=== PATIENT | male | born 1960 | race Caucasian/White ===

== ENCOUNTER 2020-09-10 12:50 | Inpatient (IN) | payer OTHER ==
[~2020-09-10] VITALS: Ht 170.2 cm; Wt 82.5 kg
[~2020-09-10 12:50] MED LIST: ASPI81CH PO; CHLO10 PO; DIAZ5 PO; DOCU100 PO; ERGO50000 PO; HYDACE10B PO; IBUP400; IBUP800 PO; LISHYD1012; LISHYD1012 PO; OXYACE5T PO; OXYC5 PO; PROM25 PO; SIMV10 PO; TRAM50; TRAM50 PO; Veetids 500500 MG PO
[2020-09-10 13:47] LABS: BASOPHILS ABSOLUTE AUTO 0.07 K/mm3 (0.00-0.23); BASOPHILS PERCENT AUTO 1 % (0-2); EOSINOPHILS ABSOLUTE AUTO 0.04 K/mm3 (0.00-0.68); EOSINOPHILS PERCENT AUTO 1 % (0-6); Hematocrit 33.1 % (37.0-53.0); Hemoglobin 11.3 g/dL (13.5-17.5); IMMATURE GRAN ABSOLUTE AUTO 0.04 K/mm3 (0.00-0.10); IMMATURE GRAN PERCENT AUTO 1 % (0-1); LYMPHOCYTES ABSOLUTE AUTO 1.17 K/mm3 (0.84-5.20); LYMPHOCYTES PERCENT AUTO 20 % (21-46); MONOCYTES ABSOLUTE AUTO 0.52 K/mm3 (0.16-1.47); MONOCYTES PERCENT AUTO 9 % (4-13); Mean Corpuscular HGB 30.6 pg (26.0-34.0); Mean Corpuscular HGB Conc 34.1 g/dL (31.5-36.5); Mean Corpuscular Volume 90 fL (80-100); Mean Platelet Volume 10.9 fL (9.1-12.4); NEUTROPHILS ABSOLUTE AUTO 4.12 K/mm3 (1.96-9.15); NEUTROPHILS PERCENT AUTO 69 % (41-73); NRBC ABSOLUTE 0.29 K/mm3 (0.00-0.02); NRBC Auto 4.9 /100 WBC (0.0-0.2); Platelet Count 91 K/mm3 (150-400); RDW Coefficient Variation 15.5 % (11.7-14.2); RDW Standard Deviation 50.4 fL (35.1-46.3); Red Blood Cell Count 3.69 M/mm3 (4.30-5.90); White Blood Cell Count 5.96 K/mm3 (4.00-11.30)
[2020-09-10 14:12] LABS: Alanine Aminotransfer (ALT/SGP 73 U/L (12-78); Albumin, Blood 2.8 g/dL (3.4-5.0); Albumin/Globulin Ratio 0.5 (0.8-1.8); Alk Phos 311 U/L (50-136); Anion Gap 10 mmol/L (6-16); Aspartate Aminotrans (AST/SGOT 196 U/L (12-37); Bilirubin, Total 4.6 mg/dL (0.1-1.0); Blood Urea Nitrogen 17 mg/dL (8-24); Bun/Creatinine Ratio 16.2 (12.0-20.0); CO2, Blood 24 mmol/L (21-32); Calcium, Blood 9.3 mg/dL (8.5-10.1); Chloride, Blood 94 mmol/L (98-108); Creatinine, Blood 1.05 mg/dL (0.60-1.20); Globulin, Blood 5.3 g/dL (2.2-4.0); Glomerular Filtration Rate >60 (60-); Glucose, Blood 154 mg/dL (70-99); Potassium, Blood 3.8 mmol/L (3.5-5.5); Sodium, Blood 128 mmol/L (136-145); Total Protein, Blood 8.1 g/dL (6.4-8.2); Troponin I <0.015 ng/mL (0.000-0.040)
[2020-09-10 17:03] LABS: Appearance, Urine Clear (Clear); Blood, Urine 2+ (Neg); Color, Urine Brown (P-Yellow); Glucose Qualitative, Urine Neg (Neg); Ketones, Urine 2+ (Neg); Leukocyte Esterase, Urine 1+ (Neg); Nitrite, Urine Neg (Neg); Protein, Urine 2+ (Neg); Specific Gravity, Urine 1.015 (1.003-1.022); Urobilinogen, Urine 4+ (Normal)
[2020-09-10 17:23] LABS: Bilirubin, Urine 2+ (Neg)
[2020-09-10 17:24] LABS: Squamous Epithelial Cells Rare /hpf (Few); White Blood Cells, Urine 0-2 /hpf (0-5)
[2020-09-10 17:34] LABS: Mucus Light (0-Heavy)
[2020-09-10 17:35] LABS: Bacteria Mod /hpf
[2020-09-10 21:04] LABS: Alanine Aminotransfer (ALT/SGP 60 U/L (12-78); Albumin, Blood 2.3 g/dL (3.4-5.0); Albumin/Globulin Ratio 0.5 (0.8-1.8); Alk Phos 250 U/L (50-136); Anion Gap 8 mmol/L (6-16); Aspartate Aminotrans (AST/SGOT 171 U/L (12-37); Bilirubin, Total 3.7 mg/dL (0.1-1.0); Blood Urea Nitrogen 15 mg/dL (8-24); CO2, Blood 24 mmol/L (21-32); Calcium, Blood 8.2 mg/dL (8.5-10.1); Chloride, Blood 97 mmol/L (98-108); Creatinine, Blood 0.94 mg/dL (0.60-1.20); Globulin, Blood 4.5 g/dL (2.2-4.0); Glomerular Filtration Rate >60 (60-); Glucose, Blood 252 mg/dL (70-99); Magnesium, Blood 1.9 mg/dL (1.6-2.4); Potassium, Blood 3.5 mmol/L (3.5-5.5); Sodium, Blood 129 mmol/L (136-145); Total Protein, Blood 6.8 g/dL (6.4-8.2)
[2020-09-10 23:52] LABS: Influenza A, PCR Negative (NEGATIVE); Influenza B, PCR Negative (NEGATIVE); Resp Syncytial Virus, PCR Negative (NEGATIVE); SARS-Cov-2 (COVID-19) PCR, MMC Negative (NEGATIVE)
[2020-09-11 02:20] LABS: BASOPHILS ABSOLUTE AUTO 0.03 K/mm3 (0.00-0.23); BASOPHILS PERCENT AUTO 1 % (0-2); EOSINOPHILS ABSOLUTE AUTO 0.07 K/mm3 (0.00-0.68); EOSINOPHILS PERCENT AUTO 2 % (0-6); Hematocrit 27.3 % (37.0-53.0); Hemoglobin 9.3 g/dL (13.5-17.5); IMMATURE GRAN ABSOLUTE AUTO 0.03 K/mm3 (0.00-0.10); IMMATURE GRAN PERCENT AUTO 1 % (0-1); LYMPHOCYTES ABSOLUTE AUTO 1.04 K/mm3 (0.84-5.20); LYMPHOCYTES PERCENT AUTO 22 % (21-46); MONOCYTES PERCENT AUTO 11 % (4-13); Mean Corpuscular HGB Conc 34.1 g/dL (31.5-36.5); Mean Corpuscular Volume 91 fL (80-100); Mean Platelet Volume 10.7 fL (9.1-12.4); NEUTROPHILS ABSOLUTE AUTO 3.05 K/mm3 (1.96-9.15); NEUTROPHILS PERCENT AUTO 65 % (41-73); NRBC ABSOLUTE 0.27 K/mm3 (0.00-0.02); NRBC Auto 5.7 /100 WBC (0.0-0.2); Platelet Count 77 K/mm3 (150-400); RDW Coefficient Variation 15.3 % (11.7-14.2); RDW Standard Deviation 51.2 fL (35.1-46.3); White Blood Cell Count 4.72 K/mm3 (4.00-11.30)
[2020-09-11 02:35] LABS: Alanine Aminotransfer (ALT/SGP 57 U/L (12-78); Albumin, Blood 2.1 g/dL (3.4-5.0); Albumin/Globulin Ratio 0.5 (0.8-1.8); Alk Phos 244 U/L (50-136); Anion Gap 9 mmol/L (6-16); Aspartate Aminotrans (AST/SGOT 180 U/L (12-37); Bilirubin, Total 3.8 mg/dL (0.1-1.0); Blood Urea Nitrogen 15 mg/dL (8-24); Bun/Creatinine Ratio 13.3 (12.0-20.0); CO2, Blood 24 mmol/L (21-32); Chloride, Blood 99 mmol/L (98-108); Creatinine, Blood 1.13 mg/dL (0.60-1.20); Globulin, Blood 4.2 g/dL (2.2-4.0); Glomerular Filtration Rate >60 (60-); Glucose, Blood 119 mg/dL (70-99); Potassium, Blood 3.6 mmol/L (3.5-5.5); Sodium, Blood 132 mmol/L (136-145); Total Protein, Blood 6.3 g/dL (6.4-8.2)
--- NOTE | 2020-09-11 05:03 | NUR ---
SHIFT SUMMARY ASUUMED CARE OF PT AT 2230. PT IS A/OX4, BUT FORGETFUL. FOR EXAMPLE, PT STATED THAT HE ALREADY HAD A CARONA VIRUS TEST IN THE ED BUT UPON INVESTIGATION HE DID NOT. HEART SOUNDS REUGLAR, TELE SHOWS SINUS TACH @ 105, HR INCREASES WITH MOVEMENT. LUNG SOUNDS HAVE WHEEZES IN THE BASES, PT IS AN EVERYDAY SMOKER. PT STATES THAT HE GETS SOB WITH ACTIVITY. PT WAS INCONTIENT OF URINE, URINE IS DARK ORANGE. PT IS HAVING DIARRHEA, ABD IS SEVERLY DISTENDED AND FIRM, PT HAS WHAT LOOKS LIKE A HERNIA ON HIS ABD. PT LEGS ARE DISCOLORED, PULSES FAINT. PT HAS BRUISE ON R SIDE, PT STATES HE FELL ABOUT 3 DAYS AGO, PPT SKIN AND SCLERA ARE JAUNDICED. PT STATES TO ME THAT HE ONLY DRUNKS EVERY 2-3 DAYS AND ONLY 1-2 BEERS. CIWAH SCORE HAS BEEN 4, FOR TREMORS. PT SON JAROCHO IS HIS SHOULDER JOINER AND PT LIVES WITH HIS GIRLFRIEND IN A HOUSE. PT ATTEMPTES TO STAND TO USE THE URINAL BUT ONLY WAS ABLE TO STAND FOR ABOUT 5 SECONDS. CALL LIGHT IN REACH, BED IN LOWEST POSTION.
[2020-09-11 09:15] LABS: Percent Saturation 87.9 % (20.0-50.0)
--- NOTE | 2020-09-11 17:08 | NUR ---
SHIFT SUMMARY PT AWAKE DURING SHIFT REPORT. DENIED NEEDS AT THAT TIME. PT SOON ATTEMPTING TO GET OOB, SETTING OFF BED ALARM. PT CONFUSED AND FORGETFULL. PT'S DAUGHTER CALLD LATER AND REPORTED PT WITH DEMENTIA; BASELINE CONFUSION AND FORGETFUL. PT WITH ASCITES AND CIRRHOSIS; HX ETOH ABUSE. DR CARDONA IN TO SEE PT TODAY. PT TO WORK WITH PT/OT AND GET STRONGER BEFORE D/C TO HOME. PT ADMITTED FOR LOW NA+ AND WEAKNESS. NA+ LEVEL IMPROVED. PT HAS BEEN OOB SEVERAL TIMES AND UP TO BSC FOR LOOSE STOOLS. ABLE TO USE URINAL SOMETIMES WITH ASSIST; OTHERWISE INCONTINENT OF BOWEL AND BLADDER. MEDICATED FOR LBP PRIOR TO DAY SHIFT. PT DECLINED NEEDING PAIN MEDICATION TO PRESENT; WILL WAIT UNTIL CLOSER TO BEDTIME. PT'S DAUGHTER CALLED FOR UPDATE THIS AM AND THEN CAME IN TO SEE PT. UPDATE GIVEN AGAIN AND QUESTIONS ANSWERED. DAUGHTER REMAINS AT BS TO PRESENT. PT HAS BEEN USING CALL LT BETTER THIS AFTERNOON THAN AT START OF SHIFT. CALL LT IN REACH. BED ALARM ON FOR SAFETY.
--- NOTE | 2020-09-11 17:46 | NUR ---
ADMIT:09/10/20 DISCHARGE: DX: Nausea and vomiting CC: SHOSHANA CALL: RESIDENCE: Home CAREGIVER: self DX: HTN, Dyslipidemia, Osteoarthritis, see list DME: None CCM: Referral 2018 HOME HEALTH: None SUMMARY: Admit 09/10/20 09/11/19 PT rec group home facility, multimedia instructional designer care, Front wheel walker, Gait belt 09/11/[address] Funk, will make discharge decisions based off PT OT evaluations Possible Eta discharge 09/12/20 snf facility. Will discuss snf preference with patient on Friday. CP 09/10/20 22:30== ALCOHOL DETOXIFICATION WITHDRAWAL ASSESSMENT === Nausea and vomiting/ 0 None + Tremors/ 4 Moderate w/arms extended + Admit: 09/10/20 1. Intractable nausea and vomiting. CT abdomen and pelvis showing no acute findings. Continue supportive care with IV fluids and Zofran as needed, could be in the setting of alcohol abuse. 2. Possible urinary tract infection. The patient started on Rocephin.
--- NOTE | 2020-09-12 01:13 | NUR ---
MENTATION HAVING SOME HALLUCINATIONS. SEEING A CAT. ASKING IF WE COULD GO GET HIM SOME ALCOHOL. RE-ORIENTS EASILY; HOWEVER DOESNT FULLY KNOW WHERE HE IS BEFORE. WILL CONTINUE WITH CURRENT PLAN OF CARE
--- NOTE | 2020-09-12 04:22 | NUR ---
SHIFT SUMMARY ALERT WITH NOTED CONFUSION. RE-DIRECTS VERY EASILY. NO C/O PAIN/DISCOMFORT. COOPERATIVE WITH CARE. CONTINUES TO STATE HAS TO VOID/BM; HOWEVER, MINIMAL OUTPUT AND SMEARS. 2P MAX TRANSFER TO BSC; USED BEDPAN T/O NIGHT. HAD SOME HALLUCINATIONS; ALTHOUGH, MOSTLY THINKING HE IS ELSEWHERE, WHEN REMINDED HE IS AT THE HOSPITAL "[facility]". HE KNOWS HE IS AT [facility] WHEN RE-DIRECTED. ABLE TO ANSWER QUESTIONS APPROPRIATELY. CIWA HAS SHOWN 1 T/O SHIFT FOR MILD ANXIETY; HOWEVER THIS AM CIWA SCORE INCREASED TO 7. CONTINUES TO INFUSE FLUIDS WITHOUT COMPLICATION. TELE RUNNING ST. BED REAMINS IN LOWEST POSITION; ALARM ON. CALL LIGHT AND BELONGINGS WITHIN REACH. REPORT TO ONCOMING RN.
[2020-09-12 16:03] LABS: Anion Gap 9 mmol/L (6-16); Blood Urea Nitrogen 8 mg/dL (8-24); Bun/Creatinine Ratio 9.2 (12.0-20.0); CO2, Blood 25 mmol/L (21-32); Calcium, Blood 8.5 mg/dL (8.5-10.1); Chloride, Blood 103 mmol/L (98-108); Creatinine, Blood 0.87 mg/dL (0.60-1.20); Glomerular Filtration Rate >60 (60-); Glucose, Blood 102 mg/dL (70-99); Potassium, Blood 3.4 mmol/L (3.5-5.5); Sodium, Blood 137 mmol/L (136-145)
--- NOTE | 2020-09-12 17:24 | NUR ---
SHIFT SUMMARY PT AWAKE DURING SHIFT REPORT, ATTEMPTING TO GET OOB AND PULLING TELE LEADS OFF. PT CONFUSED AND DISORIENTED ALL NIGHT AND MORE SO TODAY. CIWA'S INCREASING TODAY. PT FREQUENTLY TRYING TO GET OOB AND PULLING OFF ALL LINES AND IV SITE OUT. DR CARDONA IN TO SEE PT. NEW ORDERS PLACED. PT HAS REMAINED CONFUSED AND DISORIENTED EVEN WHEN SON CAME IN TO SEE HIM. SON WAS UNABLE TO ORIENT PT TODAY. PT IS BECOMING MORE AGITATED THIS AFTERNOON AND EVENING. NOT WANTING TO CO-OP WITH CHANGING ATTENDS; PT IS MOSTLY INCONTINENT OF BOWEL AND BLADDER. ABLE TO USE URINAL SOMETIMES. ATIVAN AND LIBRIUM GIVEN FOR WITHDRAWL S/SX. BED ALARM ON FOR SAFETY. CALL LT IN REACH.
--- NOTE | 2020-09-12 18:32 | NUR ---
ADMIT:09/10/20 DISCHARGE: DX: Nausea and vomiting CC: SHOSHANA CALL: RESIDENCE: Home CAREGIVER: self Moira Morgan [phone] DX: HTN, Dyslipidemia, Osteoarthritis, see list DME: None CCM: Referral 2018 HOME HEALTH: None SUMMARY: Admit 09/10/20 09/12/[address] Funk, Kevin needed Libruim last night, is dilusional today. No ETA for discharge at this time. Met with Floor nurse Kendra, recommended that I not try to assess him at this time. She is recommending that I contact a family member to discuss Alcohol dementia. I only have 1 Hippa contact in his [place] chart, Moira Morgan, spouce, . I will try to contact Moira on Friday. CP Alcohol detox score of 8 this morning.
[2020-09-13 04:58] LABS: BASOPHILS ABSOLUTE AUTO 0.06 K/mm3 (0.00-0.23); BASOPHILS PERCENT AUTO 1 % (0-2); EOSINOPHILS ABSOLUTE AUTO 0.09 K/mm3 (0.00-0.68); EOSINOPHILS PERCENT AUTO 2 % (0-6); Hemoglobin 9.8 g/dL (13.5-17.5); IMMATURE GRAN ABSOLUTE AUTO 0.09 K/mm3 (0.00-0.10); IMMATURE GRAN PERCENT AUTO 2 % (0-1); LYMPHOCYTES ABSOLUTE AUTO 1.39 K/mm3 (0.84-5.20); LYMPHOCYTES PERCENT AUTO 25 % (21-46); MONOCYTES ABSOLUTE AUTO 0.65 K/mm3 (0.16-1.47); MONOCYTES PERCENT AUTO 12 % (4-13); Mean Corpuscular HGB 30.6 pg (26.0-34.0); Mean Corpuscular HGB Conc 33.8 g/dL (31.5-36.5); Mean Corpuscular Volume 91 fL (80-100); Mean Platelet Volume 11.2 fL (9.1-12.4); NEUTROPHILS ABSOLUTE AUTO 3.36 K/mm3 (1.96-9.15); NEUTROPHILS PERCENT AUTO 60 % (41-73); NRBC ABSOLUTE 0.24 K/mm3 (0.00-0.02); NRBC Auto 4.3 /100 WBC (0.0-0.2); Platelet Count 98 K/mm3 (150-400); RDW Coefficient Variation 16.1 % (11.7-14.2); White Blood Cell Count 5.64 K/mm3 (4.00-11.30)
[2020-09-13 05:06] LABS: International Normalized Ratio 1.5; Prothrombin Time Results 15.7 Sec (9.7-11.5)
--- NOTE | 2020-09-13 05:07 | NUR ---
SUMMARY PT HAS SLEPT T/O SHIFT. PT IS CONFUSED AND INCOMPREHENSIBLE. PT DOES FOLLOW SIMPLE DIRECTIONS. PT HAD NO ISSUES NOTED. PT CURRENTLY SLEEPING AND BREATHING EASY. CALL LIGHT IN REACH.
[2020-09-13 05:14] LABS: Albumin, Blood 2.2 g/dL (3.4-5.0); Albumin/Globulin Ratio 0.5 (0.8-1.8); Bilirubin, Direct 3.6 mg/dL (0.0-0.3); Bilirubin, Indirect 1.1 mg/dL (0.1-0.7); Bilirubin, Total 4.7 mg/dL (0.1-1.0); Globulin, Blood 4.3 g/dL (2.2-4.0); Total Protein, Blood 6.5 g/dL (6.4-8.2)
--- NOTE | 2020-09-13 17:09 | NUR ---
09/13/20 s/w Moira by telephone, states that Kevin has been having trouble making descions for the last 3 years. He lost his appetite at [place], in the last week he only drank 3 40oz beers. Friday was the last day he walked. He has been to weak to walk since then. 09/13/20 s/w Daughter Erik, Applied for OHP for Kevin at [facility]. It has been approved. Family is discussing applying for disability, Medicaid for caregiver assistance. I gave her information about applying for Medicaid and list of caregivers. Josue did not participate with PT today, remains SNF recommendation OT did work with him, remains heavy 2 person assist. Snf recommendation Daughter Erik would prefer a SNF of her choice up in [place] where a family member works. Per Dr Funk, no ETA discharge at this time.
--- NOTE | 2020-09-13 17:59 | NUR ---
PATIENT MORE ALERT THROUGHOUT THE DAY. WAKES EASILY TO VOICE AND WAS ABLE TO ANSWER QUESTIONS MORE APPROPRIATELY. CIWA OF 4 DUE TO TREMORS. NEEDS ASSISTANCE WITH MEALS. REPORTS PAIN IN BACK AND LEGS, TRAMADOL AND OXYCODONE GIVEN TO TREAT. FALL PRECAUTIONS IN PLACE, PATIENT DID NOT ATTEMPT TO GET UP UNASSISTED TODAY. CONDOM CATH PLACED DUE TO HEAVY WETTING. ASSISTING TO TURN Q2 HOURS. WORKED WITH OT TODAY.
[2020-09-14 05:11] LABS: BASOPHILS ABSOLUTE AUTO 0.08 K/mm3 (0.00-0.23); BASOPHILS PERCENT AUTO 1 % (0-2); EOSINOPHILS ABSOLUTE AUTO 0.13 K/mm3 (0.00-0.68); EOSINOPHILS PERCENT AUTO 2 % (0-6); Hematocrit 29.8 % (37.0-53.0); Hemoglobin 10.1 g/dL (13.5-17.5); IMMATURE GRAN ABSOLUTE AUTO 0.08 K/mm3 (0.00-0.10); IMMATURE GRAN PERCENT AUTO 1 % (0-1); LYMPHOCYTES ABSOLUTE AUTO 1.76 K/mm3 (0.84-5.20); LYMPHOCYTES PERCENT AUTO 25 % (21-46); MONOCYTES ABSOLUTE AUTO 0.83 K/mm3 (0.16-1.47); MONOCYTES PERCENT AUTO 12 % (4-13); Mean Corpuscular HGB 31.2 pg (26.0-34.0); Mean Corpuscular HGB Conc 33.9 g/dL (31.5-36.5); Mean Corpuscular Volume 92 fL (80-100); Mean Platelet Volume 12.6 fL (9.1-12.4); NEUTROPHILS ABSOLUTE AUTO 4.04 K/mm3 (1.96-9.15); NEUTROPHILS PERCENT AUTO 58 % (41-73); NRBC ABSOLUTE 0.17 K/mm3 (0.00-0.02); NRBC Auto 2.5 /100 WBC (0.0-0.2); Platelet Count 104 K/mm3 (150-400); RDW Coefficient Variation 16.5 % (11.7-14.2); RDW Standard Deviation 54.4 fL (35.1-46.3); Red Blood Cell Count 3.24 M/mm3 (4.30-5.90); White Blood Cell Count 6.92 K/mm3 (4.00-11.30)
[2020-09-14 05:26] LABS: International Normalized Ratio 1.44; Prothrombin Time Results 15.1 Sec (9.7-11.5)
--- NOTE | 2020-09-14 05:36 | NUR ---
SHIFT SUMMARY: AOX3 START OF SHIFT, EVENING CONTINUED HE DID BECOME FORGETFUL. COOPERATIVE. ETOH WITHDRAWLS SCORE OF 0-2. NO LIBRIUM OR ATIVAN NEEDED. OXYCODONE GIVEN X1 FOR PAIN MANAGMENT. ENCOURAGED FLUIDS, URINE DARK. SMALL LOOSE STOOL,INCONTIENT. BRUISING TO SIDE AND BACK HEALING. MILD EDEMA TO BLE. HYPERTENSIVE 150'S/90. REST OF VITALS GOOD. SOME NASAL CONGESTION NOTED, WITH BRONCHIAL MUCUS. ENCOURAGED DEEP BREATHING AND COUGH. POOR APPETITE. DAUGHTER CALLED-VERY CONCERNED OF HIM GOING HOME, WILL NEED CAREGIVERS HE IS ALONE 14 HOURS OF THE DAY. SLEPT WELL T/O THE NIGHT. NO ACUTE CHANGES TO REPORT. CALL LIGHT REMAINED IN REACH.
[2020-09-14 05:40] LABS: Alanine Aminotransfer (ALT/SGP 58 U/L (12-78); Albumin, Blood 2.1 g/dL (3.4-5.0); Albumin/Globulin Ratio 0.5 (0.8-1.8); Alk Phos 322 U/L (50-136); Anion Gap 8 mmol/L (6-16); Aspartate Aminotrans (AST/SGOT 157 U/L (12-37); Blood Urea Nitrogen 13 mg/dL (8-24); CO2, Blood 31 mmol/L (21-32); Calcium, Blood 8.4 mg/dL (8.5-10.1); Chloride, Blood 99 mmol/L (98-108); Globulin, Blood 4.3 g/dL (2.2-4.0); Glomerular Filtration Rate >60 (60-); Glucose, Blood 85 mg/dL (70-99); Potassium, Blood 2.9 mmol/L (3.5-5.5); Sodium, Blood 138 mmol/L (136-145); Total Protein, Blood 6.4 g/dL (6.4-8.2)
--- NOTE | 2020-09-14 18:11 | NUR ---
09/14/[address] CARDONA, EVIDENCE OF HEPATIC ENCEPHALOPATHY, BEGIN LACTULOSE 20 G DAILY. LUCIE MENTATION IS IMPROVING, MEDICALLY STABLE TO DISCHARGE TO SNF FOR REHAB. ESTHER WANTS TO GO TO [facility] IN [place]. I HAVE COMPLETED A REFERRAL CHECK LIST AND FAXED TO [facility] IN CARE MANAGEMENT, SHE WILL ASSIGN A [facility] PROFESSOR OF CHEMICAL ENGINEERING TO ASSIST WITH DISCHARGE TO [facility]. PLEASE UPDATE DAUGHTER KARYNA REGARDING CHANGES OR DISCHARGE PLANS FOR LUCIE. DR GOMEZ FEELS LUCIE IS MEDICALLY STABLE TO DISCHARGE TO SNF, PT RECOMMENDS SNF, 2 PERSON ASSIST FOR CARE. LUCIE WAS WALKING ON HIS OWN A WEEK BEFORE ADMITTING. PLANS TO RETURN HOME WITH CAREGIVERS POST SNF. ALCOHOL DETOX SCORE 0
--- NOTE | 2020-09-14 18:18 | NUR ---
PATIENT HAD A MUCH BETTER DAY. ABLE TO GET UP WITH 2 MAX ASSIST TO CHAIR WITH PT. LACTULOSE GIVEN ONCE AND PATIENT HAD 4 BM'S TODAY. MAG AND POTASSIUM REPLACED TODAY. APPETITE STILL POOR, BUT IMPROVING. PATIENT DID HAVE BETTER FLUID INTAKE TODAY. ST ON TELE. TRAMADOL AND OXYCODONE USED TO TREAT BACK PAIN. PATIENT A/OX4, BUT SLOW TO RESPOND. FAMILY EXPRESSED CONCERN ABOUT PATIENT GOING TO A SNF AND WOULD LIKE TO DISCUSS CAREGIVER OPTIONS.
--- NOTE | 2020-09-14 20:03 | NUR ---
ASSUMED CARE. ESTHER IS AOX3, SITTING UP IN THE BED WATCHING TV. REPORTS PAIN IN BACK 04/17. OXYCODONE GIVEN. HAS HAD 4 BM TODAY, WITHHELD LACTOLOSE. ENCOURAGED DRINKING. ATTENDS DRY. NO EDEMA TODAY. LUNGS ARE CLEAR BUT DIMINISHED IN THE BASES. ENCOURAGED DEEP BREATHING AND COUGHING. NO S/SX OF ETOH WITHDRAWL. DENIES ANY OTHER NEEDS AT THIS TIME. CALL LIGHT IS IN REACH.
--- NOTE | 2020-09-15 04:58 | NUR ---
SHIFT SUMMARY: AOX3, COOPERATIVE. NO TREMORS OR SIGNS OF ETOH W/D. INCREASE IN FLUID INTAKE AND APPETITE. IS FORGETFUL. PAIN IN RIGHT SHOULDER AND BACK, ASK FOR PAIN MEDS FREQUENTLY HE FORGETS WHEN HE LAST HAD THEM. NO LACTOLOSE ON THIS SHIFT DUE TO 4 BM ON DAYSHIFT. EDEMA IMPROVED. TACHY IN THE 110'S VS THIS AM WNL. SLEPT WELL T/O SHIFT. OCCATIONAL COUGH, STATES HE IS GETTING SOME MUCUS UP BUT HAVE NOT SEEN IT. LUNGS CLEAR BUT DIMINISHED IN BASES. NO OTHER CHANGES TO REPORT.
[2020-09-15 05:11] LABS: BASOPHILS ABSOLUTE AUTO 0.09 K/mm3 (0.00-0.23); BASOPHILS PERCENT AUTO 1 % (0-2); EOSINOPHILS PERCENT AUTO 3 % (0-6); Hematocrit 31.1 % (37.0-53.0); Hemoglobin 10.3 g/dL (13.5-17.5); IMMATURE GRAN ABSOLUTE AUTO 0.13 K/mm3 (0.00-0.10); IMMATURE GRAN PERCENT AUTO 2 % (0-1); LYMPHOCYTES ABSOLUTE AUTO 1.77 K/mm3 (0.84-5.20); LYMPHOCYTES PERCENT AUTO 22 % (21-46); MONOCYTES ABSOLUTE AUTO 0.86 K/mm3 (0.16-1.47); MONOCYTES PERCENT AUTO 11 % (4-13); Mean Corpuscular HGB 30.4 pg (26.0-34.0); Mean Corpuscular HGB Conc 33.1 g/dL (31.5-36.5); Mean Corpuscular Volume 92 fL (80-100); Mean Platelet Volume 11.9 fL (9.1-12.4); NEUTROPHILS ABSOLUTE AUTO 5.02 K/mm3 (1.96-9.15); NEUTROPHILS PERCENT AUTO 62 % (41-73); NRBC ABSOLUTE 0.14 K/mm3 (0.00-0.02); NRBC Auto 1.7 /100 WBC (0.0-0.2); Platelet Count 101 K/mm3 (150-400); RDW Coefficient Variation 18.2 % (11.7-14.2); RDW Standard Deviation 54.8 fL (35.1-46.3); Red Blood Cell Count 3.39 M/mm3 (4.30-5.90); White Blood Cell Count 8.07 K/mm3 (4.00-11.30)
[2020-09-15 05:38] LABS: Alanine Aminotransfer (ALT/SGP 55 U/L (12-78); Albumin/Globulin Ratio 0.4 (0.8-1.8); Alk Phos 353 U/L (50-136); Anion Gap 9 mmol/L (6-16); Aspartate Aminotrans (AST/SGOT 147 U/L (12-37); Bilirubin, Indirect 1.2 mg/dL (0.1-0.7); Bilirubin, Total 6.2 mg/dL (0.1-1.0); Blood Urea Nitrogen 14 mg/dL (8-24); Bun/Creatinine Ratio 13.7 (12.0-20.0); CO2, Blood 28 mmol/L (21-32); Calcium, Blood 8.2 mg/dL (8.5-10.1); Chloride, Blood 96 mmol/L (98-108); Creatinine, Blood 1.02 mg/dL (0.60-1.20); Globulin, Blood 4.6 g/dL (2.2-4.0); Glomerular Filtration Rate >60 (60-); Glucose, Blood 92 mg/dL (70-99); Magnesium, Blood 1.4 mg/dL (1.6-2.4); Potassium, Blood 3.5 mmol/L (3.5-5.5); Sodium, Blood 133 mmol/L (136-145); Total Protein, Blood 6.6 g/dL (6.4-8.2)
[2020-09-15 05:50] LABS: Phosphorus, Blood 0.7 mg/dL (2.5-4.9)
--- NOTE | 2020-09-15 06:13 | NUR ---
CRITICAL PHOSPHORUS LEVEL OF 0.7. CALLED INTO DR. ANDERSON. ORDER RECEIVED FOR SODIUM PHOS IV. WILL PUT ORDER IN.
--- NOTE | 2020-09-15 13:45 | NUR ---
09/15/20- PER CHART REVIEW WITH DR. CARDONA, PT HAS NO EST ETA FOR D/C AT THIS TIME DUE TO ABNORMAL LIVER LABS AND NO REAL ETIOLOGY CAUSATION. PT NOTE STATED THAT THEY ARE STILL RECOMMENDING PT FOR SNF - kjw
--- NOTE | 2020-09-15 18:09 | NUR ---
SHIFT SUMMARY PATIENT ALERT AND ORIENTED X3 THIS SHIFT. PATIENT'S ATTENTION FREQUENTLY DRIFTS AWAY FROM THE CONVERSATION. PATIENT LAYING IN BED THROUGHOUT THIS SHIFT. PATIENT MEDICATED FOR PAIN IN THE BACK AND FEET THROUGHOUT THIS SHIFT. PATIENT ATE LITTLE OF HIS BREAKFAST OR LUNCH. PATIENT MEDICATED WITH LACTALOSE 3X THIS SHIFT PER EMAR, IS WITHOUT A BM THIS SHIFT. PATIENT'S DAUGHTER IN THE ROOM FOR SEVERAL HOURS THIS AFTERNOON. PATIENT SLEPT MUCH OF THE AFTERNOON. PATIENT IS CURRENTLY SITTING UP IN BED EATING DINNER.
--- NOTE | 2020-09-15 20:48 | NUR ---
ASSUMED CARE. ABLE TO ANSWER ALL ORIENTATION QUESTIONS, STILL FORGETFUL AND APPERS TO BE HAVING TROUBLE COMPERHENDING. HE THOUGHT HE GOT OUT OF BED TODAY WHEN TALKING TO HIM, WHEN HE WAS NOT ABLE TO STAND. JAUDICE, NO BM TODAY. NO EDEMA. ATTENDS DRY. LUNGS DIMINISHED IN BASES. OCCATIONAL DRY COUGH. BRUISING IMPROVING. POOR APPETITE, ENCOURAGED DRINKING STILL. WILL MONITOR THROUGHOUT THE NIGHT. CALL LIGHT IS IN REACH.
[2020-09-16 05:40] LABS: International Normalized Ratio 1.31; Prothrombin Time Results 13.8 Sec (9.7-11.5)
[2020-09-16 06:10] LABS: Alanine Aminotransfer (ALT/SGP 49 U/L (12-78); Albumin/Globulin Ratio 0.4 (0.8-1.8); Alk Phos 366 U/L (50-136); Anion Gap 9 mmol/L (6-16); Aspartate Aminotrans (AST/SGOT 137 U/L (12-37); Bilirubin, Total 7.4 mg/dL (0.1-1.0); Blood Urea Nitrogen 14 mg/dL (8-24); Bun/Creatinine Ratio 13.3 (12.0-20.0); CO2, Blood 28 mmol/L (21-32); Chloride, Blood 96 mmol/L (98-108); Creatinine, Blood 1.05 mg/dL (0.60-1.20); Globulin, Blood 4.8 g/dL (2.2-4.0); Glomerular Filtration Rate >60 (60-); Glucose, Blood 97 mg/dL (70-99); Phosphorus, Blood 2.4 mg/dL (2.5-4.9); Potassium, Blood 3.6 mmol/L (3.5-5.5); Sodium, Blood 133 mmol/L (136-145); Total Protein, Blood 6.8 g/dL (6.4-8.2)
--- NOTE | 2020-09-16 06:52 | NUR ---
SHIFT SUMMARY: AOX3 BUT HAS DIFFICULTY AT TIMES WITH COMPERHENSION AND REMEMBERING. NOT VERY MOTIVATED TO GET SELF WELL. NO S/S OF ETOH. POOR APPETITE. STILL TACHYCARDIC IN 110'S REST OF VITALS GOOD. INCONTIENT OF BOWEL AND URINE. HAS SEVERAL BM LAST NIGHT LOOSE. JAUDICE. MINIMAL PAIN, GAVE ULTRAM X1. DISCUSSED PT AND NEED FOR SNF. HE STATES HE WAS WALKING NOT VERY WELL AT HOME. ENCOURAGED HIM TO WORK WITH PT TODAY HE IS GETTING STIFF. EDEMA IN BLE AND HIPS. BRUISING IMPROVING. NO OTHER CHANGES TO REPORT. CALL LIGHT IS IN REACH.
--- NOTE | 2020-09-16 18:11 | NUR ---
SHIFT SUMMARY. ALERT, ORIENTATED TO SELF, PLACE, FAMILY. PT HAD DIFFICULTY WITH DATE. PT IS ALSO [place], WHICH COMPLICATES ASSESSMENT. PT CONTINUES WITH JAUNDICED SKIN, SCLERA IS MOSTLY OFF WHITE COLOR. PT DENIES N/V, POOR MEAL INTAKE. NO BM SINCE NOC SHIFT, AM DOSE OF LACTOSE HELD DUE TO REPORT OF 4 BM'S ON NOC. K-PHOS RIDER INFUSED. PT C/O PAIN TO BILATERAL ANKLES THAT WAS MANAGED WELL WITH ULTRAM. PT CONTINUES TO BE VERY WEAK AND WAS UNABLE TO BARE OWN WEIGHT, SIT TO STAND LIFT UTILIZED FOR TRANSFERS FOR SAFTEY. BED ALARM ACTIVATED DUE TO HIGH FALL RISK ALTHOUGH PT HAS NOT ATTEMPTED TO GET OOB WITHOUT ASSISTANCE. IN TO VISIT THIS AFTERNOON. NO OTHER CHANGES OR CONCERNS.
[2020-09-17 05:24] LABS: BASOPHILS ABSOLUTE AUTO 0.06 K/mm3 (0.00-0.23); BASOPHILS PERCENT AUTO 1 % (0-2); EOSINOPHILS ABSOLUTE AUTO 0.12 K/mm3 (0.00-0.68); EOSINOPHILS PERCENT AUTO 1 % (0-6); Hemoglobin 10.1 g/dL (13.5-17.5); IMMATURE GRAN ABSOLUTE AUTO 0.05 K/mm3 (0.00-0.10); IMMATURE GRAN PERCENT AUTO 1 % (0-1); LYMPHOCYTES ABSOLUTE AUTO 1.43 K/mm3 (0.84-5.20); LYMPHOCYTES PERCENT AUTO 17 % (21-46); MONOCYTES PERCENT AUTO 8 % (4-13); Mean Corpuscular HGB 30.6 pg (26.0-34.0); Mean Corpuscular HGB Conc 33.7 g/dL (31.5-36.5); Mean Corpuscular Volume 91 fL (80-100); NEUTROPHILS ABSOLUTE AUTO 6.14 K/mm3 (1.96-9.15); NEUTROPHILS PERCENT AUTO 72 % (41-73); NRBC ABSOLUTE 0.05 K/mm3 (0.00-0.02); NRBC Auto 0.6 /100 WBC (0.0-0.2); Platelet Count 109 K/mm3 (150-400); RDW Coefficient Variation 19.5 % (11.7-14.2); RDW Standard Deviation 58.7 fL (35.1-46.3)
--- NOTE | 2020-09-17 05:39 | NUR ---
HANDLE BENDER SUMMARY PT SLEPT FOR MOST OF THE SHIFT WAKING AT 0530 REQUETING PAIN MEDICATION FOR PAIN IN HIS ANKLES. PT WAS GIVEN 2100 LACTULOSE BUT ONLY HAD ONE BM THIS SHIFT. NO NEW S/S THIS SHIFT.
[2020-09-17 05:56] LABS: Alanine Aminotransfer (ALT/SGP 44 U/L (12-78); Albumin, Blood 1.8 g/dL (3.4-5.0); Albumin/Globulin Ratio 0.4 (0.8-1.8); Alk Phos 349 U/L (50-136); Anion Gap 10 mmol/L (6-16); Aspartate Aminotrans (AST/SGOT 119 U/L (12-37); Bilirubin, Direct 5.8 mg/dL (0.0-0.3); Bilirubin, Indirect 2.5 mg/dL (0.1-0.7); Bilirubin, Total 8.3 mg/dL (0.1-1.0); Blood Urea Nitrogen 15 mg/dL (8-24); Bun/Creatinine Ratio 13.4 (12.0-20.0); CO2, Blood 28 mmol/L (21-32); Calcium, Blood 7.5 mg/dL (8.5-10.1); Chloride, Blood 95 mmol/L (98-108); Creatinine, Blood 1.12 mg/dL (0.60-1.20); Globulin, Blood 4.6 g/dL (2.2-4.0); Glomerular Filtration Rate >60 (60-); Glucose, Blood 87 mg/dL (70-99); Magnesium, Blood 1.5 mg/dL (1.6-2.4); Phosphorus, Blood 3.4 mg/dL (2.5-4.9); Sodium, Blood 133 mmol/L (136-145); Total Protein, Blood 6.4 g/dL (6.4-8.2)
--- NOTE | 2020-09-17 10:59 | NUR ---
09/17/20- per chart review with Dr. Funk, pt has no ETA for d/c at this time. would like to continue to watch his liver labs. Updated DrBismark on family's plan to have girlfriend care for pt at home as she is a State certifed care provider. So when pt is ready to discharge, he will go home with a 24/7 ocular care technologist. Did ask him daughter's question about if her father will ever work again. Doctor feels that it is pre-mature to know the answer to this question and is something that could be assessed in a couple months. -jayla
--- NOTE | 2020-09-17 17:51 | NUR ---
SHIFT SUMMARY. ALERT, LESS LETHARGIC TODAY AND COGNITION SOMEWHAT IMPROVED FROM YESTERDAY. COMPREHENSION, MEMORY, AND CONVERSATION IMPROVED. PT C/O BILATERAL ANKLE PAIN ONCE THIS SHIFT, MANAGED WELL WITH PRN TRAMODOL. NO N/V, SOB. CONTINUES WITH POOR MEAL INTAKE AND APPETITE. IN TO VISIT THIS AFTERNOON. NO OTHER CHANGES OR CONCERNS.
--- NOTE | 2020-09-18 04:11 | NUR ---
JIG FILLER SUMMARY DAYSHIFT RN REPORTED THAT THE PT HAD IMPROVED MENTATION HOWEVER I BELIEVE THE PT TO BE MORE CONFUSED THIS SHIFT COMPARED TO PREVIOUS NIGHT HE HAS BEEN PULLING OFF TELE LEADS AND NOT MAKING SENSE W CONVERSATION. PT DRANK HIS 2100 LACTULOSE AND HAD ONE LOOSE BM THIS SHIFT. TELE- SINUS TACH 110'S, PT IS STABLE ON RM AIR. BED IS IN LOWEST POSITION W BED ALARM ON. WCTM.
--- NOTE | 2020-09-18 16:45 | NUR ---
Shift Summary A/Ox3, responses are delayed and slow. Pleasant and cooperative. Worked with PT/OT. Son at bedside for a portion of the day. Follows instructions well. CIWA 1-5. Medicated for ankle pain x 1 with minimal effect. Skin remains jaundice. Tele SR 92. No agitation or confusion noted this shift. No acute changes, will monitor and report to oncoming RN. Bed in lowest position. Bed alarm on.
--- NOTE | 2020-09-18 17:48 | NUR ---
09/18/[address] MARS, NO ETA FOR DISCHARGE OF TODAY. S/W GIRLFRIEND TODAY BY TELEPHONE, I ASKED IF SHE PLANNED TO BE [facility] CAREGIVER UPON DISCHARGE. SHE DID NOT COMMIT TO IT, SAID SHE DID NOT WANT TO QUIT ONE OF HER JOBS. WE DICUSSED APPLYING FOR MEDICAID FOR CAREGIVER ASSISTANCE. I HAD REVIEWED WITH DAUGHTER, DAUGHTER HAS NOT FOLLOW UP YET TO APPLY. REMINDED GIRLFREIND IT IS A 45 DAY PROCESS TO BE REVIEWED FOR BENEFITS AND DISCHARGE PLANS WOULD NEED TO BE MADE WHILE THEY ARE WAITING FOR APPROVAL. SHE COMMITED TO APPLYING TODAY. i WILL REVIEW DISCHARGE STATUS WITH DR MARS ON FRIDAY. PT SAYS 2 PERSON ASSIST. RECOMMENDING SNF.
--- NOTE | 2020-09-19 04:39 | NUR ---
ORTHOPHOTOGRAPHY TECHNICIAN SUMMARY PT STILL VERY CONFUSED THIS SHIFT, TRYING TO EXIT THE BED MULTIPLE TIMES. PT WAS GIVEN 2100 LACTULOSE AND HAS HAD 5+ BOWEL MOVEMENTS THIS SHIFT. ABDOMEN REMAINS DISTENDED AND FIRM, JAUNDICE DOES NOT APPEAR ANY BETTER FROM PREVIOUS NIGHT. BP IS WNL AND STABLE, HR STILL TACHY. WCTM.
[2020-09-19 05:17] LABS: BASOPHILS ABSOLUTE AUTO 0.06 K/mm3 (0.00-0.23); BASOPHILS PERCENT AUTO 1 % (0-2); EOSINOPHILS ABSOLUTE AUTO 0.12 K/mm3 (0.00-0.68); EOSINOPHILS PERCENT AUTO 2 % (0-6); Hematocrit 29.5 % (37.0-53.0); Hemoglobin 10.1 g/dL (13.5-17.5); IMMATURE GRAN ABSOLUTE AUTO 0.09 K/mm3 (0.00-0.10); IMMATURE GRAN PERCENT AUTO 1 % (0-1); LYMPHOCYTES ABSOLUTE AUTO 1.55 K/mm3 (0.84-5.20); LYMPHOCYTES PERCENT AUTO 20 % (21-46); MONOCYTES ABSOLUTE AUTO 0.55 K/mm3 (0.16-1.47); MONOCYTES PERCENT AUTO 7 % (4-13); Mean Corpuscular HGB 31.5 pg (26.0-34.0); Mean Corpuscular HGB Conc 34.2 g/dL (31.5-36.5); Mean Corpuscular Volume 92 fL (80-100); Mean Platelet Volume 12.4 fL (9.1-12.4); NEUTROPHILS ABSOLUTE AUTO 5.33 K/mm3 (1.96-9.15); NEUTROPHILS PERCENT AUTO 69 % (41-73); NRBC ABSOLUTE 0.04 K/mm3 (0.00-0.02); NRBC Auto 0.5 /100 WBC (0.0-0.2); Platelet Count 126 K/mm3 (150-400); RDW Coefficient Variation 20.1 % (11.7-14.2); Red Blood Cell Count 3.21 M/mm3 (4.30-5.90)
[2020-09-19 05:38] LABS: Alanine Aminotransfer (ALT/SGP 35 U/L (12-78); Albumin, Blood 1.7 g/dL (3.4-5.0); Albumin/Globulin Ratio 0.4 (0.8-1.8); Alk Phos 348 U/L (50-136); Anion Gap 7 mmol/L (6-16); Aspartate Aminotrans (AST/SGOT 108 U/L (12-37); Bilirubin, Total 7.5 mg/dL (0.1-1.0); Blood Urea Nitrogen 15 mg/dL (8-24); CO2, Blood 29 mmol/L (21-32); Calcium, Blood 8.1 mg/dL (8.5-10.1); Chloride, Blood 98 mmol/L (98-108); Creatinine, Blood 1.07 mg/dL (0.60-1.20); Globulin, Blood 4.7 g/dL (2.2-4.0); Glomerular Filtration Rate >60 (60-); Glucose, Blood 98 mg/dL (70-99); Potassium, Blood 3.4 mmol/L (3.5-5.5); Sodium, Blood 134 mmol/L (136-145); Total Protein, Blood 6.4 g/dL (6.4-8.2)
--- NOTE | 2020-09-19 18:29 | NUR ---
Shift Summary A/Ox2 to self and hospital/city. Up to chair for lunch with 2 max/gait/[id number]. Daughter at bedside. PO intake is minimal. Morning dose of Lactulose held d/t patient having multiple stools during the night. Medicated for pain x 2 per EMAR with moderate effect. Appears somewhat drowsy this evening. Bed alarm on, bed in lowest position, call light close by. A little tachycardic @ HR 101, otherwise VSS. Will cont. to monitor and report to oncoming RN.
--- NOTE | 2020-09-19 18:32 | NUR ---
09/19/[address] Guillermo, may be medically stable for discharge . PT working with patient moderate assist today, stands for 30 seconds. still recommending SNF. Family prefers he return home with time piece repairer care. Will contact daughter tomorrow to discuss possible discharge for .
--- NOTE | 2020-09-19 19:25 | NUR ---
AWAKE, WATCHING TV. DENIED PAIN OR LOSS OF FEELING. CALL LIGHT IN REACH
--- NOTE | 2020-09-20 04:48 | NUR ---
SHIFT SUMMARY HAS BEEN RESTING QUIETLY WITH EFW INTERRUPTIONS, SUCH WHEN AWAKENED FOR CHANGING FOR INCONTINENCE. RESTING QUIETLY AT THIS TIME.
--- NOTE | 2020-09-20 09:28 | NUR ---
PATIENT AGREED FOR THIS STUDENT RN TO PROVIDE CARE
--- NOTE | 2020-09-20 16:40 | NUR ---
SHIFT SUMMARY- PT A/O TO PERSON AND PLACE. PT NOTED TO BE MORE ALERT AND AWAKE AND CONVERSATING THIS AM THAN THIS AFTERNOON. PT FLAT AND WITHDRAWN, SOMETIMES DOES NOT RESPOND WHEN SPOKEN TO. PT MEDICATED X1 FOR CHRONIC BACK AND SHOULDER PAIN. LS CLEAR, ON RA. JAUNDICE NOTED TO SKIN. PT UP TO CHAIR WITH PHYSICAL THERAPY, 2 ASSIST. PT INCONT OF DARK JUANI URINE. NO STOOLS TODAY, LACTULOSE GIVEN. DAUGHTER AT BEDSIDE AND SPOKE WITH DR MARS VIA PHONE FOR UPDATE. NO OTHER ACUTE CHANGES THIS SHIFT.
--- NOTE | 2020-09-20 16:48 | NUR ---
09/20/20 spoke with Lenore and Layla today, family, concerns for his mental status, mininmal assist for feeding, but not eating or drinking much. Dr Carranzaani to order mental evaluation. Discussed snf is [facility] since [facility] refused, Agreed to let us look for one. Layla discussed memory care, will have to wait for mental eval, ETA discharge per Dr couple days. Remains heavy 2 person assist, would need lift for home.
--- NOTE | 2020-09-21 02:23 | NUR ---
PROVIDER CONSULT: FAXED FACE SHEET TO ER, DR JEFF MADRID ([facility]).
--- NOTE | 2020-09-21 04:28 | NUR ---
SHIFT SUMMARY PATIENT HAD NO ACUTE CHANGES OBSERVED. AXOX 2 WITH FLAT AFFECT AND SLOW TO RESPOND. TAKES MEDICATION WHOLE WITH WATER. PIV REMAINS INTACT. VSS/AFEBRILE. DENIES PAIN, SOB, AND N/V. JAUNDICE NOTED TO SKIN. IN CHAIR AT SHIFT CHANGE AND SIT TO STAND LIFT BACK INTO BED. CALL LIGHT IN REACH. BED IN LOWEST POSITION. WILL CONTINUE TO MONITOR UNTIL DAY SHIFT NURSE ASSUMES CARE.
[2020-09-21 05:31] LABS: BASOPHILS PERCENT AUTO 1 % (0-2); EOSINOPHILS ABSOLUTE AUTO 0.12 K/mm3 (0.00-0.68); EOSINOPHILS PERCENT AUTO 1 % (0-6); Hematocrit 33.1 % (37.0-53.0); IMMATURE GRAN ABSOLUTE AUTO 0.26 K/mm3 (0.00-0.10); IMMATURE GRAN PERCENT AUTO 2 % (0-1); LYMPHOCYTES ABSOLUTE AUTO 2.43 K/mm3 (0.84-5.20); LYMPHOCYTES PERCENT AUTO 21 % (21-46); MONOCYTES ABSOLUTE AUTO 0.79 K/mm3 (0.16-1.47); MONOCYTES PERCENT AUTO 7 % (4-13); Mean Corpuscular HGB 31.9 pg (26.0-34.0); Mean Corpuscular HGB Conc 33.2 g/dL (31.5-36.5); Mean Corpuscular Volume 96 fL (80-100); Mean Platelet Volume 12.7 fL (9.1-12.4); NEUTROPHILS ABSOLUTE AUTO 7.95 K/mm3 (1.96-9.15); NEUTROPHILS PERCENT AUTO 68 % (41-73); NRBC ABSOLUTE 0.07 K/mm3 (0.00-0.02); NRBC Auto 0.6 /100 WBC (0.0-0.2); Platelet Count 168 K/mm3 (150-400); RDW Coefficient Variation 20.8 % (11.7-14.2); RDW Standard Deviation 69.3 fL (35.1-46.3); Red Blood Cell Count 3.45 M/mm3 (4.30-5.90); White Blood Cell Count 11.65 K/mm3 (4.00-11.30)
[2020-09-21 05:50] LABS: Alanine Aminotransfer (ALT/SGP 36 U/L (12-78); Albumin, Blood 1.8 g/dL (3.4-5.0); Albumin/Globulin Ratio 0.3 (0.8-1.8); Alk Phos 377 U/L (50-136); Anion Gap 8 mmol/L (6-16); Aspartate Aminotrans (AST/SGOT 132 U/L (12-37); Bilirubin, Total 6.7 mg/dL (0.1-1.0); Blood Urea Nitrogen 14 mg/dL (8-24); Bun/Creatinine Ratio 11.1 (12.0-20.0); CO2, Blood 30 mmol/L (21-32); Calcium, Blood 8.5 mg/dL (8.5-10.1); Chloride, Blood 97 mmol/L (98-108); Creatinine, Blood 1.26 mg/dL (0.60-1.20); Globulin, Blood 5.2 g/dL (2.2-4.0); Glomerular Filtration Rate >60 (60-); Glucose, Blood 94 mg/dL (70-99); Potassium, Blood 3.6 mmol/L (3.5-5.5); Sodium, Blood 135 mmol/L (136-145)
--- NOTE | 2020-09-21 16:45 | NUR ---
PT IS ALERT BUT VERY SLOW TO RESPOND. HE HAS A DIFFICULT TIME PARTICIPATING IN ADL'S REQUIRING CONSTANT REMINDERS TO ROLL AND HELP WITH THE MOVEMENT. ACCORDING TO REPORT FROM WORD PROCESSOR AND ASSISTANT CHIEF TRAIN DISPATCHER WHO HAD PT YESTERDAY, PT HAS DECLINDED IN MENTATION AND PHYSICAL ABILITY. PT HAS HAD MINIMAL FOOD INTAKE AND WHEN QUESTIONED HE STATES HE ISNT HUNGRY. DAUGHTER AT BEDSIDE AND AFFIRMED THAT THIS IS NOT HIS USUAL BEHAVIOR. CALL LIGHT WITHIN REACH.
--- NOTE | 2020-09-21 17:15 | NUR ---
09/21/20 Yolanda MARSH has [facility] snf and [facility] snf reviewing for placment. met with Daughter Erik today, discussed that he was a 3 per roll in bed today, she does not feel she can care for him at home and is open to snf. She is applying for caregiver assistance with [employer] currently. Chelsea does feel that when he is a one person assist that she could meet his care needs at home. Dr Guillermo agree's that SNF is appropriate care as long as patient agree's Per DR Guillermo, Dr Win assessed Josue today, can expect feedback after another meeting tomorrow morning.
--- NOTE | 2020-09-22 04:09 | NUR ---
SHIFT SUMMARY ADMITTED FOR HYPONATREMIA. FULL CODE. PLAN IS FOR PLACEMENT. PT IS CONFUSED AT TIMES. HE IS GROWING PROGRESSIVELY WEAKER ACCORDING TO REPORTS. HE IS INCONTINENT. HX; ETOH, ALCOHOLIC CIRRHOSIS, ESOPHAGEAL VARICES. HE IS SLOW TO RESPOND.
[2020-09-22 08:10] LABS: HBSAG SCREEN Negative (Negative); HEP A AB, IGM Negative (Negative); HEP B CORE AB, IGM Negative (Negative); HEP C VIRUS AB 0.1 (0.0-0.9)
--- NOTE | 2020-09-22 18:05 | NUR ---
09/22/[address] Guillermo, medically stable for discharge to SNF. Has not been accepted by any snfs as of today. Per Cony Guerrero [facility] and [facility] refused admittance due to discharge plan. Patient is being reviewed and packets have been faxed to the following facilities: [facility]
--- NOTE | 2020-09-22 19:37 | NUR ---
SHIFT SUMMARY PT A/O X2 AND VERY CONFUSED. PT IS INCONT OF BOWEL AND BLADDER. PT IS VERY JAUNDICED. GIVEN ENULOSE X3 TODAY AND HAS HAD ONE BOWEL MOVEMENT DURING THE SHIFT. 2 PERSON TO GET UP WITH A SIT TO STAND. PLAN IS TO DC TO MEMORY CARE/SNF. VSS; REPORT GIVEN TO DERRICK BUILDER RN.
--- NOTE | 2020-09-23 05:34 | NUR ---
SHIFT SUMMARY ASSUMED CARE OF PT AT 1900. PT IS A/OX1. HEART SOUNDS REGULAR, LUNG SOUNDS DIMNISHED. PT ABD IS DISTENDED AND FIRM, PT HAS A DISTENDED LUMP ON ABD WHEN HE TURNS. SKIN IS JAUNDICED WITH SCATTERED BRUISING. PT PERIARE IS RED AND PT HAS A RASH ON HIS FACE. PT HAS HAD LOOSE STOOLS T/O THE NIGHT. PT URINE IS VERY DARK JUANI. PT WAS INCONTIENT T/O THE NIGHT. PT HAS HARD TIME FOLLOWING COMMANDS. CALL LIGHT IN REACH, BED IN LOWEST POSTION.
[2020-09-23 12:09] LABS: Alanine Aminotransfer (ALT/SGP 36 U/L (12-78); Albumin, Blood 1.8 g/dL (3.4-5.0); Albumin/Globulin Ratio 0.3 (0.8-1.8); Alk Phos 362 U/L (50-136); Anion Gap 8 mmol/L (6-16); Aspartate Aminotrans (AST/SGOT 138 U/L (12-37); Bilirubin, Total 5.7 mg/dL (0.1-1.0); Blood Urea Nitrogen 13 mg/dL (8-24); Bun/Creatinine Ratio 11.4 (12.0-20.0); CO2, Blood 26 mmol/L (21-32); Calcium, Blood 8.5 mg/dL (8.5-10.1); Chloride, Blood 99 mmol/L (98-108); Creatinine, Blood 1.14 mg/dL (0.60-1.20); Globulin, Blood 5.4 g/dL (2.2-4.0); Glomerular Filtration Rate >60 (60-); Glucose, Blood 153 mg/dL (70-99); Potassium, Blood 3.7 mmol/L (3.5-5.5); Sodium, Blood 133 mmol/L (136-145); Total Protein, Blood 7.2 g/dL (6.4-8.2)
--- NOTE | 2020-09-23 18:24 | NUR ---
SHIFT SUMMARY NO ACUTE CHANGES THIS SHIFT. PATIENT HAS HAD 4 BMS THIS SHIFT. HELD LACULOSE PER [facility] HOSPITALIST INSTRUCTION TO TITRATE FOR 3 BMS PER DAY. HE WAS ALERT, ABLE TO STATE HIS NAME AND DATE OF . HE ALSO KNEW HE WAS IN [place]. STOOD WITH 2 PERSON ASSIST, GAIT BELT AND A WALKER. HE IS AWAITING SNF PLACEMENT FOR PHYSICAL THERAPY REHAB. PATIENT IS UNABLE TO MAKE NEEDS KNOWN. BED LOW AND LOCKED, CALL LIGHT WITHIN REACH, BED ALARM SET. WILL CONT TO MONITOR UNTIL CHANGE OF SHIFT.
--- NOTE | 2020-09-24 04:30 | NUR ---
SHIFT SUMMARY PT AWAKE MUCH OF THE NIGHT THIS EVENING. COMPLAINED OF GENERALIZED ABD DISCOMFORT. MEDICATED X 1 W/ ULTRAM 50 MG. PT REPORTED RELIEF. PT REMAINED IN BED THROUGHOUT THE NIGHT, MOSTLY LYING AWAKE WATCHING TV. INCONTINENT OF URINE AND STOOL. ONE LOOSE STOOL THIS EVENING. HS LACTULOSE HELD PT HAD 4 BM'S ON DAY SHIFT AND ONE TONIGHT. URINE IS ORANGE. PT HAS DIFFICULTY FOLLOWING DIRECTIONS AT TIMES. EATING AND DRINKING WELL. VITAL SIGNS STABLE. PT CONTINUES TO AWAIT PLACEMENT. WILL CONTINUE TO MONITOR AND REPORT TO DAY RN.
--- NOTE | 2020-09-24 17:14 | NUR ---
SHIFT SUMMARY NO ACUTE CHANGES THIS SHIFT. PATIENT WAS MORE ALERT THIS AM THAN YESTERDAY. HE WAS ABLE TO TRANSFER FROM THE BED TO THE RECLINER WITH TWO PERSON ASSIST W/ GAIT BELT AND WALKER. HE IS ALERT, CALM AND COOPERATIVE WITH CARE. MEDICATED FOR PAIN X1 THIS SHIFT WITH TRAMADOL. PATIENT AWAITS SNF PLACEMENT OUT OF AREA. PATIENT UP IN CHAIR FOR DINNER, CHAIR ALARM SET, CALL LIGHT WITHIN REACH. WILL CONT TO MONITOR AND HANF OFF TO NEXT SHIFT.
--- NOTE | 2020-09-25 04:40 | NUR ---
SHIFT SUMMARY NO ACUTE CHANGES THIS SHIFT. PT CONTINUES TO BE PLEASANTLY CONFUSED. JAUNDICED WITH MOD DISTENDED ABD. LACUTLOSE GIVEN THIS EVENING. PT HAD ONE BM THIS EVENING. TOTALLING 2 BOWEL MOVEMENTS FOR THE DAY. STOOL IS LOOSE. URINE ORANGE. STRONG SMELLING. PT INCONTINENT. ATTENDS IN PLACE. JOSHUA AREA RED, BARRIER CREAM APPLIED. PT TACHYCARDIC AND TACYPENIC AT TIMES WHILE AWAKE. PT CONTINUES TO AWAIT PLACEMENT.
--- NOTE | 2020-09-25 17:08 | NUR ---
PT AOX2 AND COOPERATIVE. PT HAS BEEN ABLE TO BE UP FOR HIS MEALS AND HAS BEEN EATING WELL TODAY. PT HAS BEEN MORE HELPFUL WITH HIS CHANGES WELL AND IT HAS ONLY TAKEN ONE PERSON TO CLEAN HIM UP. PT IS SITTING IN ROOM WATCHING TV. PT TREATED FOR BACK PAIN PER EMAR. WILL CONTINUE TO MONITOR.
--- NOTE | 2020-09-25 17:25 | NUR ---
09/25/20 Met with Son Bradley in patient room today, . Has not applied for medicaid yet. I discussed that we are not able to get him into a SNF until he has a adequte discharge plan. Daughter agrees to take him home as a 1 person assist, need Medicaid in place to support caregiving 24 hours aday if he does not improve to 1 person assist. IT IS IMPERATIVE THAT MEDICAID BE APPLIED FOR ON FRIDAY. Reminded him that i have requested this on several occasions with his sister and Moira. He promised to complete this on Friday. I gave him the telephone number to [employer]. PT OT still recommend SNF for rehab. Patient is medically stable, discharge delay due to need for SNF. cp
--- NOTE | 2020-09-26 05:00 | NUR ---
SHIFT SUMMARY ALERT, ABLE TO MAKE NEEDS KNOWN. [place] AND SLOW TO RESPOND. DOES NOT FOLLOW DIRECTIONS VERY WELL. NO C/O PAIN/DISCOMFORT. APPEARED TO REST MINIMALLY T/O SHIFT. NO ACUTE CHANGES NOTED OVERNIGHT. CONTINUES TO AWAIT SAFE DISCHARGE TO SNF OR REHAB. BED REMAINED IN LOWEST POSITION; ALARM ON. CALL LIGHT AND BELONGINGS WITHIN REACH. DOES NOT USE CALL SYSTEM. REPORT TO ONCOMING RN.
[2020-09-26 05:12] LABS: BASOPHILS ABSOLUTE AUTO 0.11 K/mm3 (0.00-0.23); BASOPHILS PERCENT AUTO 1 % (0-2); EOSINOPHILS ABSOLUTE AUTO 0.19 K/mm3 (0.00-0.68); EOSINOPHILS PERCENT AUTO 1 % (0-6); Hematocrit 32.4 % (37.0-53.0); Hemoglobin 10.6 g/dL (13.5-17.5); IMMATURE GRAN ABSOLUTE AUTO 0.19 K/mm3 (0.00-0.10); IMMATURE GRAN PERCENT AUTO 1 % (0-1); LYMPHOCYTES ABSOLUTE AUTO 2.35 K/mm3 (0.84-5.20); LYMPHOCYTES PERCENT AUTO 16 % (21-46); MONOCYTES ABSOLUTE AUTO 0.89 K/mm3 (0.16-1.47); MONOCYTES PERCENT AUTO 6 % (4-13); Mean Corpuscular HGB 32.7 pg (26.0-34.0); Mean Corpuscular HGB Conc 32.7 g/dL (31.5-36.5); Mean Corpuscular Volume 100 fL (80-100); Mean Platelet Volume 12.3 fL (9.1-12.4); NEUTROPHILS ABSOLUTE AUTO 11.22 K/mm3 (1.96-9.15); NEUTROPHILS PERCENT AUTO 75 % (41-73); NRBC ABSOLUTE 0.05 K/mm3 (0.00-0.02); NRBC Auto 0.3 /100 WBC (0.0-0.2); Platelet Count 174 K/mm3 (150-400); RDW Coefficient Variation 21.4 % (11.7-14.2); RDW Standard Deviation 76.2 fL (35.1-46.3); Red Blood Cell Count 3.24 M/mm3 (4.30-5.90); White Blood Cell Count 14.95 K/mm3 (4.00-11.30)
[2020-09-26 05:37] LABS: Alanine Aminotransfer (ALT/SGP 38 U/L (12-78); Albumin, Blood 1.6 g/dL (3.4-5.0); Albumin/Globulin Ratio 0.3 (0.8-1.8); Alk Phos 321 U/L (50-136); Anion Gap 8 mmol/L (6-16); Aspartate Aminotrans (AST/SGOT 145 U/L (12-37); Bilirubin, Total 4.6 mg/dL (0.1-1.0); Blood Urea Nitrogen 15 mg/dL (8-24); Bun/Creatinine Ratio 12.7 (12.0-20.0); CO2, Blood 28 mmol/L (21-32); Calcium, Blood 8.4 mg/dL (8.5-10.1); Chloride, Blood 94 mmol/L (98-108); Creatinine, Blood 1.18 mg/dL (0.60-1.20); Globulin, Blood 5.2 g/dL (2.2-4.0); Glomerular Filtration Rate >60 (60-); Glucose, Blood 89 mg/dL (70-99); Phosphorus, Blood 3.6 mg/dL (2.5-4.9); Potassium, Blood 4.1 mmol/L (3.5-5.5); Sodium, Blood 130 mmol/L (136-145); Total Protein, Blood 6.8 g/dL (6.4-8.2)
--- NOTE | 2020-09-26 10:49 | NUR ---
09/26/19 s/w Son Bradley and Nicole Johnson, [facility] director. JOSUE WILL NOT QUALIFY FOR MEDICAID CAREGIVERS OR JAIL PLACEMENT. He is under the age of 65 and is not deemeed legally disabled. Discussed hiring a distribution agent to help with disability process. Possible help throuh OHP? Son would need to contact Health plan. Josue needs to improve to a level that can he can be cared for at home, family needs to get together to discuss a careplan, hiring caregivers for him. Hospital can continue to try to place him in a snf. So far he has been denied by all snfs that have been contacted. I will continue to follow for discharge planning. cp
--- NOTE | 2020-09-26 17:20 | NUR ---
PT MAINTAINING NO CHANGES TODAY. PT AOX2 AND HAS BEEN COOPERATIVE OF CARE. PT HAS CONFUSION, BUT TRIES TO DO WHAT IS BEING ASKED ALTHOUGH HE NEEDS CONSTANT REDIRECTION AND REMINDERS HE FORGETS WHAT HE IS DOING. PT HAS BEEN UP IN CHAIR AND IS A HEAVY TWO PERSON. SOMETIMES HE IS BETTER TODAY HE IS NOT HELPING MUCH WITH TRANFERING. BED ALARM IS IN PLACE AND PT HAS CALL LIGHT WILL CONTINUE TO MONITOR.
--- NOTE | 2020-09-26 18:53 | NUR ---
09/26/20 UPDATE &CORRECTION TO PREVIOUS NOTE DATED 09/26/20 Conversation with Kendal at [facility] - [phone]. Bradley needs to apply for Josue, "SERVICES, CAREGIVER, JAIL CARE PLACEMENT" Age or Social security disability will not be a qualifying factor for these services. s/w Bradley, needs to complete dhs form for consent, fax to dhs office he will then be able to apply by telephone for Kevin. Kevin will have to meet guidelines to be eligable for assistance. cp
--- NOTE | 2020-09-26 19:10 | NUR ---
ASSUMED CARE RECEIVED REPORT FROM ANKITA ROLDAN. PT RESTING COMFORTABLY, NO S/S ACUTE DISTRESS NOTED. DENIES NEEDS. CALL LIGHT, POSSESSIONS IN REACH, BED IN LOW POSITION WITH ALARMS ON. CONTINUE TO MONITOR.
--- NOTE | 2020-09-27 04:53 | NUR ---
SHIFT SUMMARY PT ASLEEP, NO S/S ACUTE DISTRESS NOTED. VS REVIEWED, WNL. NO ACUTE CHANGES IN CONDITION NOTED T/O NIGHT. REPOSITIONED TOLERATED. PAIN MANAGED WITH MEDS PER EMAR, DENIES PAIN AT THIS TIME. PT REMAINS CONFUSED, FORGETFUL, REQUIRING CONSTANT RE-DIRECTION AND CUEING TO PARTICIPATE IN CARES. DOES NOT USE CALL LIGHT APPROPRIATELY. ABLE TO COMMUNICATE NEEDS USING SIMPLE WORDS/PHRASES. NO ACUTE NEEDS ASSESSED AT THIS TIME. POSSESSIONS IN REACH, BED IN LOW POSITION WITH ALARMS ON. CONTINUE TO MONITOR UNTIL REPORT GIVEN TO DAY RN.
--- NOTE | 2020-09-27 12:16 | NUR ---
SPOKE TO DR ANDREI GALAVIZ. OKAY GIVE INDERAL. NEW PARAMETERS: HOLD IF <90 SBP. LACTULOSE BID.
--- NOTE | 2020-09-27 18:34 | NUR ---
PT PLEASANT TODAY. NO C/O PAIN, PRESENTS WEAKER PER SON WHO WAS IN TO SEE. PT NEEDS LIFT TO GET TO CHAIR. NO ETOH W/D SYMPTOMS NOTED. PT WA;S IN TO SEE AND WORKED WITH HIM WELL. NO OTHER CONCERNS AT THIS TIME. SPOKE TO DR FORBES TODAY ABOUT PARAMETERS FOR BP MEDS. BED IN LOW POSITION, CALL LITE IN REACH, BED ALARM ON FOR SAFETY
--- NOTE | 2020-09-28 06:24 | NUR ---
Patient slept off and on overnight. Two mushy stools in briefs. Took pills 2 at a time in applesauce, and was a good sport taking his lactulose also. Patient's skin looks good over sacrum and gluteal fold, but quite red and peeling lower area of scrotum and medial upper thighs. Due to frequent incontinence, barrier cream applied to protect.
--- NOTE | 2020-09-28 18:06 | NUR ---
SHIFT SUMMARY PT A/O TO SELF ONLY THIS SHIFT AND VERY LETHARGIC. PT IS VERY CHALLENGING TO REPOSITION IN BED AND VERY WEAK. WORKED WITH P.T./O.T. THIS SHIFT. TWO MUSHY STOOLS IN HIS ATTENDS AND ON LACTALOSE. PT IS ABLE TO TAKE PILLS WHOLE IN APPLE SAUCE BUT HAS A HARD TIME STAYING ALERT LONG ENOUGH TO DRINK ALL OF LIQUID MEDICATION. SKIN RED AND PEELING ON THE INNER THIGHS AND SCROTAL AREA DUE TO FREQUENT INCONTINENCE. BARRIER CREAM APPLIED TO PROTECT SKIN. VSS; WILL REPORT TO GRAIN DRIER RN.
--- NOTE | 2020-09-28 18:11 | NUR ---
09/28/20 s/w Dixie mcm today about my faxing information release to [facility]. Bradley had commit to calling to apply for services today. Medically stable for discharge, Dixie assisting in SNF placement out of town. cp 09/27/20 faxed to [employer] information release for son Bradley to help him apply.
--- NOTE | 2020-09-29 07:57 | NUR ---
GENERAL OFFICE ASSISTANT SUMMARY No change from previous night. Patient was awake about one half the night rolling around and fidgeting in his bed. 1 incont stool and 2 large incont voids. Josue remains non verbal (at least with this RN last night) and unable to communicate his needs.
--- NOTE | 2020-09-29 19:15 | NUR ---
ASSUMED CARE RECEIVED REPORT FROM ANKITA VALE. PT RESTING IN BED, NO S/S ACUTE DISTRESS NOTED. NO ACUTE NEEDS OR DISTRESS NOTED AT THIS TIME. CALL LIGHT, POSSESSIONS IN REACH, BED IN LOW POSITION WITH ALARMS ON. CONTINUE TO MONITOR.
--- NOTE | 2020-09-29 19:40 | NUR ---
SHIFT SUMMARY PT AXO X0-1. PT MAKING NONSENSICAL STATEMENTS AT TIMES. NO ACUTE CHANGES THIS SHIFT. PT REMAINS INCONTINENT OF URINE, LARGE AMOUNTS, ORANGE/RUST IN COLOR. PT DIFFICULT TO TURN. CHANGES PRN AND FREQUENTLY. VSS. BED IN LOW POSITION, CALL LIGHT WITHIN REACH, BED ALARM ON. PT TAKES MEDICATIONS ONE AT A TIME IN APPLESAUCE.
[2020-09-30 05:26] LABS: BASOPHILS ABSOLUTE AUTO 0.08 K/mm3 (0.00-0.23); BASOPHILS PERCENT AUTO 1 % (0-2); EOSINOPHILS ABSOLUTE AUTO 0.13 K/mm3 (0.00-0.68); EOSINOPHILS PERCENT AUTO 1 % (0-6); Hematocrit 35.8 % (37.0-53.0); Hemoglobin 11.3 g/dL (13.5-17.5); IMMATURE GRAN ABSOLUTE AUTO 0.13 K/mm3 (0.00-0.10); IMMATURE GRAN PERCENT AUTO 1 % (0-1); LYMPHOCYTES ABSOLUTE AUTO 2.33 K/mm3 (0.84-5.20); LYMPHOCYTES PERCENT AUTO 17 % (21-46); MONOCYTES ABSOLUTE AUTO 1.09 K/mm3 (0.16-1.47); MONOCYTES PERCENT AUTO 8 % (4-13); Mean Corpuscular HGB 32.6 pg (26.0-34.0); Mean Corpuscular HGB Conc 31.6 g/dL (31.5-36.5); Mean Corpuscular Volume 103 fL (80-100); NEUTROPHILS ABSOLUTE AUTO 10.17 K/mm3 (1.96-9.15); NEUTROPHILS PERCENT AUTO 73 % (41-73); NRBC ABSOLUTE 0.02 K/mm3 (0.00-0.02); NRBC Auto 0.1 /100 WBC (0.0-0.2); Platelet Count 248 K/mm3 (150-400); RDW Coefficient Variation 21.6 % (11.7-14.2); RDW Standard Deviation 81.7 fL (35.1-46.3); Red Blood Cell Count 3.47 M/mm3 (4.30-5.90); White Blood Cell Count 13.93 K/mm3 (4.00-11.30)
[2020-09-30 06:07] LABS: Albumin, Blood 1.7 g/dL (3.4-5.0); Albumin/Globulin Ratio 0.3 (0.8-1.8); Bilirubin, Total 3.8 mg/dL (0.1-1.0); Bun/Creatinine Ratio 22.3 (12.0-20.0); Calcium, Blood 8.6 mg/dL (8.5-10.1); Creatinine, Blood 1.39 mg/dL (0.60-1.20); Globulin, Blood 5.8 g/dL (2.2-4.0); Thyroid Stimulating Hormone 11.4 uIU/mL (0.360-4.800); Total Protein, Blood 7.5 g/dL (6.4-8.2)
--- NOTE | 2020-09-30 06:25 | NUR ---
SHIFT SUMMARY PT RESTING, NO ACUTE DISTRESS OR NEEDS NOTED. VS REVIEWED, WNL. PT HAS HAD MULTIPLE LOOSE BM'S THIS SHIFT, NO C/O ABD DISCOMFORT. INCOMPREHENSIBLE SPEECH ONGOING, PT APPEARS RESISTANT TO CARES. NOTED TO BE REACHING INTO ATTENDS AT TIMES, MINIMALLY RESPONSIVE TO VERBAL RE-DIRECTION. APPEARS COMFORTABLE AT THIS TIME. CALL LIGHT, POSSESSIONS IN REACH, BED IN LOW POSITION WITH ALARMS ON. CONTINUE TO MONITOR, REPORT OFF TO DAY RN.
--- NOTE | 2020-09-30 18:12 | NUR ---
NO ACUTE CHANGES NOTED THIS SHIFT, WILL CONTINUE TO MONITOR AND REPORT TO ONCOMING RN
--- NOTE | 2020-09-30 19:05 | NUR ---
ASSUMED CARE RECEIVED REPORT FROM ANKITA CHIN. PT SITTING IN RECLINER, NO ACUTE DISTRESS OR NEEDS NOTED. CALL LIGHT AND POSSESSIONS IN REACH, CHAIR ALARM ON. CONTINUE TO MONITOR.
[2020-10-01 05:20] LABS: BASOPHILS ABSOLUTE AUTO 0.07 K/mm3 (0.00-0.23); BASOPHILS PERCENT AUTO 1 % (0-2); EOSINOPHILS ABSOLUTE AUTO 0.12 K/mm3 (0.00-0.68); EOSINOPHILS PERCENT AUTO 1 % (0-6); Hematocrit 34.3 % (37.0-53.0); IMMATURE GRAN PERCENT AUTO 1 % (0-1); LYMPHOCYTES ABSOLUTE AUTO 2.21 K/mm3 (0.84-5.20); LYMPHOCYTES PERCENT AUTO 18 % (21-46); MONOCYTES ABSOLUTE AUTO 1.04 K/mm3 (0.16-1.47); MONOCYTES PERCENT AUTO 8 % (4-13); Mean Corpuscular HGB 33.3 pg (26.0-34.0); Mean Corpuscular HGB Conc 32.1 g/dL (31.5-36.5); Mean Corpuscular Volume 104 fL (80-100); Mean Platelet Volume 12.1 fL (9.1-12.4); NEUTROPHILS PERCENT AUTO 72 % (41-73); NRBC ABSOLUTE 0.02 K/mm3 (0.00-0.02); NRBC Auto 0.2 /100 WBC (0.0-0.2); Platelet Count 235 K/mm3 (150-400); RDW Coefficient Variation 21.2 % (11.7-14.2); RDW Standard Deviation 79.6 fL (35.1-46.3); White Blood Cell Count 12.54 K/mm3 (4.00-11.30)
[2020-10-01 05:33] LABS: Bun/Creatinine Ratio 26.1 (12.0-20.0); Creatinine, Blood 1.61 mg/dL (0.60-1.20); Magnesium, Blood 2.5 mg/dL (1.6-2.4); Potassium, Blood 4.3 mmol/L (3.5-5.5)
--- NOTE | 2020-10-01 06:31 | NUR ---
SHIFT SUMMARY PT ASLEEP, NO S/S ACUTE DISTRESS. A&O TO SELF. NO ACUTE CHANGES IN CONDITION OVERNIGHT, VS REVIEWED, WNL. PT ATTEMPTED TO MOVE LEGS OVER THE SIDERAIL, RE-DIRECTABLE. PT ABLE TO ANSWER SIMPLE QUESTIONS, STATE NAME/. OCCASIONALLY MUMBLES NON-SENSICALLY. ASSISTED COMMERCIAL RELATIONSHIP MANAGER TO CHANGE ATTENDS. CALL LIGHT, POSSESSIONS IN REACH, BED IN LOW POSITION WITH ALARMS ON. CONTINUE TO MONITOR, REPORT TO ONCOMING RN.
--- NOTE | 2020-10-01 19:35 | NUR ---
ASSUMED CARE RECEIVED BEDSIDE REPORT FROM ANKITA VALENTINO; PT ALERT TO SELF; DOES NOT ANSWER ORIENTING QUESTIONS; VSS; WATCHING TV W/ NO DISTRESS NOTED; CALL LIGHT IN REACH; BED IN LOWEST POSITION; BED ALARM ON FOR SAFETY.
[2020-10-02 06:23] LABS: Creatinine, Blood 1.32 mg/dL (0.60-1.20); Potassium, Blood 4.4 mmol/L (3.5-5.5)
--- NOTE | 2020-10-02 06:23 | NUR ---
SHIFT SUMMARY PT A&O TO SELF; ABLE TO ANSWER IN SHORT SENTENCES; VSS; DENIES CHEST PAIN; O2 SATS >93 ON RA; PT ROLLS ABOUT IN BED AND REPOSITIONS FREQUENTLY; PULLS ATTENDS OFF AT TIMES; REDNESS IN GROIN AND CHAFFING NOTED; POWDER AND BARRIER CREAM ALTERNATED; MEDS ADMINISTERED IN APPLESAUCE W/ NO ISSUE; NO DISTRESS NOTED; CALL LIGHT IN REACH; BED IN LOWEST POSITION; BED ALARM ON FOR SAFETY; WILL CONTINUE TO MONITOR CLOSELY UNTIL HAND OFF TO DAY SHIFT RN.
--- NOTE | 2020-10-02 16:38 | NUR ---
10/02/20 s/w Son Bradley, he says that [facility] did not receive the email I sent last week for information release.. I had Pattie email again today. [facility] This is for Bradley to apply for services .
[2020-10-03 05:42] LABS: Bun/Creatinine Ratio 27.2 (12.0-20.0); Calcium, Blood 8.9 mg/dL (8.5-10.1); Creatinine, Blood 1.36 mg/dL (0.60-1.20); Potassium, Blood 4.5 mmol/L (3.5-5.5)
--- NOTE | 2020-10-03 06:17 | NUR ---
SHIFT SUMMARY NO ACUTE CHANGES THIS SHIFT, SLEPT T/O THE NIGHT TURNS SELF WELL IN BED, SLEEPING AT THIS TIME, CALL LIGHT IN REACH, BED ALARM ACTIVE, WILL CONT TO MONITOR UNTIL REPORT GIVEN T0 DAY RN.
--- NOTE | 2020-10-03 11:21 | NUR ---
HE WAS FED BREAKFAST. HE WAS ABLE TO HOLD HIS DRINK CONTAINERS AND DRINK HIMSELF BUT DID NOT USE ANY UTENSILS. HE REMAINS VERY CONFUSED, UNABLE TO FOLLOW MOST DIRECTIONS. HE HAS BEEN COOPERATIVE. HE HAS BEEN CHANGED X2, ONCE FOR BOTH URINE AND STOOL AND ONCE FOR URINE ALONE. HIS URINE IS ORANGE/JUANI. BED ALARM ON. WILL GET HIM UP THIS SHIFT WITH THE [facility] LIFT.
--- NOTE | 2020-10-03 17:41 | NUR ---
HE REMAINS VERY CONFUSED, UNABLE TO FOLLOW MOST INSTRUCTIONS AND CANNOT FOLLOW ANY CONVERSATION. HE TAKES HIS MEDICATIONS WELL, CRUSHED IN APPLESAUCE. HE HAS HAD MULTIPLE SMEARS OF STOOL BUT MAYBE ONLY 1 DOCUMENTED BM. HE HAS A PROBABLE YEAST RASH IN HIS JOSHUA AREA. I JUST RECEIVED AN ORDER FOR THE MICONAZOLE POWDER. NO CHANGES IN HIS NEURO STATUS. DC PLAN IS PLACEMENT.
--- NOTE | 2020-10-03 19:01 | NUR ---
10/03/20 s/w Son Bradley, he says that his father is approved for services with [facility] I asked whom he spoke with, says he does not know, someone at [facility]. Bradley would prefer that Josue returns home with caregivers, with Lenore, no confirmation of Christines willingness to help or have him return to home. I attempted to call [facility] to confirm medicaid services approval, VEC [phone]. on hold for over 10 minutes. Will try again tomorrow.
--- NOTE | 2020-10-04 04:04 | NUR ---
SHIFT SUMMARY ADMITTED FOR HYPONATREMIA. FULL CODE. PLAN IS FOR PLACEMENT. LIFT PATIENT. PT IS CONFUSED. CRUSH MEDS IN SAUCE. CALL BUTTON WITHIN REACH, BED ALARM SET. ANTIFUNGAL POWDERIS AVAILABLE FOR JOSHUA AREA RASH. NO NEW CONCERNS THIS SHIFT
--- NOTE | 2020-10-04 09:52 | NUR ---
10/04/20 s/w Son, Bradley, I asked him for a case number or casemanager name. He tried to call [employer]s telephone, was told he needed to contact local office, new program not working. Gave Bradley local number, choose 8 for pelletising extruder operator, schedule appointment to come in to apply for services. Bradley, appointment scheduled for Friday10/06/20 at 3:45 for phone call application with [employer] for services. philip
--- NOTE | 2020-10-04 17:58 | NUR ---
SHIFT SUMMARY PT RESISTING TURNING FOR CHANGING WHILE IN BED. DOES TURN HIMSELF WHILE IN BED THOUGH. DAUGHTER AT BEDSIDE FOR SHORT TIME. SLOW TO RESPOND WHEN HE DOES RESPOND VERBALLY BUT ISN'T USUALLY RESPONDING APPROPRIATE TO QUESTION AT HAND. INCONTINENT OF URINE AND STOOL. FEEDS SELF AT TIMES AND OTHER TIMES DOESN'T BUT ALSO REFUSES HELP. USUALLY DRINKING ENSURE PROVIDED ON TRAY.
--- NOTE | 2020-10-04 19:20 | NUR ---
ASSUMED CARE RECEIVED REPORT FROM ANKITA MOREIRA. PT RESTING IN BED, NO ACUTE DISTRESS NOTED. NO ACUTE NEEDS ASSESSED AT THIS TIME. CALL LIGHT, POSSESSIONS IN REACH, BED IN LOW POSITION WITH ALARMS ON, CONTINUE TO MONITOR.
--- NOTE | 2020-10-05 07:00 | NUR ---
SHIFT SUMMARY PT RESTING, NO S/S ACUTE DISTRESS NOTED. VS REVIEWED, WNL. PT APPEARED TO SLEEP SOME T/O NIGHT. NOTED TO BE POSITIONING SELF TOWARDS EDGE OF BED AT THIS TIME, RE-ORIENTED PT TO SURROUNDINGS. CONTINUES TO BE RESISTANT TOWARDS CARES, WITH PERIODS OF INCREASED AGITATION TOWARDS STAFF. NO ACUTE NEEDS ASSESSED AT THIS TIME. CALL LIGHT, POSSESSIONS IN REACH, BED IN LOW POSITION WITH ALARMS ON. REPORT GIVEN TO ANKITA MOREIRA.
--- NOTE | 2020-10-05 18:56 | NUR ---
SHIFT SUMMARY ASSISTED WITH MEALS BUT WOULD ONLY EAT AT TIMES. INCONTINENT OF URINE AND STOOL. CAN BE DIFFICULT TO REPOSITION DUE TO PT RESISTING. CAN MOVE SELF AROUND IN BED WHEN LEFT ALONE. WHEN HE DOES RESPOND TO QUESTIONS HE IS SLOW TO RESPOND AND USUALLY ISN'T IN CONTEXT TO QUESTION.
--- NOTE | 2020-10-05 19:20 | NUR ---
ASSUMED CARE RECEIVED REPORT FROM ANKITA MOREIRA. PT RESTING, NO ACUTE DISTRESS NOTED. DENIES NEEDS. CALL LIGHT, POSSESSIONS IN REACH. BED IN LOW POSITION WITH ALARMS ON. CONTINUE TO MONITOR.
[2020-10-06 06:04] LABS: Anion Gap 8 mmol/L (6-16); Blood Urea Nitrogen 37 mg/dL (8-24); Bun/Creatinine Ratio 31.1 (12.0-20.0); CO2, Blood 24 mmol/L (21-32); Calcium, Blood 9.5 mg/dL (8.5-10.1); Chloride, Blood 107 mmol/L (98-108); Creatinine, Blood 1.19 mg/dL (0.60-1.20); Glomerular Filtration Rate >60 (60-); Glucose, Blood 118 mg/dL (70-99); Potassium, Blood 4.9 mmol/L (3.5-5.5); Sodium, Blood 139 mmol/L (136-145)
--- NOTE | 2020-10-06 06:50 | NUR ---
SHIFT SUMMARY PT LYING COMFORTABLY IN BED, NO ACUTE DISTRESS NOTED. NO ACUTE CHANGES IN CONDITION T/O NIGHT, VS REVIEWED, WNL. REMAINS CONFUSED, VERBALIZES OCCASIONAL WORDS TO STAFF. MOSTLY COOPERATIVE WITH CARES THIS SHIFT. NO ACUTE NEEDS ASSESSED AT THIS TIME. CALL LIGHT, POSSESSIONS IN REACH, BED IN LOW POSITION WITH ALARMS ON. REPORT GIVEN TO ANKITA ADAIR.
--- NOTE | 2020-10-06 17:13 | NUR ---
10/06/20 s/w Son, Bradley, completed application for services with Aimee Andres at [facility]. Bradley was told 15-45 days to process application. Bradley, sister and uziel Pizarro are all unable to meet [place] care needs with out caregiver assistance or placement. Updated Yolanda MARSH.
--- NOTE | 2020-10-06 17:15 | NUR ---
PATIENT IS ALERT AND ORIENTED TO SELF ONLY. PATIENT DOES NOT FOLLOW DIRECTIONS WELL. PHYSICAL THERAPY WORKED WITH THE PATIENT TODAY AND SUGGEST THE STAFF DOES NOT TRY TO GET HIM UP OOB WITHOUT A LIFT. HE IS INCONTINENT OF BOWEL AND BLADDER, ATTENDS IN PLACE. REPOSITIONING WITH PILLOWS. THE PATIENT'S DAUGHTER WAS AT THE BEDSIDE FOR AN HOUR TODAY. WILL CONTINUE TO MONITOR
--- NOTE | 2020-10-07 04:02 | NUR ---
SHIFT SUMMARY ASSUMED CARE OF PT AT 1900. PT IS A/OX1. PT DOES NOT FOLLOW ALL COMMANDS GIVEN. HEART SOUNDS REGULAR, LUNG SOUNDS DIMINISHED AT BASES. PT WAS INCONTIENT OF BLADDER AND STOOL. PT HAS A HEALING RASH IN HIS JOSHUA AREA, MEDICATED PER EMAR. PT SLEPT MOST OF THE NIGHT. PALAK LIGHT IN REACH, BED IN LOWEST POSTION, BED ALARM ON FOR SAFTY.
[2020-10-07 05:36] LABS: BASOPHILS ABSOLUTE AUTO 0.08 K/mm3 (0.00-0.23); BASOPHILS PERCENT AUTO 1 % (0-2); EOSINOPHILS ABSOLUTE AUTO 0.11 K/mm3 (0.00-0.68); EOSINOPHILS PERCENT AUTO 1 % (0-6); Hematocrit 39.2 % (37.0-53.0); Hemoglobin 12.4 g/dL (13.5-17.5); IMMATURE GRAN ABSOLUTE AUTO 0.07 K/mm3 (0.00-0.10); IMMATURE GRAN PERCENT AUTO 1 % (0-1); LYMPHOCYTES ABSOLUTE AUTO 2.25 K/mm3 (0.84-5.20); LYMPHOCYTES PERCENT AUTO 19 % (21-46); MONOCYTES ABSOLUTE AUTO 0.98 K/mm3 (0.16-1.47); MONOCYTES PERCENT AUTO 8 % (4-13); Mean Corpuscular HGB 33.7 pg (26.0-34.0); Mean Corpuscular HGB Conc 31.6 g/dL (31.5-36.5); Mean Corpuscular Volume 107 fL (80-100); Mean Platelet Volume 11.7 fL (9.1-12.4); NEUTROPHILS ABSOLUTE AUTO 8.36 K/mm3 (1.96-9.15); NEUTROPHILS PERCENT AUTO 71 % (41-73); Platelet Count 319 K/mm3 (150-400); RDW Coefficient Variation 18.6 % (11.7-14.2); RDW Standard Deviation 74.1 fL (35.1-46.3); Red Blood Cell Count 3.68 M/mm3 (4.30-5.90); White Blood Cell Count 11.85 K/mm3 (4.00-11.30)
[2020-10-07 06:05] LABS: Albumin/Globulin Ratio 0.3 (0.8-1.8); Bilirubin, Total 2.4 mg/dL (0.1-1.0); Bun/Creatinine Ratio 35.1 (12.0-20.0); Calcium, Blood 9.6 mg/dL (8.5-10.1); Creatinine, Blood 1.34 mg/dL (0.60-1.20); Globulin, Blood 6.4 g/dL (2.2-4.0); Magnesium, Blood 2.5 mg/dL (1.6-2.4); Potassium, Blood 5.1 mmol/L (3.5-5.5); Total Protein, Blood 8.4 g/dL (6.4-8.2)
--- NOTE | 2020-10-07 18:02 | NUR ---
SHIFT SUMMARY PATIENT ALERT TO SELF THIS SHIFT. PATIENT IS INCONTENENT OF BOWEL AND BLADDER THIS SHIFT. PATIENT ONLY ABLE TO ANSWER SIMPLE QUESTIONS WITH 1-2 WORD ANSWERS. PATIENT IS VERY RIDGED THIS SHIFT. PATIENT REQUIRES 2 PERSON TO TURN TO CHANGE OR CLEAN. PATIENT SITTING UP IN BED THIS SHIFT WITHOUT REPORTS OR SIGNS OF PAIN.
[2020-10-08 05:57] LABS: Anion Gap 6 mmol/L (6-16); Blood Urea Nitrogen 52 mg/dL (8-24); Bun/Creatinine Ratio 41.9 (12.0-20.0); CO2, Blood 26 mmol/L (21-32); Calcium, Blood 9.7 mg/dL (8.5-10.1); Chloride, Blood 110 mmol/L (98-108); Creatinine, Blood 1.24 mg/dL (0.60-1.20); Glomerular Filtration Rate >60 (60-); Glucose, Blood 118 mg/dL (70-99); Magnesium, Blood 2.6 mg/dL (1.6-2.4); Phosphorus, Blood 5.3 mg/dL (2.5-4.9); Potassium, Blood 4.6 mmol/L (3.5-5.5); Sodium, Blood 142 mmol/L (136-145)
--- NOTE | 2020-10-08 06:42 | NUR ---
SHIFT SUMMARY- PT. CONFUSED, UNABLE TO FOLLOW COMMANDS. REPOSITIONED FOR COMFORT AND PRN DURING THE NIGHT, 2 MAX ASSIST WITH REPOSITIONING. NO S/S OF PAIN OR DISCOMFORT T/O THE NIGHT. SLEPT ON/OFF T/O THE SHIFT, NO APPARENT DISTRESS NOTED. TOLERATED PO MEDS WELL, CRUSHED IN APPLESAUCE. INCONT, ATTENDS IN PLACE. VSS. CALL LIGHT WITHIN REACH, SIDE RAILS UPX2, AND BED ALARM ON FOR SAFETY.
--- NOTE | 2020-10-08 17:24 | NUR ---
SHIFT SUMMARY PATIENT ALERT TO SELF THIS SHIFT. PATIENT HAD A VISITOR IN THE ROOM FOR MUCH OF THE AFTERNOON. PATIENT REMAINS VERY RIGID AND DIFFICULT TO TURN. PATIENT RESPONDS WITH ONLY SIMPLE STATEMENTS OR A SMALL NOD OR SHAKE OF THE HEAD. PATIENT SITTING UP IN BED THROUGHOUT THIS SHIFT. PATIENT DENIES PAIN. PATIENT EATING ONLY SMALL AMOUNTS OF HIS MEALS, ENJOYS ENSURES. PATIENT CURRENTLY SITTING UP IN BED WATCHING TELEVISION.
--- NOTE | 2020-10-09 05:58 | NUR ---
SHIFT SUMMARY- NO ACUTE CHANGES TO CONDITION. PT. HAD SEVERAL SOFT BM'S THIS SHIFT. UNABLE TO FOLLOW COMMMANDS, NEEDS 2 PERSON MAX ASSIST FOR TURING AND REPOSTIONING. PT. IS STIFF AND DIFFICULT TO TURN. DENIES PAIN, VSS. APPEARS TO BE RESTING COMFORTABLY IN BED, NO APPARENT DISTRESS NOTED. CALL LIGHT WITHIN REACH AND SIDE RAILS UPX2. WILL CONT TO MONITOR.
[2020-10-09 06:13] LABS: Anion Gap 6 mmol/L (6-16); Blood Urea Nitrogen 61 mg/dL (8-24); Bun/Creatinine Ratio 44.5 (12.0-20.0); CO2, Blood 26 mmol/L (21-32); Calcium, Blood 9.7 mg/dL (8.5-10.1); Chloride, Blood 109 mmol/L (98-108); Creatinine, Blood 1.37 mg/dL (0.60-1.20); Glomerular Filtration Rate 56 (60-); Glucose, Blood 118 mg/dL (70-99); Magnesium, Blood 2.5 mg/dL (1.6-2.4); Phosphorus, Blood 4.7 mg/dL (2.5-4.9); Sodium, Blood 141 mmol/L (136-145)
--- NOTE | 2020-10-09 17:00 | NUR ---
10/09/20 s/w Jaclyn in [facility]. Memory care I think is going to be the best option for Josue, she will reach out to Herve gonzales again and look at local memory cares for possible placement. Insurance will be Medicaid if approved. cp
--- NOTE | 2020-10-09 18:26 | NUR ---
SHIFT SUMMARY PATIENT ALERT TO SELF THIS SHIFT. NO ACUTE CHANGES THIS SHIFT. PATIENT TO THE RECLINER FOR MUCH OF THIS SHIFT VIA LIFT. PATIENT REMAINS RIGID AND DIFFICULT TO TURN. PATIENT WITH NONSENSICAL SPEACH AND OCCASIONAL ANSWERS TO YES OR NO QUESTIONS WITH A SMALL HEAD MOVEMENT. PATIENT CURRENTLY SITTING UP IN BED EATING DINNER.
--- NOTE | 2020-10-10 04:14 | NUR ---
PYRIDINE RECOVERY OPERATOR SUMMARY A/O TO SELF ONLY. SPEECH NONSENSICAL AT TIMES, ANSWERS SOME YES/NO QUESTIONS. DIFFICULTY FOLLOWING COMMANDS AND VERY DIFFICULT TO TURN. DENIES PAIN OR SOB. MEDS CRUSHED IN APPLESAUCE. CURRENTLY ON BEDREST, AWAITING PLACEMENT. VSS, NO ACUTE CHANGES AT THIS TIME. BED IN LOWEST POSITION, ALARM ON, CALL LIGHT WITHIN REACH. WILL CONTINUE TO MONITOR AND REPORT TO ONCOMING RN.
--- NOTE | 2020-10-10 15:29 | NUR ---
PATIENT HAS BEEN PLEASANT AND COOPERATIVE WITH STAFF. ALERT AND ORIENTED TO SELF ONLY; PLEASANTLY CONFUSED. VITALS STABLE AND WNL. PATIENT HAS BEEN UP IN THE BEDSIDE CHAIR SINCE APPROXIMATELY LUNCH TIME. NEEDS ASSISTANCE WITH FEEDING. NO ACUTE CHANGES NOTED THIS SHIFT. PATIENT CONTINUES TO WAIT FOR PLACEMENT.
--- NOTE | 2020-10-10 17:45 | NUR ---
10/10/20 reviewing PT and OT notes, on 10/05/20 OT is recommending to discontinue services because Josue is not participating. He is a total assist, will require a stacy lift for all care in the outpatient setting. I will update [facility] management to look for placement that will accept a patient lift. cp
--- NOTE | 2020-10-11 07:36 | NUR ---
10/11/20 0615 AWAKENED FOR AM MED. ONLY ALERT TO SELF AND RESISTS TURNING AND HYGEINE CARE. HAD SEVERAL LOOSE BMS AND VOIDINGS. DENIES PAIN. TURNED BY STAFF BUT HE WILL FAVOR THE RT SIDE WHEN STAFF RETURN FOR ROUNDS.
--- NOTE | 2020-10-11 19:11 | NUR ---
SHIFT SUMMARY ESTHER DENIED PAIN THIS SHIFT. VERY SLOW VERBAL RESPONSE IF ANY. CONFUSED, A/OX1. INCONTINENT URINE AND STOOL, HAD A COUPLE BMS THIS SHIFT. SET OFF BED ALARM BY SITTING AT EDGE OF BED. TOOK MEDS CRUSHED IN APPLESAUCE. MICONAZOLE APPLIED TO YEAST RASH IN GROIN. CALL LIGHT IN REACH, REPORT GIVEN TO NIGHT NURSE
--- NOTE | 2020-10-12 04:05 | NUR ---
SHIFT SUMMARY: VSS. AFEB. AAOX1. VERBAL RESPONSE DELAYED AND MOSTLY NON-SENSICAL. WILL ATTEMPT JOKES AND LAUGH. PLEASANT. INCONTINENT. TAKING PO FOOD AND FLUIDS WELL. REMAINS IN BED. STIFF W/ TURNS. NO ACUTE CHANGES. WCTM.
--- NOTE | 2020-10-12 17:23 | NUR ---
SHIFT SUMMARY PT IS AO TO SELF. PT DENIES PAIN, N/V, SOB. PT IS VERY FORGETFUL AND CONFUSED. PT'S DAUGHTER IN TO VISIT THIS EDWARDO. PT IS 2-3 PERSON MAX ASSIST AND LIFT TO THE CHAIR. PLAN IS FOR SNF PLACEMENT. PT CONTINUES TO HAVE POOR APPETITE. PT IS IN BED, CALL LIGHT IN REACH, BED IN LOW POSITION.
--- NOTE | 2020-10-13 04:30 | NUR ---
SHIFT SUMMARY: VSS. AFEB. A/0X1. SPEECH IS SLOW IN RESPONSE AND NON-SENSICAL. PT SETS BED ALARM ON SEVERAL TIMES THROUGH THE NIGHT, USUALLY LEANING TO REACH OBJECTS ON BED SIDE TABLE, BUT ONCE TONIGHT WAS WEAKLY ATTEMPTING TO STAND UP AT EDGE OF BED. POOR SAFETY AWARENESS. BED ALARM REMAINS ON AT ALL TIMES, SIDE RAILS UP X 3. INCONT OF BOWEL AND BLADDER. TAKES PO FLUIDS WELL AND ACCESSES DRINKS INDEPENDENTLY FROM BED SIDE TABLE. ABLE TO TURN SELF INDEPENDENTLY IN BED BUT STIFFENS AND RESISTS STAFF ASSISTED TURNS DURING ATTENDS CHANGES. NO ACUTE CHANGES OVERNIGHT. WCTM.
--- NOTE | 2020-10-13 18:50 | NUR ---
SHIFT SUMMARY- PT ALERT AND ORIENTED TO SELF ONLY. MOSTLY NONSENSICAL SPEECH. PT INCONTINENT AND VOIDS FREQUENTLY, ATTENDS INPLACE WITH ADDITIONAL PAD FOR LARGE VOIDS. PT CHANGED MULTIPLE TIMES T/O THE DAY. PT VERY CONFUSED HIGH FALL RISK AND HAS STARTED JUMPING OUT OF BED TODAY. NO IV ACCESS NEEDED. WILL PASS ALL ON TO NIGHTRN IN BEDSIDE REPORT.
--- NOTE | 2020-10-14 04:06 | NUR ---
SHIFT SUMMARY PATIENT HAD NO ACUTE CHANGES OBSERVED. AXO TO SELF AND BEDREST WITH NON-SENSICAL SPEECH. ACTIVATED BED ALARM X TWO REACHING OVER BED RAILS. TAKES MEDICATION WHOLE X ONE EACH IN APPLESAUCE. [place]. NO IV ACCESS. VSS/AFEBRILE. DENIES PAIN, SOB, AND N/V. CALL LIGHT IN REACH. BED IN LOWEST POSITION. WILL CONTINUE TO MONITOR UNTIL DAY SHIFT NURSE ASSUMES CARE.
--- NOTE | 2020-10-14 17:46 | NUR ---
SHIFT SUMMARY- PT STILL CONFUSED STILL SPEAKING NONSENSICALLY. PT STILL RESISTENT TO ROLL AND CHANGE. ONE LARGE BM TODAY, MULTIPLE CHANGES T/O THE DAY, PT VOIDS FREQUENTLY AND IN LARGE QUANTITY. ATTENDS ARE IN PLACE WITH AN ADDITIONAL PAD TO COLLECT MOISTURE. PT FREQUENTLY FIDDLES WITH THE ATTENDS CAUSING THEM TO LEAK OR BE INEFFECTIVE. ATTENDS CHANGE COMPLETED SEVERAL TIMES D/T DAMMAGED ATTENDS. FOR THE MOST PART THE PT IS PLEASENTLY CONFUSED. PT IN BED CALL LIGHT IN REACH NO S&S OF DISTRESS NOTED; NO ACUTE CHANGES T/O THE DAY. WILL CTM AND PASS ON TO NIGHT RN IN BEDSIDE REPORT.
--- NOTE | 2020-10-15 05:22 | NUR ---
FACILITY MAINTENANCE MECHANIC SUMMARY PT A/O X0. DIDN'T GET MUCH SLEEP TONIGHT. PT BODY VERY STIFF WITH ATTENDS CHANGE. PT REPOSITIONS SELF. DENIES PAIN. VSS. NO ACUTE CHANGES. ROOM AIR. CALL LIGHT WITHIN REACH, BED ALARM IN PLACE.
--- NOTE | 2020-10-15 15:10 | NUR ---
ALERT TO SELF. NONSENSICAL SPEECH. APPEARS PLEASANTLY CONFUSED. MAX TWO PERSON ASSIST WITH BRIEF CHANGES AND MOVING PATIENT DOES NOT FOLLOW ANY COMMANDS AND RESISTS/STIFFENS. UNLABORED RESPIRATIONS. INCONTINENT AND SATURATES BRIEFS. BED ALARM. SLOW EATTER. FEET DISCOLORED WITH THICK CALLUSES AND DRY SKIN. DOES NOT ALLOW STAFF TO CLEAN FEET VERY WELL PULLS FEET AWAY WHEN TOUCHED. NO APPARENT DISTRESS NOTED. AWAITING PLACEMENT. [facility]
--- NOTE | 2020-10-16 04:33 | NUR ---
SHIFT SUMMARY PATIENT HAD NO ACUTE CHANGES OBSERVED. ALERT TO SELF AND BEDREST WITH NON-SENSICAL SPEECH. DENIES PAIN, SOB, AND N/V. DOES NOT FOLLOW COMMANDS. BED ALARM ACTIVATED X TWO SWINGING LEGS TO SIDE OF BED. VSS/AFEBRILE. TAKES MEDICATION CRUSHED IN APPLESAUE. NO IV ACCESS. CALL LIGHT IN REACH. BED IN LOWEST POSITION. WILL CONTINUE TO MONITOR UNTIL DAY SHIFT NURSE ASSUMES CARE.
--- NOTE | 2020-10-16 18:05 | NUR ---
SHIFT SUMMARY. ALERT, ORIENTATED TO SELF AND FAMILY. PLEASANT AND COOPERATIVE WITH CARE. PT DENIES PAIN SOB, N/V. UP TO CHAIR WITH LIFT FOR LUNCH. INCONTINENT OF BOWEL AND BLADDER. PT ASSESSED FOR PLACEMENT BY NICHOLAS DIGGS THIS AFTERNOON WHEN SON WAS PRESENT. NO OTHER CHANGES OR CONCERNS.
--- NOTE | 2020-10-17 05:44 | NUR ---
GALLEY HAND SUMMARY NO ACUTE CHANGES. PT AAOX1, IMPULSIVE. BED ALARM ON, PT ATTEMPTS TO GET OOB MULTIPLE TIMES THROUGH THE NIGHT. EASILY REDIRECTED. STILL AWAITING PLACEMENT. VSS, WILL CONTINUE TO MONITOR.
[2020-10-17 12:09] LABS: A/G RATIO 0.5 (0.7-1.7); ALBUMIN 2.3 g/dL (2.9-4.4); ALPHA-1-GLOBULIN 0.4 g/dL (0.0-0.4); ALPHA-2-GLOBULIN 0.9 g/dL (0.4-1.0); BETA GLOBULIN 1.5 g/dL (0.7-1.3); GAMMA GLOBULIN 2.1 g/dL (0.4-1.8); M-SPIKE 0.9 g/dL (Not Observed); PROTEIN, TOTAL, SERUM 7.3 g/dL (6.0-8.5)
--- NOTE | 2020-10-17 17:46 | NUR ---
10/16/20 I was contacted by brijesh Sexton. She said she was in over the weekend and Kevin was very responsive, recognized her and was trying to get out of bed on his own. This is very different than what she has been seeing. She was wondering if his condition is improving and may benefit from PT OT services again. She had questions about his medications. I referred her to speak with floor nurse for questions about meds and condition changes. Josue remains in hospital waiting for medicaid and placement in custodial care. [facility] did assess him on 10/16/20. Have not heard back from [facility] about acceptance for future placement. cp
--- NOTE | 2020-10-17 18:54 | NUR ---
SHIFT SUMMARY PT AxOx1- SELF. UNABLE TO CONSISTENTLY FOLLOW DIRECTIONS. RIGIDITY NOTED TO EXTREMITIES WITH TRANSFERS AND INTERMITTENT MILD BUE TREMORS. PT CURRENTLY LIFT FOR TRANSFERS. PT/OT REORDERED TODAY. PT DAUGHTER IN FOR VISIT TODAY, UPDATED ON PLAN. CURRENTLY UNDER PLACEMENT SEARCH. VITALS REVIEWED. PT IS RESTING IN BED WITH CALL LIGHT IN REACH.
--- NOTE | 2020-10-18 04:12 | NUR ---
SHIFT SUMMARY ADMITTED FOR HYPONATREMIA. FULL CODE. PLAN IS FOR PLACEMENT. BED ALARM IS ON. IT WAS REPORTED THAT PT HAS BEGUN IMPULSIVELY EXITING HIS BED. HE IS A 2 PERSON CHANGE AND INCONTINENT. HE DOES NOT ASSIST WITH TURNS. MEDS CRUSHED IN SAUCE, HE IS A FEEDER. HE IS NOT REDIRECTABLE
--- NOTE | 2020-10-18 18:25 | NUR ---
PT REMAINS BEDBOUND, MAX ASSIST WITH LIFT AND NEEDS 100% FEEDING ASSISTANCE. PT WAS ASSESSED BY ST AND DIET WAS MODIFIED TO MECH/SOFT, NO MIXED CONS., NECTAR THICK AND NO STRAWS. PT WAS TURNED Q2H THIS SHIFT AND MICONAZOLE POWDER APPLIED TO REDDENED JOSHUA AREA. PT IS CONFUSED AT BASELINE AND NOT ABLE TO EXPRESS HIS NEEDS, ALTHOUGH HE WILL INTERM. ANSWER QUESTIONS WITH FULL SENTENCES. NO IV ACCESS NEEDED. BED IN LOW POSITION. STAFF WILL CONT. TO MONITOR.
--- NOTE | 2020-10-19 05:02 | NUR ---
SHIFT SUMMARY NO ACUTE CHANGES THIS SHIFT. PT IS CALM AND PLEASANT. COOPERATIVE WITH CARE FOR THE MOST PART, DURING ATTEND CHANGES PT WILL STIFFEN AND RESIST CARE. A&O TO SELF ONLY, SPEECH IS NONSENSICAL. 2 PERSON ASSIST WHILE IN BED, PT WAS BEDREST FOR THIS SHIFT. PT IS LAYING IN BED WITH EYES CLOSED, EVEN AND UNLABORED RESPIRATIONS. BED IN LOWERED POSITION WITH ALARM IN PLACE. CALL LIGHT AND PERSONAL ITEMS WITH IN REACH. NO APPARENT NEEDS OR DISTRESS AT THIS TIME, WILL CONTINUE TO MONITOR UNTIL REPORT GIVEN TO DAY RN.
--- NOTE | 2020-10-19 10:14 | NUR ---
10/18/20 Per Le in [facility] case management, Josue has been accepted at [facility] if he does not require treament for Diabetes. I reviewed his chart, we are not treating for Diabetes. I will contact his family to let them know about the acceptance. If they are not agreeable, they will need to find a alternative facility. WE ARE STILL WAITING FOR MEDICAID APPROVAL BEFORE DISCHARGING TO [facility]. It could still be a couple weeks before a decsion is made. cp
--- NOTE | 2020-10-19 18:36 | NUR ---
PT RESTING IN BED AFTER DINNER AND PM MEDICATION ADMIN. PT C/O PAIN IN HIS LOWER LEFT ABDOMEN AND WAS TREATED PER EMAR. PT ATE HIS MEALS, WAS MED COMPLIANT AND CONT. TO HAVE LOOSE STOOLS THROUGHOUT THE DAY. PER MD, PT NEEDS ATLEAST THREE BM'S DAILY. PT HAS NO IV ACCESS ORDERED PER MD. STAFF WILL CONT. TO MONITOR FOR CHANGES.
--- NOTE | 2020-10-20 07:39 | NUR ---
SHIFT SUMMARY ALERT. CHICKEN RANCH AND SLOW TO RESPOND. COOPERATIVE WITH CARE. HOWEVER DIFFICULTY FOLLOWING DIRECTIONS. NO C/O PAIN/DISCOMFORT. APPEARED TO REST MUCH OF THE SHIFT. ATTENDS IN PLACE; ROUTINE CHECKS. CONTINUES TO AWAIT SAFE DISCHARGE. BED REMAINS IN LOWEST POSITION; ALARM ON. CALL LIGHT WITHIN REACH; HOWEVER, DOES NOT UTILIZE. CONTINUE WITH CURRENT PLAN OF CARE. REPORT GIVEN TO ONCOMING RN.
--- NOTE | 2020-10-20 17:31 | NUR ---
Met with patients daughter to review his care. She states he can sometimes stand and she does not understand why therapy cant work with him when he is more alert. Review with her wernickies encephalopathy and gave her a hand out. Gently reviewed how his future is going to change and he needs to placement. They want him to go to [place] and rehab at a particular SNF that a family memeber works at. Advised her that we cant wait for that we need to have a plan. Will review code status with her she was a little overwhelms with the conversation.
--- NOTE | 2020-10-20 18:14 | NUR ---
SHIFT SUMMARY PT AWAITING PLACEMENT AT THIS TIME. PT GOT UP INTO CHAIR USING INGRID LOFT TODAY. INCONT T/O SHIFT. PT ORIENTED TO SELF ONLY & UNABLE TO FOLLOW MOST DIRECTIONS. PT DAUGHTER INSISTANT ON HAVING PT/OT SEE THE PT. DR. MARS EDUCATED ON ETOH & WERNICKES ENCEPHALOPATHY. PALLIATIVE CARE CONSULTED WELL FOR FURTHER EDUCATION. PT DAUGHTER CAME IN TO VISIT AND COMPLETED NAIL CARE WHILE IN THE ROOM. PT RESTING IN BED CURRENTLY. BED ALARM ON. VS REVIEWED.
--- NOTE | 2020-10-21 03:33 | NUR ---
SHIFT SUMMARY ALERT AND ORIENTED TO SELF ONLY. PT IS SLOW TO RESPOND. REMAIN TO HAVE DIFFICULTY TO FOLLOW DIRECTION, NEEDS A LOT OF REDIRETION AND CUES. NO ACUTE CHANGES OVERNIGT.VSS. DOES NOT APPEARED IN PAIN. PT IS COMFORTABLE IN BED. ALARM ON AND CALL LIGHT WITHIN REACH. PT WAITING FOR PLACEMENT.
--- NOTE | 2020-10-21 18:13 | NUR ---
SHIFT SUMMARY PT IS AO TO SELF, BUT MOSTLY NONVERBAL AND DID NOT RECOGNIZE HIS VISITOR TODAY. PT DENIES PAIN, N/V, SOB. PT TRANSFERRED TO THE CHAIR FOR LUNCH AND MID-EVENING USING THE LIFT. PLAN IS TO FIND PLACEMENT FOR PT. PT HAD ONE SMALL BM AND ONE SMEAR BM. PT IS IN BED, CALL LIGHT IN REACH, ALARM ON.
--- NOTE | 2020-10-22 04:35 | NUR ---
SHIFT SUMMARY NO ACUTE CHANGES TO REPORT THIS SHIFT. PT HAS RESTED MOST OF THE NIGHT. MENTATION UNCHANGED. PT IS ORIENTED TO SELF AND CITY, BUT DOES NOT ANSWER ANY OF MY OTHER QUESTIONS. NONSENSICAL SPEECH AT TIMES. ASSESSMENT UNCHANGED. STILL AWAITING PLACEMENT. BED IN LOWEST POSITION, CALL LIGHT WITHIN REACH.
--- NOTE | 2020-10-22 18:08 | NUR ---
SHIFT SUMMARY PT IS AO TO SELF. PT DENIES PAIN, N/V. PT DID APPEAR SOB THIS EDWARDO WITH ELEVATED RESPIRATIONS WHICH SELF RESOLVED CURRENTLY. PT IS A LIFT PT FOR TRANSFERS. PT UP TO CHAIR BY THE WINDOW TODAY AND SEEMED MORE VOCAL THAN YESTERDAY. PT'S GIRLFRIEND VISITED THIS EDWARDO. PLAN IS TO WAIT FOR PLACEMENT. PT ORAL INTAKE OF FLUIDS IMPROVED TODAY. PT IS IN BED, CALL LIGHT IN REACH, BED IN LOW POSITION WITH ALARM ON.
--- NOTE | 2020-10-23 07:32 | NUR ---
SHIFT SUMMARY PT IS A 68 Y/O MALE, ORIGINALLY ADMITTED FOR HYPONATREMIA AND CURRENTLY AWAITING PLACEMENT. PT IS A&O X 0, BEDREST, TURN Q2H. NO C/O NAUSEA, SOB OR PAIN. VITAL SIGNS STABLE. NO ACUTE CHANGES IN PT CONDITION NOTED. REPORT GIVEN TO ONCOMING RN.
--- NOTE | 2020-10-23 18:04 | NUR ---
PT RECEIVED FROM UNIT NURSE A ROOK TRANSFER. PT WAS ALERT BUT NOT ORIENTED OR ABLE TO EXPRESS HIS NEEDS. PT IS RESTING IN BED AND COMFORT IS WNL. STAFF WILL CONT. TO MONITOR.
--- NOTE | 2020-10-23 18:24 | NUR ---
TRANSFER NOTE- PT HAS BEEN VERY CONFUSED AND ACTIVE TODAY, UNDRESSING AND REMOVING ATTENDS FREQUENTLY. NO S&S OF DISTRESS, JUST AGGITATION AND FREQUENT SOFT STOOLS INCONTINENT OF BOWEL AND BLADDER. PASSED ON TO MEDICAL RN AT THE TIME OF TRANSFER. PT ALERT AND OREINTED TO SELF. NO S&S OF DISTRESS AT THE TIME OF TRANSFER
--- NOTE | 2020-10-24 03:47 | NUR ---
BASE REMOVER SUMMARY A/O TO SELF ONLY. MUMBLES INCOHERENTLY AT TIMES, RESTLESS T/O NIGHT. ATTEMPTED TO GET OUT OF BED ONCE THIS SHIFT. DENIES PAIN OR SOB. NO ACUTE CAHNGES AT THIS TIME. BED IN LOWEST POSITION, ALARM ON, CALL LIGHT WITHIN REACH. WILL CONTINUE TO MONITOR AND REPORT TO ONCOMING RN.
[2020-10-24 05:11] LABS: BASOPHILS ABSOLUTE AUTO 0.09 K/mm3 (0.00-0.23); BASOPHILS PERCENT AUTO 1 % (0-2); EOSINOPHILS ABSOLUTE AUTO 0.34 K/mm3 (0.00-0.68); EOSINOPHILS PERCENT AUTO 3 % (0-6); Hematocrit 36.3 % (37.0-53.0); Hemoglobin 11.2 g/dL (13.5-17.5); IMMATURE GRAN ABSOLUTE AUTO 0.05 K/mm3 (0.00-0.10); IMMATURE GRAN PERCENT AUTO 1 % (0-1); LYMPHOCYTES ABSOLUTE AUTO 2.42 K/mm3 (0.84-5.20); LYMPHOCYTES PERCENT AUTO 22 % (21-46); MONOCYTES ABSOLUTE AUTO 0.84 K/mm3 (0.16-1.47); MONOCYTES PERCENT AUTO 8 % (4-13); Mean Corpuscular HGB 32.9 pg (26.0-34.0); Mean Corpuscular HGB Conc 30.9 g/dL (31.5-36.5); Mean Corpuscular Volume 107 fL (80-100); Mean Platelet Volume 10.8 fL (9.1-12.4); NEUTROPHILS ABSOLUTE AUTO 7.36 K/mm3 (1.96-9.15); NEUTROPHILS PERCENT AUTO 66 % (41-73); Platelet Count 397 K/mm3 (150-400); RDW Standard Deviation 51.3 fL (35.1-46.3)
[2020-10-24 05:29] LABS: Alanine Aminotransfer (ALT/SGP 38 U/L (12-78); Albumin/Globulin Ratio 0.3 (0.8-1.8); Alk Phos 321 U/L (50-136); Anion Gap 7 mmol/L (6-16); Aspartate Aminotrans (AST/SGOT 77 U/L (12-37); Blood Urea Nitrogen 47 mg/dL (8-24); Bun/Creatinine Ratio 42.3 (12.0-20.0); CO2, Blood 28 mmol/L (21-32); Calcium, Blood 9.4 mg/dL (8.5-10.1); Chloride, Blood 111 mmol/L (98-108); Creatinine, Blood 1.11 mg/dL (0.60-1.20); Globulin, Blood 6.3 g/dL (2.2-4.0); Glomerular Filtration Rate >60 (60-); Glucose, Blood 131 mg/dL (70-99); Magnesium, Blood 2.4 mg/dL (1.6-2.4); Phosphorus, Blood 4.1 mg/dL (2.5-4.9); Potassium, Blood 3.9 mmol/L (3.5-5.5); Sodium, Blood 146 mmol/L (136-145); Total Protein, Blood 8.3 g/dL (6.4-8.2)
--- NOTE | 2020-10-24 16:57 | NUR ---
SHIFT SUMMARY PT REMAINS IN ÁNGELA VEST T/O SHIFT. ALERT TO SELF ONLY. UNABLE TO FOLLOW DIRECTIONS. PT CHEWING PILLS RATHER THAN SWALLOWING THEM. DR. JIMENEZ NOTIFIED OF THIS. PT UP IN CHAIR FOR LUNCH USING MECHANICAL LIFT. TOLERATED WELL. PT HAVING A CONTINUOUS SOFT BM T/O DAY. PT DAUGHTER IN TO VISIT AND SPOKE WITH DR. JIMENEZ ON THE PHONE TODAY. HEAVY INCONT. NO OTHER ACUTE CHANGES IN ASSESSMENT AT THIS TIME. VS REVIEWED. PT CURRENTLY RESTING IN BED. CALL LIGHT IN REACH.
--- NOTE | 2020-10-25 04:05 | NUR ---
CLIENT RENEWAL SPECIALIST SUMMARY PT A&O TO SELF ONLY, CONT ON ÁNGELA VEST, RESTLESS AND CONT ON BED EXITING ATTEMTPS. PT FORGETFUL AND UNABLE TO FOLLOW SIMPLE INSTRUCTIONS FROM STAFF. NONSENSICAL SPEECH NOTED. NO C/O PAIN OR ANY DISCOMFORT. PT INCONTINENT OF B&B, ATTENDS IN PLACE. PT ABLE TO TAKE MEDS CRUSHED IN APPLESAUCE W/O ANY DIFFICULTY THIS SHIFT. PT CURRENTLY RESTING IN BED AT THIS TIME. BED AT LOWEST POSITION. CALL LIGHT WITHIN REACH.
--- NOTE | 2020-10-25 18:13 | NUR ---
SHIFT SUMMARY RESTRAINTS REMOVED THIS AFTERNOON SINCE PT DIDN'T APPEAR TO BE TRYING TO GET UP OR STAND BUT WOULD KICK HIS LEGS OVER SIDE OF BED AT TIMES. FOUND SITTING ON SIDE OF BED ONCE BUT OTHERWISE JUST FOUND RIPPING AT HIS ATTENDS AND CHEWING ON ITEMS WITHIN REACH. SON IN TO VISIT THIS AFTERNOON.
--- NOTE | 2020-10-26 04:35 | NUR ---
SHIFT SUMMARY- PT. ALERT TO SELF, CONFUSED AND AGITATED LAST NIGHT. ATTEMPTED SEVERAL TIMES DURING THE NIGHT TO GET OOB, PT. WEAK AND UNSTEADY. RECEIVED ORDER FOR ÁNGELA VEST RESTRAINT AND 4 SIDE RAILS UP. PT. REMAINED AGITATED T/O THE SHIFT, DISROBING, TEARING OFF BRIEF, AND PULLING ON RESTRAINT. HAVING LOOSE STOOLS, ON LACTULOSE. C/O PAIN AT THE BEGINNING OF THE SHIFT, MEDICATED PER EMAR. APPEARED TO HAVE GOOD RELIEF. NO ACUTE DISTRESS NOTED, VSS. CALL LIGHT WITHIN REACH, SIDE RAILS UPX4, AND BED ALARM ON. WILL CONT TO MONITOR.
[2020-10-26 14:29] LABS: BASOPHILS ABSOLUTE AUTO 0.12 K/mm3 (0.00-0.23); BASOPHILS PERCENT AUTO 1 % (0-2); EOSINOPHILS ABSOLUTE AUTO 0.48 K/mm3 (0.00-0.68); EOSINOPHILS PERCENT AUTO 4 % (0-6); Hematocrit 38.9 % (37.0-53.0); Hemoglobin 11.9 g/dL (13.5-17.5); IMMATURE GRAN ABSOLUTE AUTO 0.04 K/mm3 (0.00-0.10); IMMATURE GRAN PERCENT AUTO 0 % (0-1); LYMPHOCYTES ABSOLUTE AUTO 2.98 K/mm3 (0.84-5.20); LYMPHOCYTES PERCENT AUTO 23 % (21-46); MONOCYTES ABSOLUTE AUTO 1.25 K/mm3 (0.16-1.47); MONOCYTES PERCENT AUTO 10 % (4-13); Mean Corpuscular HGB 33.1 pg (26.0-34.0); Mean Corpuscular HGB Conc 30.6 g/dL (31.5-36.5); Mean Corpuscular Volume 108 fL (80-100); NEUTROPHILS ABSOLUTE AUTO 7.94 K/mm3 (1.96-9.15); NEUTROPHILS PERCENT AUTO 62 % (41-73); Platelet Count 498 K/mm3 (150-400); RDW Coefficient Variation 12.9 % (11.7-14.2); RDW Standard Deviation 51.6 fL (35.1-46.3); Red Blood Cell Count 3.59 M/mm3 (4.30-5.90); White Blood Cell Count 12.81 K/mm3 (4.00-11.30)
[2020-10-26 14:44] LABS: Albumin, Blood 2.2 g/dL (3.4-5.0); Albumin/Globulin Ratio 0.3 (0.8-1.8); Bilirubin, Total 0.9 mg/dL (0.1-1.0); Bun/Creatinine Ratio 41.5 (12.0-20.0); Calcium, Blood 10.1 mg/dL (8.5-10.1); Creatinine, Blood 1.35 mg/dL (0.60-1.20); Globulin, Blood 6.6 g/dL (2.2-4.0); Magnesium, Blood 2.4 mg/dL (1.6-2.4); Phosphorus, Blood 5.4 mg/dL (2.5-4.9); Total Protein, Blood 8.8 g/dL (6.4-8.2)
--- NOTE | 2020-10-26 17:21 | NUR ---
10/26/20 s/w Moira, girlfreind by telephone. She is requesting a call from Dr Brooks to discuss his current condition and the use of restraints. I discussed with her that we really need 1 point of contact for medical questions and information. Dr Brooks already has an appointment with his daughter this afternoon and will be unable to return her call. Moira was upset that the family does not seem to want her help. Says she is done. I welcomed her to come visit him. She said "NO" cp
--- NOTE | 2020-10-26 18:06 | NUR ---
SHIFT SUMMARY PT HAS BEEN RESTLESS IN BED MOST OF THE DAY. DAUGHTER AT BEDSIDE FOR SHORT TIME THIS AFTERNOON. NEW IV STARTED PER MD ORDERS FOR IV FLUIDS REPORTING CONCERN FOR DEHYDRATION. MEDICATED FOR PAIN WELL BUT BEHAVIOR DIDN'T SIGNIFICANTLY CHANGE. WRIST RESTRAINTS ADDED DUE TO LINE BEING INSERTED DUE TO PTS HISTORY OF REMOVING HIS LINES. HAS BEEN ASSISTED WITH EATING WITH EACH MEAL. HAS BEEN PLEASANT AND NON COMBATIVE WITH STAFF WITH CARE.
--- NOTE | 2020-10-27 04:33 | NUR ---
SHIFT SUMMARY- PT. RESTLESS DURING THE NIGHT, CONFUSED, AND AGITATED. ÁNGLEA VEST AND SOFT WRISTS RESTRAINTS IN PLACE. PT. HAD 2 LARGE LOOSE BM'S, LACTULOSE GIVEN. PT. A 2 MAX ASSIST FOR REPOSITIONING AND ATTENDS CHANGE, STIFFENS BODY, NOT DIRECTABLE. IV FLUIDS INFUSING, VSS. CALL LIGHT WITHIN REACH, SIDE RAILS UPX4, AND BED ALARM. WILL CONT TO MONITOR.
[2020-10-27 05:08] LABS: BASOPHILS ABSOLUTE AUTO 0.09 K/mm3 (0.00-0.23); BASOPHILS PERCENT AUTO 1 % (0-2); EOSINOPHILS ABSOLUTE AUTO 0.43 K/mm3 (0.00-0.68); EOSINOPHILS PERCENT AUTO 4 % (0-6); Hematocrit 37.7 % (37.0-53.0); Hemoglobin 11.8 g/dL (13.5-17.5); IMMATURE GRAN ABSOLUTE AUTO 0.04 K/mm3 (0.00-0.10); IMMATURE GRAN PERCENT AUTO 0 % (0-1); LYMPHOCYTES ABSOLUTE AUTO 2.54 K/mm3 (0.84-5.20); LYMPHOCYTES PERCENT AUTO 23 % (21-46); MONOCYTES ABSOLUTE AUTO 0.99 K/mm3 (0.16-1.47); MONOCYTES PERCENT AUTO 9 % (4-13); Mean Corpuscular HGB 33.8 pg (26.0-34.0); Mean Corpuscular HGB Conc 31.3 g/dL (31.5-36.5); Mean Corpuscular Volume 108 fL (80-100); Mean Platelet Volume 10.8 fL (9.1-12.4); NEUTROPHILS ABSOLUTE AUTO 6.77 K/mm3 (1.96-9.15); NEUTROPHILS PERCENT AUTO 62 % (41-73); Platelet Count 418 K/mm3 (150-400); RDW Standard Deviation 51.3 fL (35.1-46.3); Red Blood Cell Count 3.49 M/mm3 (4.30-5.90); White Blood Cell Count 10.86 K/mm3 (4.00-11.30)
[2020-10-27 05:38] LABS: Alanine Aminotransfer (ALT/SGP 42 U/L (12-78); Albumin, Blood 2.1 g/dL (3.4-5.0); Albumin/Globulin Ratio 0.3 (0.8-1.8); Alk Phos 334 U/L (50-136); Anion Gap 6 mmol/L (6-16); Aspartate Aminotrans (AST/SGOT 87 U/L (12-37); Bilirubin, Total 0.9 mg/dL (0.1-1.0); Blood Urea Nitrogen 47 mg/dL (8-24); Bun/Creatinine Ratio 40.5 (12.0-20.0); CO2, Blood 25 mmol/L (21-32); Calcium, Blood 9.5 mg/dL (8.5-10.1); Chloride, Blood 120 mmol/L (98-108); Creatinine, Blood 1.16 mg/dL (0.60-1.20); Globulin, Blood 6.2 g/dL (2.2-4.0); Glomerular Filtration Rate >60 (60-); Glucose, Blood 126 mg/dL (70-99); Potassium, Blood 4.2 mmol/L (3.5-5.5); Sodium, Blood 151 mmol/L (136-145); Total Protein, Blood 8.3 g/dL (6.4-8.2)
--- NOTE | 2020-10-27 16:45 | NUR ---
Patient being seen by Dr Ferrer 10/27 10/28 10/29 Dr Young starting 10/30/19 cp
--- NOTE | 2020-10-27 18:01 | NUR ---
SHIFT SUMMARY PT IS AO TO SELF. PT DENIES PAIN, N/V, SOB. PT REMAINS IN POSY VEST WITH BILATERAL SOFT WRIST RESTRAINTS. PT APPETITE WAS GOOD DURING LUNCH. THIS RN IS ENCOURAGING ORAL FLUID INTAKE. PT'S DAUGHTER IN THIS EDWARDO. PT HAS BEEN ON BEDREST ANDN REMAINS A LIFT PATIENT FOR TRANSFERS. PLAN IS FOR PLACEMENT. PT IS IN BED, CALL LIGHT IN REACH, BED IN LOW POSITION.
[2020-10-28 08:14] LABS: Anion Gap 8 mmol/L (6-16); Blood Urea Nitrogen 35 mg/dL (8-24); Bun/Creatinine Ratio 33.7 (12.0-20.0); CO2, Blood 23 mmol/L (21-32); Calcium, Blood 9.3 mg/dL (8.5-10.1); Chloride, Blood 120 mmol/L (98-108); Creatinine, Blood 1.04 mg/dL (0.60-1.20); Glomerular Filtration Rate >60 (60-); Glucose, Blood 121 mg/dL (70-99); Potassium, Blood 3.7 mmol/L (3.5-5.5); Sodium, Blood 151 mmol/L (136-145)
--- NOTE | 2020-10-28 12:35 | NUR ---
AGITATION: PATIENT IS MOANING, MUMBLING, PULLING AT LINES, AND FIDGETING IN THE BED. DISCUSSED WITH DR. HARTMAN. PLAN IS TO MEDICATE PER PAIN AND CALL BACK IF THE PATIENT CONTINUES TO DISPLAY SIGNS OF AGITATION.
--- NOTE | 2020-10-28 14:21 | NUR ---
REASSESSMENT: PATIENT NO LONGER MOANING AND MUMBLING TO HIMSELF. PATIENT CONTINUES TO FIDGET IN THE BED.
--- NOTE | 2020-10-28 17:32 | NUR ---
END OF SHIFT SUMMARY: PATIENT IN BED THROUGHOUT THE DAY. PATIENT PULLING AT RESTRAINTS, MUMBLING, AND MOANING AT TIMES. PATIENT UNABLE TO FOLLOW DIRECTIONS. BY THE AFTERNOON, PATIENT WAS ABLE TO TELL THE RN HIS FULL NAME. PATIENT UNABLE TO ANSWER OTHER QUESTIONS COHERENTLY OR CORRECTLY. PATIENT DOES TAKE MEDICATION AND PO INTAKE WITHOUT DIFFICULTY. DISCUSSED PATIENT'S PROGRESS WITH DR. HARTMAN. NO NEW ORDER FOR RESTAINTS. ONCE THE RESTRAINTS WERE REMOVED, PATIENT STAYED IN HIS BED. PATIENT DID NOT ATTEMPT TO GET OUT OF BED. IV LINES HIDDEN ON HIS LEFT ARM. PATIENT DID NOT ATTEMPT TO PULL THE LINES OUT. PATIENT MEDICATED FOR PAIN ONE TIME. PATIENT UNABLE TO REPORT OR DENY PAIN, BUT PATIENT BECAME INCREASINGLY AGITATED (INCREASED MUMBLING AND PULLING AT RESTRAINTS). ONCE PAIN MEDICATION WAS ABSORBED, PATIENT HAD DECREASED AGITATION.
--- NOTE | 2020-10-29 02:48 | NUR ---
AGITATION PT VERY AGITATED AND HAS NOT SLEPT SO FAR, VERY RESTLESS IN BED. PT DENIES PAIN. PT HAS PULLED OFF ATTENDS MULTIPLE TIMES AND TRIED TO GET OUT OF BED A COUPLE OF TIMES. IV HALDOL X1 NOW ORDERED PER DR. CID. WILL ADMINISTER THIS ONCE PHARMACY VERIFIES. CALL LIGHT WITHIN REACH, BED ALARM ON.
--- NOTE | 2020-10-29 05:03 | NUR ---
HOME HEALTH CARE RESPIRATORY THERAPIST SUMMARY PT A/O X0 OVERNIGHT. AGITATED OVERNIGHT, PT HAS NOT GOTTEN MUCH REST. ÁNGELA VEST PLACED ON 0405 PT KEPT GETTING OUT OF BED. IV HALDOL DID NOT HELP. PT SHAKES HIS HEAD NO WHEN ASKED IF HE'S IN PAIN. PT DOES NOT FOLLOW COMMANDS. VSS. CALL LIGHT WITHIN REACH, BED ALARM IN PLACE.
[2020-10-29 06:06] LABS: Anion Gap 5 mmol/L (6-16); Blood Urea Nitrogen 25 mg/dL (8-24); Bun/Creatinine Ratio 27.2 (12.0-20.0); CO2, Blood 26 mmol/L (21-32); Calcium, Blood 9.3 mg/dL (8.5-10.1); Chloride, Blood 119 mmol/L (98-108); Creatinine, Blood 0.92 mg/dL (0.60-1.20); Glomerular Filtration Rate >60 (60-); Glucose, Blood 111 mg/dL (70-99); Potassium, Blood 3.8 mmol/L (3.5-5.5); Sodium, Blood 150 mmol/L (136-145)
--- NOTE | 2020-10-29 07:54 | NUR ---
PT BP THIS AM WAS 84/48, RECHECKED SHORTLY AFTER AND BP WAS 95/58. DR MCKINNEY WAS CALLED AND SHE STATED TO FOLLOW UP WITH DR HARTMAN IF LOW BP CONTINUES. MINNIE IS PROVIDER FOLLOWING PT TODAY. WILL CONTINUE TO MONITOR PT AND BP.
[2020-10-29 08:57] LABS: BASOPHILS ABSOLUTE AUTO 0.06 K/mm3 (0.00-0.23); BASOPHILS PERCENT AUTO 1 % (0-2); EOSINOPHILS ABSOLUTE AUTO 0.43 K/mm3 (0.00-0.68); EOSINOPHILS PERCENT AUTO 4 % (0-6); Hematocrit 34.4 % (37.0-53.0); Hemoglobin 10.6 g/dL (13.5-17.5); IMMATURE GRAN ABSOLUTE AUTO 0.03 K/mm3 (0.00-0.10); IMMATURE GRAN PERCENT AUTO 0 % (0-1); LYMPHOCYTES PERCENT AUTO 21 % (21-46); MONOCYTES ABSOLUTE AUTO 0.76 K/mm3 (0.16-1.47); MONOCYTES PERCENT AUTO 8 % (4-13); Mean Corpuscular HGB 33.8 pg (26.0-34.0); Mean Corpuscular HGB Conc 30.8 g/dL (31.5-36.5); Mean Corpuscular Volume 110 fL (80-100); Mean Platelet Volume 11.2 fL (9.1-12.4); NEUTROPHILS ABSOLUTE AUTO 6.47 K/mm3 (1.96-9.15); NEUTROPHILS PERCENT AUTO 66 % (41-73); Platelet Count 316 K/mm3 (150-400); RDW Coefficient Variation 12.9 % (11.7-14.2); RDW Standard Deviation 51.1 fL (35.1-46.3); Red Blood Cell Count 3.14 M/mm3 (4.30-5.90); White Blood Cell Count 9.75 K/mm3 (4.00-11.30)
[2020-10-29 09:45] LABS: Source, Urine Clean Catch
[2020-10-29 10:01] LABS: Bilirubin, Urine Neg (Neg); Blood, Urine Neg (Neg); Glucose Qualitative, Urine Neg (Neg); Ketones, Urine Neg (Neg); Leukocyte Esterase, Urine Neg (Neg); Nitrite, Urine Neg (Neg); Protein, Urine Neg (Neg); Urobilinogen, Urine 2+ (Normal)
[2020-10-29 10:07] LABS: Appearance, Urine Clear (Clear); Color, Urine Yellow (P-Yellow)
--- NOTE | 2020-10-29 15:41 | NUR ---
PT BP ASSESSED PRIOR TO ADMINISTRATING SCHEDULED DOSE OF PROPANOLOL. BP WAS 91/68. DR HARTMAN WAS INFORMED OF BP AND HE STATED TO HOLD PROPANOLOL AND HE WILL LET THE RN KNOW IF HE WANTS TO TAKE FURTHER ACTION. AM AND AFTERNOON DOSES HELD SO FAR THIS SHIFT. D5 c 1/2 NS RUNNING @ 125 ML/HR CURRENTLY.
--- NOTE | 2020-10-29 19:24 | NUR ---
SHIFT SUMMARY PT IN ÁNGELA AT TIME OF ARRIVAL FOR SHIFT. PT REMAINED IN ÁNGELA T/O SHIFT DUE TO CONFUSION, HIGH RISK FOR FALLS, AND DIFFICULT TO REDIRECT AT TIMES. WRIST RESTRAINTS PLACED ON PT AT 1700 DUE TO CONSTANT PULLING AT HIS IV AND TRYING TO GET OUT OF BED. PT WAS RESTLESS IN BED FOR A MAJORITY OF THE DAY. ZYPREXA ORDERED PRN, ADMINISTERED X1, DID NOT SEEM TO HELP PT REST NOR DID TRAMADOL. PT BP WAS NOTED TO BE LOW THIS SHIFT. MINNIE WAS NOTIFIED, PROPANOLOL DOSES HELD PER HIS ORDERS. PT IS CURRENTLY LYING IN BED WITH RESTRAINTS. CALL LIGHT WITHIN REACH. REPORT GIVEN TO CHHAYA FLOR RN.
--- NOTE | 2020-10-30 04:34 | NUR ---
AVIATION TECHNICAL SYSTEMS SPECIALIST SUMMARY PT A/O X0. SLEPT ON AND OFF TONIGHT. DENIES PAIN, NO SOB NOTED. VSS. NO ACUTE CHANGES. BED ALARM ON, CALL LIGHT WITHIN REACH. [facility].
[2020-10-30 05:40] LABS: Anion Gap 7 mmol/L (6-16); Blood Urea Nitrogen 19 mg/dL (8-24); Bun/Creatinine Ratio 19.6 (12.0-20.0); CO2, Blood 25 mmol/L (21-32); Calcium, Blood 8.8 mg/dL (8.5-10.1); Chloride, Blood 113 mmol/L (98-108); Creatinine, Blood 0.97 mg/dL (0.60-1.20); Glomerular Filtration Rate >60 (60-); Glucose, Blood 115 mg/dL (70-99); Potassium, Blood 4.1 mmol/L (3.5-5.5); Sodium, Blood 145 mmol/L (136-145)
--- NOTE | 2020-10-30 18:42 | NUR ---
HE MAY KNOW HIS FIRST NAME BUT HE CAN'T TELL ME. HE DOESN'T SEEM TO UNDERSTAN ANY QUESTION OR DIRECTION. HIS SON VISITED BUT ESTHER COULD NOT TELL HIM HE KNEW HIM WHEN HIS SON ASKED. HE HAS BEEN POSEYED ALL DAY AND QASIM WRIST RESTRAINTS MOST OF THE DAY. HE IS INCONTINENT AND DIFFICULT TO CHANGE BECAUSE HIS INSTINCT IS TO PUSH AGAINST US AND DOESN'T UNDERSTAND OUR DIRECTION NOT TO. HE WAS FED LUNCH AND DINNER. HE REFUSED BREAKFAST. HIS PO INTAKE TODAY WAS POOR. IVF'S CONTINUE FOR SOME HYDRATION. I GAVE HIM ZYPREXA X1 FOR HIS CONFUSION THINKING I MAY BE ABLE TO TAKE HIS RESTRAINTS OFF BUT I FEEL HE STILL NEEDS THE RESTRAINTS. HE HAD 2 STOOLS TODAY AND 2 LACTULOSE DOSES.
[2020-10-31 05:01] LABS: Anion Gap 6 mmol/L (6-16); Blood Urea Nitrogen 17 mg/dL (8-24); Bun/Creatinine Ratio 17.6 (12.0-20.0); CO2, Blood 24 mmol/L (21-32); Calcium, Blood 8.8 mg/dL (8.5-10.1); Chloride, Blood 115 mmol/L (98-108); Creatinine, Blood 0.96 mg/dL (0.60-1.20); Glomerular Filtration Rate >60 (60-); Glucose, Blood 111 mg/dL (70-99); Potassium, Blood 3.9 mmol/L (3.5-5.5); Sodium, Blood 145 mmol/L (136-145)
--- NOTE | 2020-10-31 06:47 | NUR ---
SHIFT SUMMARY NO ACUTE CHANGES THIS SHIFT, MEDICATED 1X FOR DISCOMFORT @ BEDTIME, SEVERAL LIQUID STOOLS T/O SHIFT, BEDRESTING AT THIS TIME, CALL LIGHT IN REACH, WILL CONT TO MONITOR UNTIL REPORT GIVEN TO DAY RN.
--- NOTE | 2020-10-31 16:47 | NUR ---
10/31/20 s/w Daughter Bradley Valencia is meeting with a information developer to get guardianship. 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 I offered to provide this documentation to Maintenance Apprentice with Chelsea permission. Asked for Bradley to call me. s/w Kaylaflakita Hankinsfelisha, , Financials are to be completed by 45 days, November 20 is 45 days. Evaluation is scheduled for FridayNovember 07 at 1:15 pm, face time. She will call me to complete this evaluation. cp 10/30/[address] Young, patient quite and agreeable. She is addressing his continued need of restrainsts, Discussed his baseline mentation fluctuated, most halina very slow to answer questions, or does not recognize where he is, other times recongnizes family. Was mostly bedbound since he was admitted, not wanting to work with PT OT. Last week started getting up out of bed, not directable. Still waiting for Medicaid approval for placement. Was reviewed by Herve Gustafson. I will follow up with Kayla Gallardo Friday to document receipt of chart notes and establish date for finacials to be complete. cp
--- NOTE | 2020-10-31 16:55 | NUR ---
SHIFT SUMMARY PATIENT DENIES PAIN, NAUSEA, AND SHORTNESS OF BREATH. PATIENT ORIENTED TO SELF AND SOMETIMES FAMILY. FREQUENT LACTULOSE STOOLS. PATIENT VERY STIFF AND RESISTIVE WITH PERSONAL CARE AND REPOSITION. 2 STAFF REQUIRED. PUSHING FLUIDS AND ENCOURAGING PO INTAKE WITH LITTLE SUCCESS. PATIENT'S DAUGHTER ABLE TO CONVINCE HIM TO EAT ONE MAGIC CUP TODAY WITH FREQUENT REDIRECTION. ÁNGELA AND SOFT WRIST RESTRAINTS IN PLACE TO FOR FALL RISK AND IV PROTECTION. DAUGHTER HAS REQUESTED UPDATED GUARDIANSHIP LETTER.
--- NOTE | 2020-10-31 21:36 | NUR ---
VERIFIED VIDEO MONITORING CALLED VIDEO PIANO ACCOMPANIST TO VERIFY CAMERAS ARE ON FOR THIS PT
--- NOTE | 2020-11-01 01:42 | NUR ---
PT AGITATED NOT SLEEPING, HE IS HALLUCINATING. HE IS TALKING TO PEOPLE WHO ARE NOT IN THE ROOM. HE IS PERIODICALLY KICKING HIS LEGS AND ATTEMPTING TO EXIT THE BED. I HAVE MEDICATED ONE TIME FOR AGITATION. I HAVE ALSO MEDICATED ONE TIME FOR PAIN, AWAITING EFFECT.
--- NOTE | 2020-11-01 04:07 | NUR ---
SHIFT SUMMARY ADMITTED FOR HYPONATREMIA/AMS. FULL CODE. HIS SON SEEKS GUARDIANSHIP. ÁNGELA AND WRIST RESTRAINTS IN PLACE DUE TO IMPULSIVENESS, CONFUSION, AND HALLUCINATIONS. HE DOES ATTEMPT TO EXIT HIS BED. HX OF FALLS. ASPIRATION PRECAUTIONS. D5 1/2 NS INFUSING ORDERED. 2 PERSON CHANGE HE DOES NOT FOLLOW DIRECTION AND RESISTS FROM CONFUSION. HE DID HALLUCINATE AND WAS MODERATELY AGITATED FROM BEGINNING OF SHIFT. I DID MEDICATE FOR AGITATION 1 X TO NO EFFECT. I DID MEDICATE FOR PAIN 1 X, WHICH MAY HAVE HELPED - HE FELL ASLEEP. NO NEW CONCERNS THIS SHIFT
--- NOTE | 2020-11-01 17:44 | NUR ---
SHIFT SUMMARY PATIENT DENIES PAIN, NAUSEA, AND SHORTNESS OF BREATH. PATIENT CONTINUES TO HAVE POOR PO INTAKE AND OFTEN REFUSES FOOD AND FLUIDS. REFUSED MEDICATION THIS AM. ÁNGELA AND BILATERAL WRIST RESTRAINTS IN PLACE. ORIENTED ONLY TO SELF, WAS ABLE TO RECOGNIZE HIS DAUGHTER AT TIMES WHEN SHE VISITED.
--- NOTE | 2020-11-01 19:24 | NUR ---
VERIFIED CAMERA VERIFIED VIDEO MONITORING IS IN PLACE
--- NOTE | 2020-11-02 05:23 | NUR ---
SHIFT SUMMARY IN CHART = HARDCOPY
[2020-11-02 06:08] LABS: Anion Gap 6 mmol/L (6-16); Blood Urea Nitrogen 11 mg/dL (8-24); Bun/Creatinine Ratio 14.2 (12.0-20.0); CO2, Blood 24 mmol/L (21-32); Calcium, Blood 8.6 mg/dL (8.5-10.1); Chloride, Blood 112 mmol/L (98-108); Creatinine, Blood 0.77 mg/dL (0.60-1.20); Glomerular Filtration Rate >60 (60-); Glucose, Blood 92 mg/dL (70-99); Potassium, Blood 3.4 mmol/L (3.5-5.5); Sodium, Blood 142 mmol/L (136-145)
--- NOTE | 2020-11-02 06:10 | NUR ---
DOWNTIME RESTRAINT CHARTING IN PT CHART - HARDCOPY
--- NOTE | 2020-11-02 17:59 | NUR ---
PT AOX1-2 AND HAS BEEN MUCH MORE ALERT TODAY. PT HAS BEEN TAKING SPOON THICKENED WELL. PT IS ALSO ALLOWING SOME FOOD TO BE FED TO HIM AT THIS TIME. PT CONTINUE TO BE IMPULSIVE AND HAS RESTRAINTS IN PLACE. WILL CONITINUE TO MONITOR.
--- NOTE | 2020-11-02 19:00 | NUR ---
ADMIT: 09/11/20 DISCHARGE: DX: hypoonatremia CC: cpeabody Page 5 VIDHI-CHERYL KEEN [phone] WORKS 12 HOURS A DAY. ONLY HOME IN EVENING.- not activily participating in his discharge planning as of 10/26/20. cp VIDHI- JAROCHO , SON, DAUGHTER KARYNA, Medicaid bilingual case manager - Kayla Gallardo [phone] fax [phone] 11/02/20 Yolanda MCM s/w Herbert at [facility] today, she has concerns with change of medications at discharge and that she will be seeing a different person once discharged. Yolanda discussed possibility of Hospice at discharge. Herbert agreed to to placement if Hospice is the plan. cp 11/01/20 Dr Young has concerns that Josue will not be able to support his own fluid needs with out IV as an out patient. Plans to speak with family regarding possibility of Hospice at discharge. cp 10/31/20 s/w Daughter Jarocho Valencia is meeting with a bone grinder to get guardianship. 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 I offered to provide this documentation to Sand System Operator with Chelsea permission. Asked for Jarocho to call me. s/w Kayla Paulina, , Financials are to be completed by 45 days, November 20 is 45 days. Evaluation is scheduled for FridayNovember 07 at 1:15 pm, face time. She will call me to complete this evaluation. cp
[2020-11-03 05:21] LABS: Anion Gap 8 mmol/L (6-16); Blood Urea Nitrogen 10 mg/dL (8-24); Bun/Creatinine Ratio 12.5 (12.0-20.0); CO2, Blood 24 mmol/L (21-32); Calcium, Blood 9.2 mg/dL (8.5-10.1); Chloride, Blood 109 mmol/L (98-108); Glomerular Filtration Rate >60 (60-); Glucose, Blood 108 mg/dL (70-99); Potassium, Blood 3.5 mmol/L (3.5-5.5); Sodium, Blood 141 mmol/L (136-145)
--- NOTE | 2020-11-03 18:29 | NUR ---
PT LABILE TODAY. SOME PLEASANT SOME IRRITABLE. DID ATTEMPT TO HIT AND KICK ME AND OTHER STAFF. SEVERAL TIMES DURING ATTENDS CHANGE. NO C/O PAIN. NO NEW CONCERNS. RESTRAINTS RENEWED. VEST AND SOFT WRIST. NO NEW CONCERNS AT THIS TIME. BED IN LOW POSITION, CALLLITE IN REACH, BED ALARM ON FOR SAFETY ALONG WITH RESTRAINTS.
--- NOTE | 2020-11-04 04:36 | NUR ---
PT continues confused & speech is rambling & nonsensical. He continiued to require restraints bilat wrist & haylie vest to prevent falls & injury.
[2020-11-04 05:03] LABS: BASOPHILS ABSOLUTE AUTO 0.05 K/mm3 (0.00-0.23); BASOPHILS PERCENT AUTO 1 % (0-2); EOSINOPHILS ABSOLUTE AUTO 0.29 K/mm3 (0.00-0.68); EOSINOPHILS PERCENT AUTO 4 % (0-6); Hematocrit 32.4 % (37.0-53.0); Hemoglobin 10.5 g/dL (13.5-17.5); IMMATURE GRAN ABSOLUTE AUTO 0.03 K/mm3 (0.00-0.10); IMMATURE GRAN PERCENT AUTO 0 % (0-1); LYMPHOCYTES ABSOLUTE AUTO 1.96 K/mm3 (0.84-5.20); LYMPHOCYTES PERCENT AUTO 28 % (21-46); MONOCYTES ABSOLUTE AUTO 0.77 K/mm3 (0.16-1.47); MONOCYTES PERCENT AUTO 11 % (4-13); Mean Corpuscular HGB 32.8 pg (26.0-34.0); Mean Corpuscular HGB Conc 32.4 g/dL (31.5-36.5); Mean Corpuscular Volume 101 fL (80-100); NEUTROPHILS PERCENT AUTO 56 % (41-73); Platelet Count 289 K/mm3 (150-400); RDW Coefficient Variation 12.7 % (11.7-14.2); RDW Standard Deviation 47.7 fL (35.1-46.3)
[2020-11-04 05:22] LABS: Alanine Aminotransfer (ALT/SGP 33 U/L (12-78); Albumin/Globulin Ratio 0.4 (0.8-1.8); Alk Phos 306 U/L (50-136); Anion Gap 8 mmol/L (6-16); Aspartate Aminotrans (AST/SGOT 63 U/L (12-37); Bilirubin, Total 0.7 mg/dL (0.1-1.0); Blood Urea Nitrogen 15 mg/dL (8-24); Bun/Creatinine Ratio 19.6 (12.0-20.0); CO2, Blood 22 mmol/L (21-32); Calcium, Blood 8.8 mg/dL (8.5-10.1); Chloride, Blood 112 mmol/L (98-108); Creatinine, Blood 0.76 mg/dL (0.60-1.20); Globulin, Blood 4.9 g/dL (2.2-4.0); Glomerular Filtration Rate >60 (60-); Glucose, Blood 112 mg/dL (70-99); Potassium, Blood 3.8 mmol/L (3.5-5.5); Sodium, Blood 142 mmol/L (136-145); Total Protein, Blood 6.9 g/dL (6.4-8.2)
--- NOTE | 2020-11-04 18:15 | NUR ---
PT SLEPT MOST OF MORNING. STARTED DAY ABOUT 1100 TODAY. GIRLFRIEND IN TO SEE TODAY. HE HAPPY VISITING WITH HER. LOTS TALKING. NO NEW CONCERNS TODAY. NO HITTING STAFF TODAY. MOSTLY PLEASANT . BED IN LOW POSITION, CALL LITE IN REACH, BED ALARM ON FOR SAFETY. VEST FOR SAFETY, NOT ABLE TO FOLLOW DIRECTION.
--- NOTE | 2020-11-05 01:51 | NUR ---
60 year old Male continues confused & he is hard of hearing & he has flight of ideas & confabultion. Poor memory he is incontient of bowel & bladder. Cooperative with meds & therapy. PT nonmobile has haylie vest to prevent falls & PT unaware of his deficits. He had low grade temp & occ nonprod cough. On modified diet he us able to feed seld but he can be very messy. PT denies need to toilet & will not admit when he has soiled or wet attends. 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 He has been deemed unable to handle his own affairs & DR Cook asks for Guardianship. Medicated with Ultram 50 mg x 1 for gen pain with helpful effect.
--- NOTE | 2020-11-05 11:15 | NUR ---
PT PLEASANT THIS AM. CONFUSED. CANNOT TELL ME DATE, HIS , ETC. DOES NOT REMEMBER HAS GIRLFRIEND THAT WAS IN [place]. DOES NOT FOLLOW INST. FULL BED BATH SHAVE AND BED CHANGE. PT LAKSHMI WELL. H/R REG, NO MURMER NOTED. PT PULLED IV THIS AM. DR ORDER TO LEAVE OUT. LUNGS CLEAR, RESP EASY, UNLABORED. ON R.A. BT X4 LAST BM THIS AM. VIODS INCONT. IN ATTENDS. CDI. PT UNABLE TO FOLLOW INST. VEST ON FOR SAFETY. BED IN LOW POSITION, CALL LITE IN REACH, BED ALARM ON FOR SAFETY
--- NOTE | 2020-11-05 17:11 | NUR ---
PT HAS BEEN PRETTY COOPERATIVE TODAY. GIRLFRIEND IN TO VISIT TODAY. PAIN IN RT SHOULDER , MED PER EMAR. NO NEW CONCERNS AT THIS TIME. PENDING SNF PLACEMENT. BED I LOW POSITION, CALL LITE IN REACH, BED ALARM ON FOR SAFETY. VEST ON FOR SAFETY. IS NOT REDIRECTABLE. DOES NOT REMEMBER TO CALL FOR HELP . HIGH FALL RISK.
--- NOTE | 2020-11-06 05:13 | NUR ---
SUMMARY: PT ORIENTED TO SELF AND "[facility]" BUT CONFUSED OTHERWISE. HE'S MOSTLY ABLE TO SPECIFY NEEDS BUT HAS SOME TROUBLE FINDING THE CORRECT WORDS. HE'S BEEN PLEASANT AND COOPERATIVE W/CARE W/ATTENDS CHANGED PRN FOR INCONTINENCE. PT ON LACTULOSE AND HAD X1 LARGE BM THIS SHIFT, LINEN CHANGED FOR SATURATION W/URINE. ÁNGELA VEST REMAINS IN PLACE FOR FALL RISK, DIFFICULTY FOLLOWING INSTRUCTION AND SOME PERSISTANT TROUBLE REDIRECTING. BED ALARM ON FOR HEIGHTENED SAFETY. NECTAR THICK LIQ'S AND PILLS TOLERATED WHOLE IN APPLESAUCE. PT MEDICATED W/ULTRAM FOR R.SHOULDER PAIN. NO ACUTE CHANGES, VSS AND AFEBRILE. WCTM AND REPORT TO DAY RN.
--- NOTE | 2020-11-06 16:49 | NUR ---
SHIFT SUMMARY PT RESTING QUIETLY AT START OF SHIFT. WOKE EASILY FOR CARE. PT IS ORIENTED TO SELF AND FAMILY, BUT OTHERWISE CONFUSED. TOOK LACTULOSE THIS AM, BUT WOULD NOT TAKE ALL MEDICATIONS WHEN OFFERED. PT WILL CO-OP WHEN HE GETS AROUND TO IT. PT ABLE TO GET OUT OF ÁNGELA VEST BRIEFLY, THINKING HE WAS GOING TO GO OUT TO [facility]. FAMILY IN TO VISIT THIS AFTERNOON. FAMILY REPORTED PT WAS NOT BEING VERY NICE TO THEM TODAY. ALSO CONFUSED TO WHO THEY WERE. PT IS UNDIRECTABLE. INCONTINENT OF BOWEL AND BLADDER. DR FORBES IN TO SEE PT THIS AM. PT RESTING QUIETLY AT THIS TIME. BED ALARM ON FOR SAFETY. CALL LT IN REACH.
--- NOTE | 2020-11-06 18:06 | NUR ---
ADMIT: 11/05/20 DISCHARGE: DX: Dehydration CC: ADMIT: 08/10/20 DISCHARGE:08/12/20 DX: RIGHT HIP FRACTURE CC: KWILCOX SHOSHANA CALL: RESIDENCE: Home with spouse CAREGIVER: Delfin Martinez, Spouse / Partner, DX: CKD-stage 3, HTN, IBS, Lupus, DM, see list DME: compression stockings, DM supplies CCM: Referral 08/2020 HOME HEALTH: [facility]- 2020 SUMMARY: Admit 11/05/20 11/06/20 Jaime from Palliative met with today, Janice stopped eating about a month ago, she was 140 lbs, now down to 78 lbs. If no improvement at this hospitalization is considering home with hospice. cp Dr Funk is considering discharge options based off palliative care discussion. cp 1. Severe dehydration with hypernatremia and acute kidney injury. Give half-normal saline with 20 of K at 150 mL per hour x2 L. Continue to monitor renal function. Avoid nephrotoxic agents.
--- NOTE | 2020-11-06 18:51 | NUR ---
11/06/20 sera on and off of restrainsts. Plan for assessment to be completed 1:15 by myself and case work aide Kayla Gallardo. cp
[2020-11-07 04:55] LABS: BASOPHILS ABSOLUTE AUTO 0.06 K/mm3 (0.00-0.23); BASOPHILS PERCENT AUTO 1 % (0-2); EOSINOPHILS PERCENT AUTO 3 % (0-6); Hematocrit 31.7 % (37.0-53.0); Hemoglobin 10.4 g/dL (13.5-17.5); IMMATURE GRAN ABSOLUTE AUTO 0.03 K/mm3 (0.00-0.10); IMMATURE GRAN PERCENT AUTO 0 % (0-1); LYMPHOCYTES ABSOLUTE AUTO 2.41 K/mm3 (0.84-5.20); LYMPHOCYTES PERCENT AUTO 27 % (21-46); MONOCYTES ABSOLUTE AUTO 0.88 K/mm3 (0.16-1.47); MONOCYTES PERCENT AUTO 10 % (4-13); Mean Corpuscular HGB 32.9 pg (26.0-34.0); Mean Corpuscular HGB Conc 32.8 g/dL (31.5-36.5); Mean Corpuscular Volume 100 fL (80-100); Mean Platelet Volume 10.3 fL (9.1-12.4); NEUTROPHILS ABSOLUTE AUTO 5.16 K/mm3 (1.96-9.15); NEUTROPHILS PERCENT AUTO 58 % (41-73); Platelet Count 276 K/mm3 (150-400); RDW Coefficient Variation 12.6 % (11.7-14.2); RDW Standard Deviation 46.8 fL (35.1-46.3); Red Blood Cell Count 3.16 M/mm3 (4.30-5.90); White Blood Cell Count 8.84 K/mm3 (4.00-11.30)
--- NOTE | 2020-11-07 05:00 | NUR ---
SUMMARY: PT ORIENTED TO SELF, SURROUNDINGS AND SIGNIFICANT OTHER BUT IS PAMUNKEY AND RESPONDS TO Q'S NONSENSICALLY AT TIMES. HE CONT'S TO HALLUCINATE ITERMITTENTLY AND HAS SEEN "A MEOW MEOW" IN HIS ROOM TONIGHT. PT'S BEEN PLEASANT AND COOPERATIVE W/CARE BUT DID REFUSE LIQUACEL W/HS MEDS. ATTENDS CHANGED PRN FOR URINARY INCONTINENCE AND HE USED BEDPAN FOR X1 XL BM. PT RECIEVING LACTULOSE PER EMAR. HE DENIES PAIN AND ALL OTHER COMPLAINTS. HE REMAINS IN ÁNGELA VEST RESTRAINT FOR FORGETFULLNESS, IMPULSIVITY AND SOME PERSISTANT DIFFICULTY FOLLOWING INSTRUCTION. NO ACUTE CHANGES, VSS/AFEBRILE. WCTM AND REPORT TO DAY RN.
[2020-11-07 05:12] LABS: Alanine Aminotransfer (ALT/SGP 25 U/L (12-78); Albumin/Globulin Ratio 0.4 (0.8-1.8); Alk Phos 275 U/L (50-136); Anion Gap 6 mmol/L (6-16); Aspartate Aminotrans (AST/SGOT 52 U/L (12-37); Bilirubin, Total 0.7 mg/dL (0.1-1.0); Blood Urea Nitrogen 11 mg/dL (8-24); Bun/Creatinine Ratio 12.9 (12.0-20.0); CO2, Blood 27 mmol/L (21-32); Calcium, Blood 8.9 mg/dL (8.5-10.1); Chloride, Blood 104 mmol/L (98-108); Creatinine, Blood 0.85 mg/dL (0.60-1.20); Globulin, Blood 4.7 g/dL (2.2-4.0); Glomerular Filtration Rate >60 (60-); Glucose, Blood 92 mg/dL (70-99); Magnesium, Blood 1.6 mg/dL (1.6-2.4); Phosphorus, Blood 3.5 mg/dL (2.5-4.9); Potassium, Blood 3.7 mmol/L (3.5-5.5); Sodium, Blood 137 mmol/L (136-145); Total Protein, Blood 6.7 g/dL (6.4-8.2)
--- NOTE | 2020-11-07 18:18 | NUR ---
SHIFT SUMMARY PT REMAINS MOSTLY UNCHANGED FROM YESTERDAY. ALERT AND AWAKE MOST OF THE DAY. ATTEMPTS TO GET OOB TO LEAVE "SOMEWHERE" OFF AND ON THRU OUT THE DAY. PT CONFUSED AND HIGH FALL RISK. REMAINS IN VEST RESTRAINT WHEN STAFF NOT IN RM. DR FORBES HERE TO SEE PT TODAY, INCREASING LACTULOSE TO HELP WITH AMMONIA LEVEL. PT AGREEABLE TO TAKE LACTULOSE, BUT DOES NOT WANT DRINK HIS PROTEIN SHAKES. NO C/O PAIN. INCONTINENT OF BOWEL AND BLADDER. BED ALARM ON FOR SAFETY. CALL LT IN REACH.
--- NOTE | 2020-11-07 19:27 | NUR ---
11/07/20 completed Medicaid assessement by phone with Kayla Gallardo, Medicaid piano case and bench assembler and Josue. Though Josue appeared to answer questions appropriatley most of the time, his answers were not truthful to his current condition. I believe care questions were answered as he remembers himself to be prior to his hospitalization. He is now bed bound, requiring full care at this time. I will speak with Sasha again on . I see that Josue has not worked with physical therapy since 10-11-20. I will ask Dr if he would like to have a PT evaluation to review Leoncio current condition for mobility for accurate assessment information for Sasha on . cp
--- NOTE | 2020-11-08 04:50 | NUR ---
BUSINESS ADMINISTRATION PROGRAM CHAIR SUMMARY PT A&O TO SELF ONLY, CONFUSED AND IS DIFFICULT TO REDIRECT. PT NOT ABLE TO FOLLOW SIMPLE INSTRUCTIONS FROM STAFF. PT CONT ON ÁNGELA VEST, PT CONT TO BE IMPULSIVE AND CONT TO ATTEMPT TO BED EXIT. NO C/O PAIN OR ANY DISCOMFORT. NO C/O CP, SOB, OR N&V. PT CURRENTLY RESTING IN BED AT THIS TIME. BED AT LOWEST POSITION W/ ALARM ON, CALL LIGHT WITHIN REACH.
--- NOTE | 2020-11-08 16:12 | NUR ---
PATIENT HAS BEEN PLEASANTLY CONFUSED. ALERT AND ORIENTED TO SELF AND PLACE. ONE PERSON ASSIST TO BATHROOM. INCONT/CONT OF BLADDER AND BOWEL. REDIRECTABLE. TAKES MEDICATION WHOLE WITH APPLESAUCE WITHOUT TROUBLE. VITALS STABLE. 1400 DOSE OF LACTULOSE WAS HELD DUE TO 3 LOOSE BM's BY 1200. PATIENT RESTING IN BED AT THIS TIME. NO ACUTE CHANGES TO REPORT OF. CALL LIGHT WITHIN REACH.
--- NOTE | 2020-11-08 22:39 | NUR ---
2026 PT LYING IN BED, REPORTS A LITTLE SOB THAT INCREASES WITH EXERTION, ON RA AT 96%. NO OTHER APPARENT SIGNS OF DISTRESS. CALL LIGHT IS IN REACH. BED ALARM IS ON. ÁNGELA IS ON, PT DOES NOT CALL FOR ASSIST AND IS AAO X 1-2 AND UNABLE TO BE REORIENTED TO STAY IN BED AND CALL FOR ASSIST. PT IS A HIGH FALL RISK.
--- NOTE | 2020-11-09 00:30 | NUR ---
PT LYING IN BED, EYES CLOSED, WAKES EASILY TO VERBAL STIMULI. NO APPARENT SIGNS OF DISTRESS. CALL LIGHT IS IN REACH. ÁNGELA IN PLACE. BED ALARM IS ON. PT WILL OCCASIONALLY ATTEMPT TO SIT ON SIDE OF BED AND GET UP.
--- NOTE | 2020-11-09 02:53 | NUR ---
PT LYING IN BED, EYES CLOSED, WAKES EASILY TO VERBAL STIMULI. PT DENIES NEED FOR ANYTHING AT THIS TIME. PT HAS NOT VOIDED SO FAR THIS SHIFT, PT HAS REPEATEDLY DECLINED THE NEED TO USE THE URINAL. AT THE NEXT CHECK WILL TRY TO ENCOURAGE THE PT TO USE THE URINAL OR GET UP TO PEE, IF STILL DOES NOT VOID, WE WILL GET A BLADDER SCAN AND EVALUATE FROM THERE. NO OTHER APPARENT SIGNS OF DISTRESS. CALL LIGHT IS IN REACH. ÁNGELA IS IN PLACE. BED ALARM IS ON.
--- NOTE | 2020-11-09 04:04 | NUR ---
PT LYING IN BED, EYES CLOSED, APPEARS TO BE RESTING, BREATHING IS EVEN, UNLABORED. NO APPARENT SIGNS OF DISTRESS. CALL LIGHT IS IN REACH. ÁNGELA IS IN PLACE.
--- NOTE | 2020-11-09 04:05 | NUR ---
PT IS AAO X 2-3. REPORTS A LITTLE SOB THAT INCREASES WITH EXERTION, ON RA AT 96%. PT ATTEMPTS TO GET OUT OF BED REPEATEDLY WITHOUT CALLING FOR ASSISTANCE AND IS NOT VERY STEADY ON HIS FEET. PT IS UNABLE TO BE REORIENTED TO USE THE CALL LIGHT FOR ASSIST AND NOT GET OUT OF BED, ÁNGELA IS IN PLACE AT THIS TIME.
[2020-11-09 05:06] LABS: Anion Gap 4 mmol/L (6-16); Blood Urea Nitrogen 11 mg/dL (8-24); Bun/Creatinine Ratio 14.2 (12.0-20.0); CO2, Blood 29 mmol/L (21-32); Calcium, Blood 8.7 mg/dL (8.5-10.1); Chloride, Blood 103 mmol/L (98-108); Creatinine, Blood 0.78 mg/dL (0.60-1.20); Glomerular Filtration Rate >60 (60-); Glucose, Blood 91 mg/dL (70-99); Potassium, Blood 3.5 mmol/L (3.5-5.5); Sodium, Blood 136 mmol/L (136-145)
--- NOTE | 2020-11-09 06:08 | NUR ---
PT LYING IN BED, EYES CLOSED, APPEARS TO BE RESTING. BREATHING IS EVEN, UNLABORED. NO APPARENT SIGNS OF DISTRESS. CALL LIGHT IS IN REACH. ÁNGELA IS IN PLACE. BED ALARM IS ON. NO OTHER CHANGES THIS SHIFT.
--- NOTE | 2020-11-09 16:32 | NUR ---
PT IS ALERT ORIENTED X2 TO SELF AND FAMILY. THE PT IS UP WITH MINIMAL ASSIST TO THE BATHROOM AND TO THE CHAIR, THE PT HAS BEEN CALM AND COOPERATIVE T/O THE DAY, PT APPEARS TO BE BREATHING EASILY ON RA, THE PT WAS TAKEN OUT OF THE VEST RESTRAINT, TODAY, BED ALARM AND CHAIR ALARM IN USE, THE PTS DAUGHTER WAS IN TO VISIT WITH THE PT TODAY, CALL LIGHT IN REACH, WILL CONTINUE TO MONITOR AND ASSESS FOR CHANGES
--- NOTE | 2020-11-10 06:23 | NUR ---
SHIFT SUMMARY PT IS A 60 Y/O MALE, ADMITTED FOR HYPONATREMIA AND CURRENTLY AWAITING PLACEMENT. A&0 X SELF, 1PA C FWW, INCONTINENT. NO C/O PAIN, NAUSEA OR SOB. PT SLEPT WELL THROUGH THE NIGHT. VITAL SIGNS STABLE. NO ACUTE CHANGES IN PT CONDITION NOTED. WILL CONTINUE TO MONITOR AND TREAT PER EMAR UNTIL HAND OFF TO DAY SHIFT RN.
--- NOTE | 2020-11-10 17:26 | NUR ---
SHIFT SUMMARY PATIENT MORE ALERT THIS SHIFT. PATIENT UP TO BATHROOM WITH FWW. PATIENT FORGETS TO CALL BEFORE GETTING UP. PATIENT REMINDED OF NEED TO CALL FOR SAFETY AND TO NOT SET OFF BED/CHAIR ALARMS. PATIENT'S DIET ADVANCED THIS SHIFT BY SPEECH THERAPY. PATIENT UP IN CHAIR THIS AM, THEN BACK IN BED THIS AFTERNOON.
--- NOTE | 2020-11-10 17:45 | NUR ---
11/09/20 s/w Kayla Gallardo, SANTO, , discussed PT OT evaluations, Kevin has improved in mobility and self care, still very confused and unable to stay on track for initiating self care. Mentation changes during the day, more confused at times than other times. PT OT recommendation is [facility], business systems advisor caregiver. I will fax her copies of PT OT evals. She will send me more questions if she has them. NO ETA for discharge at this time. I will continue to follow for discharge planning. cp
--- NOTE | 2020-11-11 04:26 | NUR ---
SHIFT SUMMARY PATIENT HAD NO ACUTE CHANGES OBSERVED. AXOX 2 WITH CONFABULATORY SPEECH AT TIMES. ONE ASSIST TO BSC. TAKES MEDICATION WHOLE WITH APPLESAUCE. NO IV ACCESS. REPORTED BACK PAIN X ONE AND PO ULTRAM 50 MG GIVEN PER EMAR. VSS/AFEBRILE. DENIES SOB AND N/V. WATCHED TV FIRST FEW HOURS OF SHIFT. OOB X ONE ACTIVATING BED ALARM. NOT ABLE TO REORIENT AT THIS TIME. CALL LIGHT IN REACH. BED IN LOWEST POSITION AND ALARM ACTIVATED. WILL CONTINUE TO MONITOR UNTIL DAY SHIFT NURSE ASSUMES CARE.
[2020-11-11 05:06] LABS: BASOPHILS ABSOLUTE AUTO 0.04 K/mm3 (0.00-0.23); BASOPHILS PERCENT AUTO 1 % (0-2); EOSINOPHILS PERCENT AUTO 2 % (0-6); Hematocrit 32.7 % (37.0-53.0); Hemoglobin 10.8 g/dL (13.5-17.5); IMMATURE GRAN ABSOLUTE AUTO 0.02 K/mm3 (0.00-0.10); IMMATURE GRAN PERCENT AUTO 0 % (0-1); LYMPHOCYTES ABSOLUTE AUTO 2.41 K/mm3 (0.84-5.20); LYMPHOCYTES PERCENT AUTO 28 % (21-46); MONOCYTES ABSOLUTE AUTO 0.79 K/mm3 (0.16-1.47); MONOCYTES PERCENT AUTO 9 % (4-13); Mean Corpuscular HGB 32.4 pg (26.0-34.0); Mean Corpuscular Volume 98 fL (80-100); Mean Platelet Volume 10.5 fL (9.1-12.4); NEUTROPHILS PERCENT AUTO 60 % (41-73); Platelet Count 268 K/mm3 (150-400); RDW Coefficient Variation 12.4 % (11.7-14.2); RDW Standard Deviation 44.8 fL (35.1-46.3); Red Blood Cell Count 3.33 M/mm3 (4.30-5.90); White Blood Cell Count 8.56 K/mm3 (4.00-11.30)
[2020-11-11 05:42] LABS: Anion Gap 7 mmol/L (6-16); Blood Urea Nitrogen 12 mg/dL (8-24); Bun/Creatinine Ratio 14.2 (12.0-20.0); CO2, Blood 28 mmol/L (21-32); Calcium, Blood 8.8 mg/dL (8.5-10.1); Chloride, Blood 103 mmol/L (98-108); Creatinine, Blood 0.85 mg/dL (0.60-1.20); Glomerular Filtration Rate >60 (60-); Glucose, Blood 97 mg/dL (70-99); Magnesium, Blood 1.7 mg/dL (1.6-2.4); Potassium, Blood 3.6 mmol/L (3.5-5.5); Sodium, Blood 138 mmol/L (136-145)
--- NOTE | 2020-11-11 15:37 | NUR ---
ALERT TO SELF. PLEASANTLY CONFUSED. REFUSED SOME MEDS "HE'LL DO IT AT HOME." UNABLE TO CONVINCE PATIENT HE WASN'T LEAVING TODAY. ONE PERSON ASSIST. UNLABORED RESPIRATIONS. UP IN CHAIR FOR MEALS. NO ACUTE CHANGES. AWAITING PLACEMENT. [facility]
--- NOTE | 2020-11-11 18:10 | NUR ---
MOTHER VISITING PATIENT.
--- NOTE | 2020-11-12 05:23 | NUR ---
SHIFT SUMMARY PATIENT HAD NO ACUTE CHANGES OBSERVED. AXOX 2 AND ONE ASSIST TO BATHROOM. TAKES MEDICATION IN APPLESAUCE. NO OOB EVENTS. COOPERATIVE WITH CARE. DENIES PAIN, SOB, AND N/V. VSS/AFEBRILE. CALL LIGHT IN REACH. BED IN LOWEST POSITION. WILL CONTINUE TO MONTIOR UNTIL DAY SHIFT NURSE ASSUMES CARE.
--- NOTE | 2020-11-12 17:50 | NUR ---
ALERT TO SELF AND SOMETIMES PLACE. ALERT TO FAMILY. ONE PERSON ASSIST. COOPERATIVE. VISIT BY S.O. REFUSES SOME MEDS, BUT GENERALLY COOPERATIVE WITH CARE. NO ACUTE CHANGES. WCTM
--- NOTE | 2020-11-13 04:11 | NUR ---
SHIFT SUMMARY PATIENT HAD NO ACUTE CHANGES OBSERVED. AXOX 2 AND ONE ASSIST TO BATHROOM. NO IV ACCESS. REPORTED ABDOMEN PAIN X ONE AND OXYCODONE 2.5 MG GIVEN PER EMAR. DENIES SOB AND N/V. BP 93/55 AND INDERAL 20 MG HELD FOR SBP<100. NO OOB EVENTS. CALL LIGHT IN REACH. BED IN LOWEST POSITION AND ALARM ACTIVATED. WILL CONTINUE TO MONITOR UNTIL DAY SHIFT NURSE ASSUMES CARE.
[2020-11-13 05:08] LABS: BASOPHILS ABSOLUTE AUTO 0.05 K/mm3 (0.00-0.23); BASOPHILS PERCENT AUTO 1 % (0-2); EOSINOPHILS ABSOLUTE AUTO 0.25 K/mm3 (0.00-0.68); EOSINOPHILS PERCENT AUTO 3 % (0-6); Hematocrit 31.7 % (37.0-53.0); Hemoglobin 10.7 g/dL (13.5-17.5); IMMATURE GRAN ABSOLUTE AUTO 0.03 K/mm3 (0.00-0.10); IMMATURE GRAN PERCENT AUTO 0 % (0-1); LYMPHOCYTES ABSOLUTE AUTO 2.42 K/mm3 (0.84-5.20); LYMPHOCYTES PERCENT AUTO 28 % (21-46); MONOCYTES PERCENT AUTO 9 % (4-13); Mean Corpuscular HGB 32.7 pg (26.0-34.0); Mean Corpuscular HGB Conc 33.8 g/dL (31.5-36.5); Mean Corpuscular Volume 97 fL (80-100); Mean Platelet Volume 10.3 fL (9.1-12.4); NEUTROPHILS ABSOLUTE AUTO 5.09 K/mm3 (1.96-9.15); NEUTROPHILS PERCENT AUTO 59 % (41-73); Platelet Count 261 K/mm3 (150-400); RDW Coefficient Variation 12.3 % (11.7-14.2); RDW Standard Deviation 43.7 fL (35.1-46.3); Red Blood Cell Count 3.27 M/mm3 (4.30-5.90); White Blood Cell Count 8.64 K/mm3 (4.00-11.30)
[2020-11-13 05:28] LABS: Alanine Aminotransfer (ALT/SGP 18 U/L (12-78); Albumin, Blood 2.1 g/dL (3.4-5.0); Albumin/Globulin Ratio 0.4 (0.8-1.8); Alk Phos 226 U/L (50-136); Anion Gap 6 mmol/L (6-16); Aspartate Aminotrans (AST/SGOT 44 U/L (12-37); Blood Urea Nitrogen 10 mg/dL (8-24); CO2, Blood 27 mmol/L (21-32); Calcium, Blood 8.7 mg/dL (8.5-10.1); Chloride, Blood 103 mmol/L (98-108); Creatinine, Blood 0.77 mg/dL (0.60-1.20); Globulin, Blood 4.8 g/dL (2.2-4.0); Glomerular Filtration Rate >60 (60-); Glucose, Blood 90 mg/dL (70-99); Magnesium, Blood 1.7 mg/dL (1.6-2.4); Potassium, Blood 3.8 mmol/L (3.5-5.5); Sodium, Blood 136 mmol/L (136-145); Total Protein, Blood 6.9 g/dL (6.4-8.2)
--- NOTE | 2020-11-13 18:16 | NUR ---
11/13/20 phone meeting planned with Kayla Gallardo and Canelo Phillips MCM. Friday 2:00 pm To discuss current care needs and where Medicaid process is today.
--- NOTE | 2020-11-13 18:20 | NUR ---
11/13/20 phone meeting planned with Kayla Gallardo and Canelo Phillips MCM. Friday 2:00 pm To discuss current care needs and where Medicaid process is today.
--- NOTE | 2020-11-13 18:40 | NUR ---
PT IMPROVED FROM LAST WEEK WHEN I TOOK CARE OF HIM. MORE LUCID CONVERSATION. SON IN TO SEE TODAY. PT AMBULATED SBA HANDS ON ASST TO MIN ASST TO BATHROOM. STILL QUITE UNSTEADY. DID HVE 2 B/M TODAY. NO NEW CONCERNS NOTED. BED IN LOW POSITION, CALL LITE ;IN REACH, BED ALARN=M ON FOR SAFETY. CHE FOR SAFETY
--- NOTE | 2020-11-14 06:24 | NUR ---
SHIFT SUMMARY NO ACUTE CHANGES THIS SHIFT. AOX2-SELF & PLACE. FORGETFUL/IMPULSIVE @TIMES. NONSENSICAL SPEECH @TIMES. HAD 1 MED SOFT SCHMIDT BM TONIGHT, RECIEVING LACTALOSE. PLEASENT & COOPERATIVE c CARE. VSS. DENIES PAIN, N/V OR DYSPNEA. CALL LIGHT & BED ALARM IN PLACE.
--- NOTE | 2020-11-14 15:07 | NUR ---
PATIENT REMAINS PLEASANT AND COOPERATIVE WITH STAFF. VITALS STABLE. PATIENT HAS JUST HAD HIS THIRD BM FOR TODAY; WILL NOTIFY COMPUTER SYSTEMS TECHNOLOGY INSTRUCTOR SO THEY WILL HOLD HS DOSE OF LACTULOSE. NO ACUTE CHANGES TO REPORT OF AT THIS TIME. CALL LIGHT WITHIN REACH.
--- NOTE | 2020-11-14 16:19 | NUR ---
ADMIT: 09/11/20 DISCHARGE: DX: hypoonatremia CC: cpeabody Page 6 HIPPA-CHERYL KEEN [phone] WORKS 12 HOURS A DAY. ONLY HOME IN EVENING.- not activily participating in his discharge planning as of 10/26/20. cp VIDHI- JAROCHO , SON, DAUGHTER KARYNA, Medicaid showcase maker - Kayla Gallardo [phone] fax [phone] 11/14/20 Phone meeting with Kayla Gallardo and Canelo Phillips MCM. Discussed OT PT evaluations, daily care that he can participate in. Zachs dementia keeps him from remembering what to do for daily care. He is getting physically stronger but relys on cues and balance assistance. Kayla will review with her frame sample and pattern supervisor to see if state review needed. May have a answer within a week for medicaid acceptance. Canelo will contact [facility] to discuss his current status and possible placement to their facility soon. cp
--- NOTE | 2020-11-15 06:18 | NUR ---
SHIFT SUMMARY NO ACUTE CHANGES THIS SHIFT. AOX3-SELF, PLACE, FOLLOWING DIRECTIONS. UNAWARE DATE. VSS. PLEASENT & COOPERATIVE c CARE. REPORTED 7/10 LOW BACK PAIN, MEDICATED 1X c 2.5MG OXYCODONE & PT ABLE TO REST. NO BM THIS SHIFT, INCONT OF URINE, CHANGED PRN. AWAITING SAFE DC PLAN. CALL LIGHT & BED ALARM IN PLACE FOR SAFETY.
--- NOTE | 2020-11-15 15:39 | NUR ---
PATIENT IS ALERT AND ORIENTED TO SELF AND PLACE. PLEASANT AND COOPERATIVE WITH STAFF. ONE PERSON MAX ASSIST WITH TRANSFERS/AMBULATION TO THE BATHROOM TODAY. VITALS HAVE BEEN STABLE. CONTINUES TO TAKE LACTULOSE FOR ENCEPHALOPATHY; PATIENT TAKES WITHOUT COMPLAINT. NO ACUTE CHANGES TO REPORT OF AT THIS TIME. PATIENT IN ROOM TALKING WITH "PASTOR KAMARA" AT BEDSIDE. CALL LIGHT WITHIN REACH.
--- NOTE | 2020-11-16 06:33 | NUR ---
SHIFT SUMMARY PATIENT ALERT AND ORIENTED TO SELF. WAS MEDICATED ONCE PER EMAR FOR PAIN. NO COMPLAINTS OF SHORNTESS OF BREATH. PATIENT SLEPT WELL OVERNIGHT. BED IN LOWEST POSITION WITH WHEELS LOCKED AND ALARM ON. CALL LIGHT WITHIN REACH. REPORT GIVEN TO ONCOMING RN.
--- NOTE | 2020-11-16 19:25 | NUR ---
SHIFT SUMMARY: NO ACUTE CHANGES TO REPORT THIS SHIFT. PT A&O X1 (SELF); CALM AND COOPERATIVE WITH CARE. MEDEICATED FOR PAIN PER EMAR. ASPIRATION PRECAUTIONS: MEDS WHOLE IN APPLE SAUCE. MEDICALLY STABLE; AWAITING PLACEMENT. REPORT GIVEN TO ONCOMING RN.
--- NOTE | 2020-11-17 05:50 | NUR ---
SHIFT SUMMARY: PATIENT IS A&OX1, UP TO THE BATHROOM WITH SBA X1 AND WALKER. INC. OF URINE AT TIMES. BED ALARM IS ON FOR SAFETY BP AT HS WAS 99/63, PROPANOLOL IS HELD PER PARAMETERS ON NOV. AM BP WAS 136/97.
--- NOTE | 2020-11-17 19:32 | NUR ---
SHIFT SUMMARY: NO ACUTE CHANGES TO REPORT THSI SHIFT. PT A&O X2 (SELF & PLACE). MEDICATED FOR PAIN PER EMAR. MEDICALLY STABLE; AWAITING PLACEMENT. REPORT GIVEN TO ONCOMING RN.
--- NOTE | 2020-11-18 04:23 | NUR ---
SHIFT SUMMARY: PATIENT IS A&O TO SELF, COOPERATIVE WITH STAFF. UP TO THE BATHROOM WITH A SBA. VSS, CONTINUES TRO REPORT PAIN IN LOW BACK, ROXICODONE BID IS EFFECTIVE ALONG WITH REPOSITIONING AND DISTRACTION.
--- NOTE | 2020-11-18 17:16 | NUR ---
SHIFT SUMMARY PATIENT MEDICATED X1 FOR PAIN, DENIES NAUSEA AND SHORTNESS OF BREATH. PATIENT UP SBA IN ROOM. EATING AND DRINKING WELL. AFTERNOON DOSE OF LACTULOSE HELD PATIENT HAD 3 STOOLS BEFORE LUNCH. VISITOR IN AFTERNOON. COOPERATIVE WITH CARE.
--- NOTE | 2020-11-19 07:11 | NUR ---
SHIFT SUMMARY: VSS, NO ACUTE CHANGES THIS SHIFT. BACK PAIN WAS TREATED WITH AQUA PAD AND ROXICODONE 2.5 MG EFFECTIVELY. BED ALARM IS ON FOR SAFETY.
--- NOTE | 2020-11-19 17:04 | NUR ---
SHIFT SUMMARY PATIENT MEDICATED X1 FOR BACK PAIN THIS SHIFT. DENIES NAUSEA AND SHORTNESS OF BREATH. PATIENT UP INDEPENDENT IN ROOM, WITH REMOTE CAMERA ON. LACTULOSE CHANGED TO BID, PER DR. MARS, DUE TO FREQUENT STOOLS. VISITOR IN AFTERNOON. EATING AND DRINKING WELL. COOPERATIVE WITH CARE.
--- NOTE | 2020-11-20 04:11 | NUR ---
SUMMARY NO ISSUES NOTED. PT VOIDED WELL AND HAD A BM. PT SLEPT WELL T/O SHIFT. PT CURRENTLY AWAKE WATCHING TV. CALL LIGHT IN REACH AND BED ALARM ON.
--- NOTE | 2020-11-20 17:11 | NUR ---
SHIFT SUMMARY PATIENT DENIES PAIN, NAUSEA, AND SHORTNESS OF BREATH. PATIENT UP INDEPENDENT IN ROOM, WITH CAMERA ON. PATIENT HAD VISIT FROM [facility] THIS AFTERNOON. POOR PO INTAKE TODAY. COOPERATIVE WITH CARE.
--- NOTE | 2020-11-21 04:06 | NUR ---
SUMMARY NO NEW ISSUES NOTED. PT HAS BEEN PLESANT AND COOPERATIVE. PT HAS BEEN WATCHING TV FOR MOST OF THE SHIFT. PT CURRENTLY AWAKE AND IN NO DISTRESS. CALL LIGHT IN REACH.
--- NOTE | 2020-11-21 18:13 | NUR ---
SHIFT SUMMARY: NO ACUTE EVENTS. C/O LOW BACK PAIN, MEDICATED PER EMAR. DENIED NUASEA. GETTING UP TO BR INDEPENDENTLY. TOLERATING DIET. WAS APPROVED FOR MEDICAID TODAY PER HIS SON.
--- NOTE | 2020-11-21 21:56 | NUR ---
11/21/20 Received phone message from Kayla Gallardo that addtional medical review is waived and we can move forward with placement. Updated Dixie MARSH of medicaid approval, she asked that i send packets for placement and call the family to update. s/w Herbert at [facility], they will not have availability for 2 weeks for a male. They will review Andrea again since he has had changes in condition in the last month. s/w Linnea koo, [facility], no availability at this time [place], no memory care, just snf. s/w Morgan at [facility], fax packet [phone]. Available in [employer] and [employer]. Josue will have opportunity to move to [place] when there is a opening. Faxed packet. s/w Danita at [facility] in [place], has openings, faxed packet today. She reviewed, he is a good canidate. No interview scheduled yet. s/w Douglas at [facility], may have availability in 2 weeks, faxed packet to his attention today. s/w Janette at [facility], Need to Fax packet, 12pm 11/23/20 will interview Josue in person at [facility]. l/m at [facility] Memory care, Candis, director. Any availability? [place]. s/w Son Bradley by telephone today, He would like his DAD to stay as close as possible. His sister does not want [facility], He approved for me to send packet out of town, Wants [place] at a last resort due to distance away. Let Bradley know that Josue staying until the perfect place is found is not possible. When we find a place to accept him he will need to go there or go home to wait for the perfect place. Said he understood. Will continue to call for placement on Friday. cp
--- NOTE | 2020-11-22 05:47 | NUR ---
PT IS ALERT, FORGETFUL AND IMPULSIVE AND VERY KAIBAB. PT DID NOT CALL THIS SHIFT, WOULD SET OFF BED ALARM WHEN GETTING UP TO RESTROOM.
--- NOTE | 2020-11-22 18:17 | NUR ---
SHIFT SUMMARY: NO ACUTE EVENTS. PLEASANT AND COOPERATIVE. HAD VISIT FROM DAUGHTER TODAY. IS INDEPENDENT IN ROOM. MEDICATED FOR LOW BACK PAIN X 1 WITH GOOD EFFECT. HAS APPOINTMENT TOMORROW @ NOON WITH ANKITA LIM FROM [facility] REGARDING POSSIBLE PLACEMENT. WENT ON LONG DISTANCE WALK WITH SHAYY FROM PHYSICAL THERAPY, TOLERATED WELL.
[2020-11-23 04:58] LABS: BASOPHILS ABSOLUTE AUTO 0.07 K/mm3 (0.00-0.23); BASOPHILS PERCENT AUTO 1 % (0-2); EOSINOPHILS ABSOLUTE AUTO 0.36 K/mm3 (0.00-0.68); EOSINOPHILS PERCENT AUTO 3 % (0-6); Hemoglobin 11.2 g/dL (13.5-17.5); IMMATURE GRAN ABSOLUTE AUTO 0.03 K/mm3 (0.00-0.10); IMMATURE GRAN PERCENT AUTO 0 % (0-1); LYMPHOCYTES ABSOLUTE AUTO 2.32 K/mm3 (0.84-5.20); LYMPHOCYTES PERCENT AUTO 21 % (21-46); MONOCYTES ABSOLUTE AUTO 0.81 K/mm3 (0.16-1.47); MONOCYTES PERCENT AUTO 8 % (4-13); Mean Corpuscular HGB 32.4 pg (26.0-34.0); Mean Corpuscular HGB Conc 33.9 g/dL (31.5-36.5); Mean Corpuscular Volume 95 fL (80-100); Mean Platelet Volume 9.8 fL (9.1-12.4); NEUTROPHILS ABSOLUTE AUTO 7.25 K/mm3 (1.96-9.15); NEUTROPHILS PERCENT AUTO 67 % (41-73); Platelet Count 253 K/mm3 (150-400); RDW Coefficient Variation 12.5 % (11.7-14.2); RDW Standard Deviation 43.3 fL (35.1-46.3); Red Blood Cell Count 3.46 M/mm3 (4.30-5.90); White Blood Cell Count 10.84 K/mm3 (4.00-11.30)
[2020-11-23 05:16] LABS: Alanine Aminotransfer (ALT/SGP 17 U/L (12-78); Albumin, Blood 2.4 g/dL (3.4-5.0); Albumin/Globulin Ratio 0.5 (0.8-1.8); Alk Phos 174 U/L (50-136); Anion Gap 8 mmol/L (6-16); Aspartate Aminotrans (AST/SGOT 32 U/L (12-37); Bilirubin, Total 0.5 mg/dL (0.1-1.0); Blood Urea Nitrogen 12 mg/dL (8-24); CO2, Blood 24 mmol/L (21-32); Calcium, Blood 9.4 mg/dL (8.5-10.1); Chloride, Blood 104 mmol/L (98-108); Creatinine, Blood 0.75 mg/dL (0.60-1.20); Glomerular Filtration Rate >60 (60-); Glucose, Blood 106 mg/dL (70-99); Potassium, Blood 3.8 mmol/L (3.5-5.5); Sodium, Blood 136 mmol/L (136-145); Total Protein, Blood 7.4 g/dL (6.4-8.2)
--- NOTE | 2020-11-23 06:09 | NUR ---
SHIFT SUMMARY PT IS A 60 Y/O MALE, ADMITTED FOR HYPONATREMIA AND CURRENTLY AWAITING PLACEMENT. HE IS A&O X 2, INDEPENDENT TO THE BATHROOM. HE WAS MEDICATED ONCE THIS AM FOR CHRONIC BACK PAIN. NO C/O NAUSEA OR SOB. VITAL SIGNS STABLE. PT SLEPT WELL THROUGH THE NIGHT. NO ACUTE CHANGES IN PT CONDITION NOTE DURING THE NIGHT. WILL CONTINUE TO MONITOR AND TREAT PER EMAR UNTIL HAND OFF TO DAY SHIFT RN.
--- NOTE | 2020-11-23 17:25 | NUR ---
11/23/20 Janette from [facility] agreed to accept Kevin. no admit date yet. Left message at [facility], Son told me they are now accepting MedicaidLeft message for SANTO Padilla about [facility] and acceptance at [facility]. s/w Son Bradley about acceptance by [facility], wants [facility] if possible. cp
--- NOTE | 2020-11-23 18:37 | NUR ---
SHIFT SUMMARY NO ACUTE CHANGES T/O SHIFT, PT A&O, CALM AND COOPERATIVE WITH CARE. PT INDEPENDENT IN THE ROOM, NO COMPLAINTS OF ANY DISTRESS. TREATED X1 FOR PAIN DURING THIS SHIFT. PT HAD MEETING TODAY WITH KRYSTIN DIAZ FOR POSSIBLE PLACEMENT. PT IS CURRENTLY SITTING UP EATING DINNER. CALL LIGHT IS WITHIN REACH, PT CALLS APPROPRIATELY.
--- NOTE | 2020-11-24 05:31 | NUR ---
SHIFT SUMMARY PT IS A 60 Y/O MALE, ADMITTED FOR HYPONATREMIA, AND CURRENTLY AWAITING PLACEMENT. HE IS A&O X 2, INDEPENDENT TO THE BATHROOM. NO C/O PAIN, NAUSEA OR SOB. PT SLEPT WELL THROUGH THE NIGHT. VITAL SIGNS STABLE. NO ACUTE CHANGES IN PT CONDITION NOTED. WILL CONTINUE TO MONITOR OR TREAT PER EMAR UNTIL HAND OFF TO DAY SHIFT RN.
--- NOTE | 2020-11-24 15:33 | NUR ---
SUMMARY: Admit: 11/21/20 11/24/20 Met with Shailesh to discuss rehab, he wants to return to [facility]. Most likely going to dc on oral antibiotics. Dr Garcia is waiting for cultures and working on pain control. s/w VAZQUEZ Pride, she agrees with return to [facility], termination clerk plan to move to [facility], a deposit has been given to [facility]. SNF authorization has been submitted, not sure if we will get it before the weekend. Care management has a moran to Utilization, they can look for fax on SAT and SUN. cp 11/24/20 I tried to contact Chantal at [facility] again, left another message, s/w senior technical business analyst and he stated they are accepting Medicaid. I asked for Chantal to call me MYKEL, Josue has been accepted to a out of town facility, but family would really like him to stay here in [place]. Text Son Bradley, explained the above and I will fax a packet to [facility] to start the process of review. DR Garcia agree's that we need to pursue in town placement over out of town as long as it is not more than a couple days extra. . cp
--- NOTE | 2020-11-24 18:06 | NUR ---
SHIFT SUMMARY NO ACUTE CHANGES THIS SHIFT, A&Ox4, CALM AND COOPERATIVE WITH CARE. NO COMPLAINTS OF DISTRESS. PT TREATED FOR PAIN X2 THIS SHIFT. PT REMAINS INDEPENDENT IN THE ROOM WITH STEADY GAIT. WAITING FOR PLACEMENT, NO NOTE FROM [facility] JOE SEEN REGARDING THE MEETING THAT TOOK PLACE YESTERDAY. PT IS CURRENTLY SITTING UP AT BEDSIDE EATING DINNER, CALL LIGHT IS WITHIN REACH. PT CALLS APPROPRIATELY.
--- NOTE | 2020-11-25 04:50 | NUR ---
CABINET FINISHER SUMMARY PT A/O X4 WITH NON-SENSICAL SPEECH AT TIMES. INDEPENDENT IN ROOM. PT REPORTS NO BM SO FAR. SLEPT WELL TONIGHT. MEDICATED ONCE FOR BACK PAIN FOR EMAR. DENIES SOB. VSS. USES CALL LIGHT APPROPRIATELY. NO ACUTE CHANGES. CALL LIGHT WITHIN REACH.
--- NOTE | 2020-11-25 17:59 | NUR ---
SHIFT SUMMARY. A&OX3, INDEPENDENT IN ROOM, PLEASANT AND COOPERATIVE WITH CARE. PT DENIES N/V, SOB. PT REPORTED BACK PAIN TOWARDS THE END OF SHIFT, MEDICATED PER ORDERS. NO NEW CHANGES OR CONCERNS.
--- NOTE | 2020-11-26 04:37 | NUR ---
DIGITAL PRODUCER SUMMARY PT A/O X3 WITH FORGETFULNESS. DENIES CHEST PAIN, SOB, DIZZINIESS. NO ACUTE CHANGES. SLEPT WELL TONIGHT. PLEASANT AND COOPERATIVE. INDEPENDENT IN ROOM. CALL LIGHT WITHIN REACH.
--- NOTE | 2020-11-26 17:48 | NUR ---
SHIFT SUMMARY. A&OX4, INDEPENDENT IN ROOM, PLEASANT AND COOPERATIVE WITH CARE. CHRONIC BACK PAIN MANAGED WELL WITH CURRENT ORDERS. NO N/V, SOB. IN TO VISIT THIS AFTERNOON. NO NEW CHANGES OR CONCERNS.
--- NOTE | 2020-11-27 03:56 | NUR ---
REVENUE CYCLE MANAGER SUMMARY PT A/O X3 WITH FORGETFULNESS. PT SLEPT ON AND OFF TONIGHT. PLEASANT AND COOPERATIVE. MEDICATED ONCE FOR PAIN OVERNIGHT. DENIES CHEST PAIN, SOB, DIZZINIESS. INDEPENDENT IN ROOM. NO ACUTE CHANGES. CALL LIGHT WITHIN REACH.
--- NOTE | 2020-11-27 16:53 | NUR ---
SHIFT SUMMARY PATIENT A/O X3. PATIENT COOPERATIVE WITH CARE. NO ACUTE CHANGES THIS SHIFT. PATIENT IS INDEPENDENT IN THE ROOM. PATIENT WORKED WITH PT THIS SHIFT, WALKED IN THE HALLWAY. PATIENT CURRENTLY SITTING UP IN BED WATCHING TELEVISION.
--- NOTE | 2020-11-27 18:42 | NUR ---
ADMIT: 09/11/20 DISCHARGE: DX: hypoonatremia CC: cpeabody Page 7 BETH KEEN [phone] WORKS 12 HOURS A DAY. ONLY HOME IN EVENING.- not actively participating in his discharge planning as of 10/26/20. philip GALARZA JAROCHO , SON, DAUGHTER KARYNA, Medicaid renal case manager - Kayla Gallardo [phone] fax [phone] 11/27/20 Left another message for [facility] at [facility].[phone]. Text son Jarocho that I have not heard from [facility]. I tried to contact Layla Fisher town planner that is assisting with discharge plan to [facility], She is not logged in today. philip
--- NOTE | 2020-11-28 05:19 | NUR ---
pT MORE ALERT & ABLE TO AMBULATE IN ROOM & TOILET SELF. VERY HARD OF HEARING BUT ABLE TO COMMUNICATE. pLEASANT CONFUSION.
--- NOTE | 2020-11-28 16:13 | NUR ---
ADMIT: 09/11/20 DISCHARGE: DX: hyponatremia CC: [email or web address] Page 7 BETH KEEN [phone] WORKS 12 HOURS A DAY. ONLY HOME IN EVENING. - Not actively participating in his discharge planning as of 10/26/20. cp GEOVANNI JAROCHO, SON, DAUGHTER KARYNA, Medicaid employment evaluator/case manager - Kayla Gallardo [phone] fax [phone] Janette [facility] - [phone] fax [phone]. 11/28/20 Left another message for Chantal that I need to know today if she has any availability. Called Janette at [facility] [employer] about move in date. Left message. cp Return call from Chantal at [facility]. They are not accepting new Medicaid patients at this time. Text Jarocho, Asked him to give Janette a call on her cell phone at [facility]. She is ready for Josue to move in on . Sent ICD 10 codes for Janette, requested med rec from Dr Guillermo prior to move in. Text Jarocho again at 4:00 pm, Janette has been unable to reach him today. Plans to follow up with Janette on Friday to make sure furniture is arriving, will fax med rec when ready, I will text or call Jarocho regarding transportation for . cp
--- NOTE | 2020-11-28 18:29 | NUR ---
SHIFT SUMMARY PATIENT ALERT AND ORIENTED X3 THIS SHIFT. PATIENT INDEPENDENT IN THE ROOM. NO ACUTE CHANGES THIS SHIFT. PATIENT MEDICATED 2X FOR BACK PAIN THIS SHIFT. PATIENT SHOWERED INDEPENDENTLY. PATIENT AWAITING PLACEMENT. PATIENT CURRENTLY SITTING UP IN BED WATCHING TELEVISION.
--- NOTE | 2020-11-28 20:50 | NUR ---
ASSUMPTION OF CARE. ESTHER IS AOX2, DOES NOT KNOW DAY OR TIME UNLESS HE LOOKS AT THE BOARD. IS FORGETFUL BUT ALSO CHITIMACHA WHICH MIGHT PLAY A ROLE IN IT. STATES PAIN TO LOWER BACK BUT FORGOT HE GOT HIS PAIN MEDICATION AROUND 1700 TONIGHT. ABLE TO MOVE AROUND FREELY WITH NO PROBLEMS. INDEPENDENT IN THE ROOM. LUNG SOUNDS ARE CLEAR, HR REGULAR. DENIES CP, SOB, OR DIZZINESS. ADMINISTERED MEDS PER EMAR. NO OTHER NEEDS NOTED. CALL LIGHT IS IN REACH.
--- NOTE | 2020-11-29 06:34 | NUR ---
SHIFT SUMMARY: AOX2, FORGETFUL AT TIMES. INDEPENDENT IN THE ROOM. VERY MENTASTA. COOPERATIVE. MEDICATED FOR PAIN X1 THIS AM. GOOD APPETITE. LS CLEAR. TAKES MEDS WHOLE WITH WATER. WENT TO BED EARLY AND SLEPT WELL T/O NIGHT. NO ACUTE CHANGES. CALL LIGHT HAS REMAINED IN REACH.
[2020-11-29] MEDS ORDERED: FOLI1 PO (08:44)
[2020-11-29] MEDS ORDERED: Enulose10 GM/15 M PO (08:45)
--- NOTE | 2020-11-29 08:45 | NUR ---
PT PLEASANT COOP THIS AM. A/O X2, FORGETFUL SOME GRANDIOSE IDEAS. CONCRETE. H/R REG, NO MURMER NOTED. NO TELE. LUNGS CLEAR, RESP EASY, UNLABORED. ON R.A BT X4 LAST BM THIS AM. STATES X2 LAST NITE. DID REQUEST HOLD LACTULOSE THIS AM. VOIDS INDEPENDANT TO BATHROOM. BED IN LOW POSITION, PALAK LITE IN REACH, CALLS APROP
[2020-11-29] MEDS ORDERED: LEVO T PO (08:46)
[2020-11-29] MEDS ORDERED: ANTIFUNGAL POWD71 GM TOP (08:48)
[2020-11-29] MEDS ORDERED: PROP10 PO (08:48)
[2020-11-29] MEDS ORDERED: SPIR25 PO (08:49)
[2020-11-29] MEDS ORDERED: Hair, Skin & N1 EACH PO (08:50)
[2020-11-29] MEDS ORDERED: VITAMIN B-1100 MG PO (08:51)
[2020-11-29] MEDS ORDERED: VISBIOME 112.51 EACH PO (08:52)
--- NOTE | 2020-11-29 18:15 | NUR ---
PT PLEASANT TODAY. GIRLFRIEND IN ROOM TODAY. PT CONTINUES TO BE INDEPENDANT IN ROOM AMBULATING TO BATHROOM. CONTINUED FUNCTIONAL IMPROVEMENT NOTED. CONTINUES TO BE CONFUSED ON DETAILS. CARE MGMT STATES PLANNING TO BE D/CHG TOMORROW. NO NEW CHANGES NOTED. BED IN LOW POSITION, CALL LITE IN REACH, CALLS APPROP
--- NOTE | 2020-11-29 19:18 | NUR ---
ASSUMPTION OF CARE. ESTHER IS FINISHING HIS DINNER, BUT WAS HAVING TROUBLE CALLING HIS FIANCE. HE IS MISSING A LENSE OUT OF HIS GLASSES WHICH MAKES IT HARD FOR HIM TO SEE HIS PHONE. ASSISTED WITH THE CALL, HE GOT TO TALK TO HER WHICH HE WAS HAPPY ABOUT. PAIN IS DOING GOOD AT THIS TIME. DENIES ANY NEEDS OR CONCERNS. CALL LIGHT IS IN REACH.
--- NOTE | 2020-11-30 06:18 | NUR ---
SHIFT SUMMARY: AOX3, FORGETFUL. INDEPENDENT. NO PAIN THIS SHIFT. SLEPT WELL T/O THE NIGHT. VS SHOWED BP IN THE 90'S, HELD BLOOD PRESSURE MEDS. BP NORMAL THIS AM. AWAITING TO PLACED TODAY IN [facility]. SPOKE TO GIRLFRIEND ABOUT IT LAST NIGHT. NO ACUTE ISSUES. CALL LIGHT REMAINS IN REACH.
[2020-11-30 12:29] LABS: Influenza A, PCR NEGATIVE (NEGATIVE); Influenza B, PCR NEGATIVE (NEGATIVE); Resp Syncytial Virus, PCR NEGATIVE (NEGATIVE); SARS-Cov-2 (COVID-19) PCR, MMC NEGATIVE (NEGATIVE)
--- NOTE | 2020-11-30 12:58 | NUR ---
1155 PT DISCHARGED WITH SIGNIFICANT OTHER TO TRANSPORT PT TO [facility]. REPORT CALLED TO RCM AT [facility]. NO NEW CHANGES OR COCERNS.
--- NOTE | 2020-11-30 17:26 | NUR ---
ADMIT: 09/11/20 DISCHARGE: 11/30/20 DX: HYPONATREMIA CC: CPERAUL PAGE 7 SHOSHANA: DISCHARGE TO [facility] [place] [phone]- [facility]? 2 WEEKS PCP BETH KEEN [phone] WORKS 12 HOURS A DAY. ONLY HOME IN EVENING. GEOVANNI AVENDAÑO , SON, DAUGHTER KARYNA, MEDICAID CHIEF DESIGN BRAN[employer] - ANA LILIA HERMAN [phone] FAX [phone] [employer] [email or web address] - [phone] FAX [phone]/30/20 Discharge to [facility] today at 12:00 noon. Covid test complete, neg, and faxed with discharge to [facility].
== END 2020-11-30 11:55 | disposition home or self-care (01) | DRG 441 ==
LOC: ER 12:50 → MEDS 12:51
PROVIDERS: Emergency Medicine; Family Medicine; Hospitalist; Internal Medicine; Internal Medicine Endocrinology, Diabetes & Metabolism; Internal Medicine Gastroenterology; Physician Assistant; Student in an Organized Health Care Education/Training Program; ADMIT Family Medicine
DX: K72.00 Acute and subacute hepatic failure without coma (principal); G92 Toxic encephalopathy; E51.2 Wernicke's encephalopathy; F10.239 Alcohol dependence with withdrawal, unspecified; E46 Unspecified protein-calorie malnutrition; N17.9 Acute kidney failure, unspecified; E87.1 Hypo-osmolality and hyponatremia; N39.0 Urinary tract infection, site not specified; R65.10 Systemic inflammatory response syndrome (SIRS) of non-infectious origin without acute organ dysfunction; K76.6 Portal hypertension; I85.10 Secondary esophageal varices without bleeding; E87.0 Hyperosmolality and hypernatremia; F10.27 Alcohol dependence with alcohol-induced persisting dementia; Z20.822 Contact with and (suspected) exposure to COVID-19; E87.6 Hypokalemia; K70.30 Alcoholic cirrhosis of liver without ascites; K43.9 Ventral hernia without obstruction or gangrene; E83.39 Other disorders of phosphorus metabolism; E87.5 Hyperkalemia; D69.59 Other secondary thrombocytopenia; K70.10 Alcoholic hepatitis without ascites; I12.9 Hypertensive chronic kidney disease with stage 1 through stage 4 chronic kidney disease, or unspecified chronic kidney disease; E83.42 Hypomagnesemia; R73.9 Hyperglycemia, unspecified; E03.9 Hypothyroidism, unspecified; Z68.31 Body mass index [BMI] 31.0-31.9, adult; N18.30 Chronic kidney disease, stage 3 unspecified; D47.2 Monoclonal gammopathy; M19.90 Unspecified osteoarthritis, unspecified site; D63.1 Anemia in chronic kidney disease; F17.210 Nicotine dependence, cigarettes, uncomplicated; Z91.14 Patient's other noncompliance with medication regimen; Z96.611 Presence of right artificial shoulder joint; Z79.899 Other long term (current) drug therapy; Z79.82 Long term (current) use of aspirin; Z88.5 Allergy status to narcotic agent; Z98.890 Other specified postprocedural states; Z90.5 Acquired absence of kidney
CPT/HCPCS: 0241U; 36415; 71046; 74177; 80048; 80053; 80069; 80074; 80076; 81001; 81003; 82140; 82607; 82728; 82746; 82947; 83036; 83540; 83550; 83605; 83690; 83735; 83880; 84100; 84165; 84443; 84484; 85025; 85610; 87040; 87086; 92526; 92610; 93005; 93010; 96361; 96365; 96366; 96368; 96375; 97110; 97112; 97116; 97129; 97162; 97166; 97168; 97530; 97535; 99285-25; A9270; G0378; G0480; J0696; J1630; J1885; J3411; J3475; J7030; J7040; J7042; J7060; Q9967

== ENCOUNTER 2022-12-12 18:17 | Emergency (ER) | payer MEDICARE, OTHER ==
[~2022-12-12] VITALS: Ht 170.2 cm; Wt 93.0 kg
[~2022-12-12 18:17] MED LIST changes: +ANTIFUNGAL POWD71 GM TOP; +Enulose10 GM/15 M PO; +FOLI1 PO; +Hair, Skin & N1 EACH PO; +LEVO T PO; +PROP10 PO; +SPIR25 PO; +VISBIOME 112.51 EACH PO; +VITAMIN B-1100 MG PO
== END 2022-12-12 21:30 | disposition home or self-care (01) ==
LOC: ER 18:17
DX: S01.01XA Laceration without foreign body of scalp, initial encounter (principal); W19.XXXA Unspecified fall, initial encounter; I10 Essential (primary) hypertension; F17.200 Nicotine dependence, unspecified, uncomplicated; Z23 Encounter for immunization; Z79.899 Other long term (current) drug therapy
CPT/HCPCS: 70450; 90714

== ENCOUNTER 2023-09-14 17:13 | Inpatient (IN) | payer MEDICARE, OTHER ==
[~2023-09-14] VITALS: Ht 177.8 cm; Wt 77.3 kg
[2023-09-14 18:31] LABS: BASOPHILS ABSOLUTE AUTO 0.04 K/mm3 (0.00-0.23); BASOPHILS PERCENT AUTO 0 % (0-2); EOSINOPHILS ABSOLUTE AUTO 0.02 K/mm3 (0.00-0.68); EOSINOPHILS PERCENT AUTO 0 % (0-6); Hematocrit 32.5 % (37.0-53.0); IMMATURE GRAN ABSOLUTE AUTO 0.09 K/mm3 (0.00-0.10); IMMATURE GRAN PERCENT AUTO 1 % (0-1); LYMPHOCYTES ABSOLUTE AUTO 1.94 K/mm3 (0.84-5.20); LYMPHOCYTES PERCENT AUTO 18 % (21-46); MONOCYTES ABSOLUTE AUTO 0.43 K/mm3 (0.16-1.47); MONOCYTES PERCENT AUTO 4 % (4-13); Mean Corpuscular HGB 29.7 pg (26.0-34.0); Mean Corpuscular HGB Conc 33.8 g/dL (31.5-36.5); Mean Corpuscular Volume 88 fL (80-100); Mean Platelet Volume 11.8 fL (9.1-12.4); NEUTROPHILS ABSOLUTE AUTO 8.57 K/mm3 (1.96-9.15); NEUTROPHILS PERCENT AUTO 77 % (41-73); NRBC ABSOLUTE 0.02 K/mm3 (0.00-0.02); NRBC Auto 0.2 /100 WBC (0.0-0.2); Platelet Count 331 K/mm3 (150-400); RDW Coefficient Variation 14.2 % (11.7-14.2); RDW Standard Deviation 44.6 fL (35.1-46.3); White Blood Cell Count 11.09 K/mm3 (4.00-11.30)
[2023-09-14 18:39] LABS: Influenza A, PCR NEGATIVE (NEGATIVE); Influenza B, PCR NEGATIVE (NEGATIVE); Resp Syncytial Virus, PCR NEGATIVE (NEGATIVE); SARS-Cov-2 (COVID-19) PCR, MMC NEGATIVE (NEGATIVE)
[2023-09-14 18:58] LABS: Albumin, Blood 2.6 g/dL (3.4-5.0); Albumin/Globulin Ratio 0.4 (0.8-1.8); Bilirubin, Total 1.6 mg/dL (0.1-1.0); Bun/Creatinine Ratio 17.2 (12.0-20.0); Calcium, Blood 9.4 mg/dL (8.5-10.1); Creatinine, Blood 1.28 mg/dL (0.60-1.20); Globulin, Blood 6.2 g/dL (2.2-4.0); Total Protein, Blood 8.8 g/dL (6.4-8.2)
[2023-09-14 18:59] LABS: Potassium, Blood 4.9 mmol/L (3.5-5.5)
[2023-09-15 01:35] VITALS: BP 105/86
--- NOTE | 2023-09-15 02:29 | NUR ---
PT ARRIVED TO ROOM 215 FROM ER. PT A/O X3, IS FORGETFUL R/T SPECIFICS OF PAST EVENTS. PT VSS, PT DOES REP RECENT SOB W/EXERTION, SATS >90% ON RA. LLE SHORTENED, EXTERNALLY ROTATED, W/SWELLING NOTED TO MID THIGH. PULSES WEAK, VASCULAR DISCOLORATION NOTED TO BLE FEET. PT WIGGELS TOES, REP HX NEUROPATHY, REP SENSATION AT BASELINE. PT ORIENTED TO ROOM/CALL LIGHT, BED ALARM PLACED FOR SAFETY.
[2023-09-15 05:30] LABS: BASOPHILS ABSOLUTE AUTO 0.03 K/mm3 (0.00-0.23); BASOPHILS PERCENT AUTO 1 % (0-2); EOSINOPHILS ABSOLUTE AUTO 0.02 K/mm3 (0.00-0.68); EOSINOPHILS PERCENT AUTO 0 % (0-6); Hematocrit 29.2 % (37.0-53.0); Hemoglobin 9.7 g/dL (13.5-17.5); IMMATURE GRAN ABSOLUTE AUTO 0.02 K/mm3 (0.00-0.10); IMMATURE GRAN PERCENT AUTO 0 % (0-1); LYMPHOCYTES ABSOLUTE AUTO 1.79 K/mm3 (0.84-5.20); LYMPHOCYTES PERCENT AUTO 27 % (21-46); MONOCYTES ABSOLUTE AUTO 0.36 K/mm3 (0.16-1.47); MONOCYTES PERCENT AUTO 6 % (4-13); Mean Corpuscular HGB 29.6 pg (26.0-34.0); Mean Corpuscular HGB Conc 33.2 g/dL (31.5-36.5); Mean Corpuscular Volume 89 fL (80-100); NEUTROPHILS ABSOLUTE AUTO 4.35 K/mm3 (1.96-9.15); NEUTROPHILS PERCENT AUTO 66 % (41-73); Platelet Count 225 K/mm3 (150-400); RDW Coefficient Variation 14.1 % (11.7-14.2); RDW Standard Deviation 44.6 fL (35.1-46.3); Red Blood Cell Count 3.28 M/mm3 (4.30-5.90); White Blood Cell Count 6.57 K/mm3 (4.00-11.30)
[2023-09-15 05:40] LABS: International Normalized Ratio 1.12; Prothrombin Time Results 11.7 Sec (9.7-11.5)
[2023-09-15 06:10] LABS: Albumin, Blood 2.4 g/dL (3.4-5.0); Albumin/Globulin Ratio 0.5 (0.8-1.8); Bilirubin, Total 1.3 mg/dL (0.1-1.0); Bun/Creatinine Ratio 19.4 (12.0-20.0); Calcium, Blood 9.4 mg/dL (8.5-10.1); Creatinine, Blood 1.39 mg/dL (0.60-1.20); Globulin, Blood 5.2 g/dL (2.2-4.0); Potassium, Blood 4.1 mmol/L (3.5-5.5); Total Protein, Blood 7.6 g/dL (6.4-8.2)
[2023-09-15 06:24] VITALS: BP 94/71
[2023-09-15 07:18] VITALS: BP 107/88
--- NOTE | 2023-09-15 08:02 | NUR ---
PT VSS SINCE ARRIVING TO FLOOR. LLE REMAINS SWOLLEN, SHORTENED/EXT ROTATED. PEDAL PULSES WEAK-UNCHANGED, PT DENIES CHANGES IN SENSATION. PT IS FORGETFUL AT TIMES, REORIENTS EASILY, BED ALARM ON. PT NPO AWAITING SURGICAL PLANNING.
[2023-09-15 14:27] VITALS: BP 103/73
--- NOTE | 2023-09-15 17:18 | NUR ---
SHIFT SUMMARY PATIENT IS AOX3, FORGETFUL AT TIMES. POOR HISTORIAN. PATIENT IS IN BCKS TRACTION, WITH 10# WEIGHT. LEFT LEG IS EXTERNALLY ROTATED AND SHORTENED. MODERATE SWELLING IS NOTED. MEDICATED PER EMAR PRN FOR PAIN. ABLE TO TOLERATE PO INTAKE AND WILL BE NPO AT MIDNIGHT. IVF RUNNING AT 75/HR. PER HX, PATIENT DRINKS 2-3 BEERS A NIGHT ORDER FOR CIWA SET PLACED. CURRENT SCORE OF 4, PATIENT DOES HAVE VISIBLE SHAKES, AND CONFUSION ON SITUATION. PATIENT DID ATTEMPT TO GET OUT OF BED BUT WAS REDIRECTABLE. PATIENT IS COOPERATIVE AND PLEASANT. BED ALARM IS ON. CALL LIGHT IS IN REACH. VSS.
[2023-09-15 19:33] VITALS: BP 103/56
[2023-09-15 19:34] VITALS: BP 103/56
[2023-09-16] VITALS (15 sets, daily range): BP systolic 97–148; BP diastolic 64–106
[2023-09-16 05:57] LABS: BASOPHILS ABSOLUTE AUTO 0.02 K/mm3 (0.00-0.23); BASOPHILS PERCENT AUTO 1 % (0-2); EOSINOPHILS ABSOLUTE AUTO 0.03 K/mm3 (0.00-0.68); EOSINOPHILS PERCENT AUTO 1 % (0-6); Hematocrit 25.6 % (37.0-53.0); Hemoglobin 8.4 g/dL (13.5-17.5); IMMATURE GRAN ABSOLUTE AUTO 0.04 K/mm3 (0.00-0.10); IMMATURE GRAN PERCENT AUTO 1 % (0-1); LYMPHOCYTES ABSOLUTE AUTO 1.44 K/mm3 (0.84-5.20); LYMPHOCYTES PERCENT AUTO 33 % (21-46); MONOCYTES ABSOLUTE AUTO 0.26 K/mm3 (0.16-1.47); MONOCYTES PERCENT AUTO 6 % (4-13); Mean Corpuscular HGB 29.7 pg (26.0-34.0); Mean Corpuscular HGB Conc 32.8 g/dL (31.5-36.5); Mean Corpuscular Volume 91 fL (80-100); Mean Platelet Volume 11.1 fL (9.1-12.4); NEUTROPHILS ABSOLUTE AUTO 2.61 K/mm3 (1.96-9.15); NEUTROPHILS PERCENT AUTO 59 % (41-73); Platelet Count 173 K/mm3 (150-400); RDW Coefficient Variation 14.5 % (11.7-14.2); RDW Standard Deviation 46.4 fL (35.1-46.3); Red Blood Cell Count 2.83 M/mm3 (4.30-5.90)
[2023-09-16 06:18] LABS: Albumin, Blood 2.1 g/dL (3.4-5.0); Albumin/Globulin Ratio 0.4 (0.8-1.8); Bilirubin, Total 0.8 mg/dL (0.1-1.0); Bun/Creatinine Ratio 18.4 (12.0-20.0); Calcium, Blood 8.8 mg/dL (8.5-10.1); Creatinine, Blood 0.98 mg/dL (0.60-1.20); Globulin, Blood 4.7 g/dL (2.2-4.0); Potassium, Blood 3.3 mmol/L (3.5-5.5); Total Protein, Blood 6.8 g/dL (6.4-8.2)
--- NOTE | 2023-09-16 07:28 | NUR ---
PT VSS T/O NIGHT. LLE REMAINS SHORTENED/EXT ROTATED. 10# BUCKS TX IN PLACE T/O NIGHT, PT REP PAIN LAKSHMI SINCE TX PLACED, DECLINED NEED FOR PAIN MEDS. NO CHANGES TO PULSES AND CAP REFILL. PT NPO POST MIDNIGHT, IVF CONT PER ORDERS. CIWA 4. PT MEDICATED FOR PAIN THIS AM PRIOR TO TRANSPORT FOR MRI. PT REMAINS PLEASANTLY CONFUSED, REORIENTED PRN.
--- NOTE | 2023-09-16 07:30 | NUR ---
PT TO MRI VIA [facility] TRANSPORT.
--- NOTE | 2023-09-16 09:40 | NUR ---
PATIENT TRANSPORTED TO OUTPATIENT MRI BY [facility] @ [id number]. AWAITING RETURN,
--- NOTE | 2023-09-16 10:22 | NUR ---
PATIENT BACK TO ROOM 215 VIA [facility]. SETTLED AND TRACTION REPLACED. VSS. MEDICATED FOR PAIN. NEW IV PLACED. TOLERATES WELL.
--- NOTE | 2023-09-16 18:15 | NUR ---
SHIFT SUMMARY PATIENT POD0 LEFT FEMUR RODDING. PATIENT IS AOX2-3, CONFUSED AT TIMES. DENIES PAIN AT THIS TIME. ABLE TO TURN AND REPOSITION WITH ASSISTANCE. GAUZE WITH FOAM TAPE DRESSING X3 TO LEFT HIP. C/D/I. PATIENT VSS. ABLE TO EAT AND DRINK. INCONT WITH CLEAN ATTENDS IN PLACE. BED ALARM ON FOR SAFETY. CALL LIGHT IN REACH.
[2023-09-17 00:01] VITALS: BP 95/74
[2023-09-17 04:08] VITALS: BP 99/68
[2023-09-17 04:58] LABS: BASOPHILS ABSOLUTE AUTO 0.01 K/mm3 (0.00-0.23); BASOPHILS PERCENT AUTO 0 % (0-2); EOSINOPHILS PERCENT AUTO 0 % (0-6); Hematocrit 24.9 % (37.0-53.0); Hemoglobin 7.8 g/dL (13.5-17.5); IMMATURE GRAN ABSOLUTE AUTO 0.06 K/mm3 (0.00-0.10); IMMATURE GRAN PERCENT AUTO 1 % (0-1); LYMPHOCYTES ABSOLUTE AUTO 1.05 K/mm3 (0.84-5.20); LYMPHOCYTES PERCENT AUTO 14 % (21-46); MONOCYTES ABSOLUTE AUTO 0.28 K/mm3 (0.16-1.47); MONOCYTES PERCENT AUTO 4 % (4-13); Mean Corpuscular HGB Conc 31.3 g/dL (31.5-36.5); Mean Corpuscular Volume 93 fL (80-100); Mean Platelet Volume 11.1 fL (9.1-12.4); NEUTROPHILS ABSOLUTE AUTO 6.32 K/mm3 (1.96-9.15); NEUTROPHILS PERCENT AUTO 82 % (41-73); Platelet Count 181 K/mm3 (150-400); RDW Coefficient Variation 14.4 % (11.7-14.2); RDW Standard Deviation 47.5 fL (35.1-46.3); Red Blood Cell Count 2.69 M/mm3 (4.30-5.90); White Blood Cell Count 7.72 K/mm3 (4.00-11.30)
[2023-09-17 05:42] LABS: Albumin/Globulin Ratio 0.4 (0.8-1.8); Bilirubin, Total 0.6 mg/dL (0.1-1.0); Bun/Creatinine Ratio 21.1 (12.0-20.0); Calcium, Blood 8.2 mg/dL (8.5-10.1); Creatinine, Blood 1.23 mg/dL (0.60-1.20); Globulin, Blood 4.7 g/dL (2.2-4.0); Magnesium, Blood 1.7 mg/dL (1.6-2.4); Potassium, Blood 4.1 mmol/L (3.5-5.5); Total Protein, Blood 6.7 g/dL (6.4-8.2)
[2023-09-17 07:15] VITALS: BP 110/69
--- NOTE | 2023-09-17 07:28 | NUR ---
POD 1 S/P L FEMUR REP. PT VSS T/O NIGHT. DRESSINGS CDI, MILD SWELLING NOTED TO LEFT THIGH. PAIN MGD PER EMAR W/REP RELIEF. PT PLEASANTLY CONFUSED, IS COOP W/CARE, USING CALL LIGHT FOR ASSISTANCE. PLAN TO MOBILIZE W/PT AND AWAIT DC PLANNING.
--- NOTE | 2023-09-17 13:29 | NUR ---
Pt. is sitting up in a recliner when he welcomes my visit. Pt. is pleasant but displays evidence of being IROQUOIS and ocaasional confusion. Facilitate a short life review and considered matters of moshe and practice. Pt. displays evidence of trust, awareness and engagement. Pt. verbalizes appreciation for the quality of care he is receiving at [facility]. Prayed with Pt. Pt. verbalized gratitude for the spiritual care visit and welcomed this linux system engineer to return.
[2023-09-17 14:19] VITALS: BP 107/64
--- NOTE | 2023-09-17 15:06 | NUR ---
SHIFT SUMMARY: POD 1 LEFT FEMUR RODDING PATIENT IS A&OX3 WITH HX OF DEMENTIA BUT IS EASILY REORIENTED. VS ARE WNL AND IS ON RA. PAIN IS MANAGED WITH PO OXY, TYLENOL, AND IV TORADOL AT THIS TIME. DR. SERRANO CAME BY AND CHANGED THE PATIENTS DRESSING TO X3 AQUACELS ON THE LEFT HIP WITH 1 BY HIS LEFT KNEE THAT ARE ALL C/D/I. PATIENT IS A 2 PERSON MODERATE ASSIST WITH FWW AND GAIT BELT. PHYSICAL THERAPY NOTED TODAY THAT THE PATIENT HAD POOR UNDERSTANDING OF HIS TOE TOUCH WEIGHT BEARING PRECAUTIONS. PATIENT IS TOLERATING PO INTAKE AND IS CONTINENT/INCONTINENT AT TIMES WITH URNAL AIDE AND ATTENDS CHANGED PRN. PATIENT IS CURRENTLY LAYING IN THE RECLINER CHAIR WITH LEGS ELEVATED WITH CALL LIGHT IN REACH.
[2023-09-17 15:21] VITALS: BP 94/60
[2023-09-17 19:46] VITALS: BP 102/87
[2023-09-18 02:09] VITALS: BP 108/79
[2023-09-18 04:46] LABS: BASOPHILS ABSOLUTE AUTO 0.01 K/mm3 (0.00-0.23); BASOPHILS PERCENT AUTO 0 % (0-2); EOSINOPHILS ABSOLUTE AUTO 0.02 K/mm3 (0.00-0.68); EOSINOPHILS PERCENT AUTO 0 % (0-6); IMMATURE GRAN ABSOLUTE AUTO 0.04 K/mm3 (0.00-0.10); IMMATURE GRAN PERCENT AUTO 1 % (0-1); LYMPHOCYTES ABSOLUTE AUTO 1.38 K/mm3 (0.84-5.20); LYMPHOCYTES PERCENT AUTO 25 % (21-46); MONOCYTES ABSOLUTE AUTO 0.31 K/mm3 (0.16-1.47); MONOCYTES PERCENT AUTO 6 % (4-13); Mean Corpuscular HGB 29.2 pg (26.0-34.0); Mean Corpuscular HGB Conc 31.8 g/dL (31.5-36.5); Mean Corpuscular Volume 92 fL (80-100); Mean Platelet Volume 11.1 fL (9.1-12.4); NEUTROPHILS ABSOLUTE AUTO 3.75 K/mm3 (1.96-9.15); NEUTROPHILS PERCENT AUTO 68 % (41-73); Platelet Count 177 K/mm3 (150-400); RDW Coefficient Variation 14.4 % (11.7-14.2); White Blood Cell Count 5.51 K/mm3 (4.00-11.30)
[2023-09-18 05:12] LABS: Alanine Aminotransfer (ALT/SGP 14 U/L (12-78); Albumin, Blood 1.9 g/dL (3.4-5.0); Albumin/Globulin Ratio 0.4 (0.8-1.8); Alk Phos 177 U/L (50-136); Anion Gap 7 mmol/L (6-16); Aspartate Aminotrans (AST/SGOT 38 U/L (12-37); Bilirubin, Total 0.5 mg/dL (0.1-1.0); Blood Urea Nitrogen 27 mg/dL (8-24); Bun/Creatinine Ratio 25.7 (12.0-20.0); CO2, Blood 22 mmol/L (21-32); Calcium, Blood 7.9 mg/dL (8.5-10.1); Chloride, Blood 105 mmol/L (98-108); Creatinine, Blood 1.05 mg/dL (0.60-1.20); Globulin, Blood 4.5 g/dL (2.2-4.0); Glomerular Filtration Rate 80 (60-); Glucose, Blood 105 mg/dL (70-99); Potassium, Blood 3.9 mmol/L (3.5-5.5); Prostate Specific Antigen 0.124 ng/mL (0.000-4.000); Sodium, Blood 134 mmol/L (136-145); Total Protein, Blood 6.4 g/dL (6.4-8.2)
[2023-09-18 07:23] VITALS: BP 127/71
[2023-09-18 13:13] LABS: BASOPHILS ABSOLUTE AUTO 0.02 K/mm3 (0.00-0.23); BASOPHILS PERCENT AUTO 0 % (0-2); EOSINOPHILS ABSOLUTE AUTO 0.04 K/mm3 (0.00-0.68); EOSINOPHILS PERCENT AUTO 1 % (0-6); Hematocrit 23.3 % (37.0-53.0); Hemoglobin 7.3 g/dL (13.5-17.5); IMMATURE GRAN ABSOLUTE AUTO 0.04 K/mm3 (0.00-0.10); IMMATURE GRAN PERCENT AUTO 1 % (0-1); LYMPHOCYTES ABSOLUTE AUTO 1.49 K/mm3 (0.84-5.20); LYMPHOCYTES PERCENT AUTO 26 % (21-46); MONOCYTES ABSOLUTE AUTO 0.29 K/mm3 (0.16-1.47); MONOCYTES PERCENT AUTO 5 % (4-13); Mean Corpuscular HGB 29.2 pg (26.0-34.0); Mean Corpuscular HGB Conc 31.3 g/dL (31.5-36.5); Mean Corpuscular Volume 93 fL (80-100); NEUTROPHILS ABSOLUTE AUTO 3.88 K/mm3 (1.96-9.15); NEUTROPHILS PERCENT AUTO 67 % (41-73); NRBC ABSOLUTE 0.02 K/mm3 (0.00-0.02); NRBC Auto 0.3 /100 WBC (0.0-0.2); Platelet Count 200 K/mm3 (150-400); RDW Coefficient Variation 14.6 % (11.7-14.2); RDW Standard Deviation 48.4 fL (35.1-46.3); White Blood Cell Count 5.76 K/mm3 (4.00-11.30)
--- NOTE | 2023-09-18 14:42 | NUR ---
09/18/23 1442 Angela Balderas VERIFICATIONS: EDIT CHART.
--- NOTE | 2023-09-18 15:36 | NUR ---
DISCHARGE/TRANSFER TO [facility] REPORT CALLED TO [place]LE/. PT A&OX3/FORGETFUL/REQUIRES CUES/LYTTON /REORIENTATION, LAKSHMI PO, VOIDING/URINAL, AMB SBA FWW/GB TWB, NICOTINE PATCH, IVs DC'd, PAIN MGD, POD2 L HIP NAILING, AQUACEL CDI, FU WITH SURGEON X2 WEEKS. ERIC AVENDAÑO CALLED PT WHEN I WAS IN THE ROOM AND NOTIFIED HIM OF TRANSFER TO . .
--- NOTE | 2023-09-18 15:51 | NUR ---
TRANSFER - PT LEFT WITH TRANSPORT TO [facility], WEARING HIS COAT WITH HIS PHONE, WALLET AND LENTZ ZIPPED INTO HIS COAT POCKET.
[2023-09-18 16:15] LABS: PTHRP BY LC-MS/MS,PLASMA 2.8 pmol/L (0.0-2.3)
== END 2023-09-18 15:48 | DRG 481 ==
LOC: ER 17:13 → SURS 09-15 00:08
PROVIDERS: Family Medicine; Orthopaedic Surgery; Student in an Organized Health Care Education/Training Program; ADMIT Internal Medicine
PROC: HZ2ZZZZ Detoxification Services for Substance Abuse Treatment (ICD-10-PCS; 2023-09-16)
PROC: 0QS706Z Reposition Left Upper Femur with Intramedullary Internal Fixation Device, Open Approach (ICD-10-PCS; principal; 2023-09-16 12:30)
DX: S72.322A Displaced transverse fracture of shaft of left femur, initial encounter for closed fracture (principal); E87.1 Hypo-osmolality and hyponatremia; Z59.00 Homelessness unspecified; N17.9 Acute kidney failure, unspecified; F17.213 Nicotine dependence, cigarettes, with withdrawal; F03.90 Unspecified dementia, unspecified severity, without behavioral disturbance, psychotic disturbance, mood disturbance, and anxiety; W18.30XA Fall on same level, unspecified, initial encounter; E03.9 Hypothyroidism, unspecified; K70.30 Alcoholic cirrhosis of liver without ascites; E78.5 Hyperlipidemia, unspecified; F10.20 Alcohol dependence, uncomplicated; D64.9 Anemia, unspecified; Z79.899 Other long term (current) drug therapy; I87.2 Venous insufficiency (chronic) (peripheral); E55.9 Vitamin D deficiency, unspecified; Y90.0 Blood alcohol level of less than 20 mg/100 ml; I10 Essential (primary) hypertension; M19.90 Unspecified osteoarthritis, unspecified site; Z90.5 Acquired absence of kidney; Z98.890 Other specified postprocedural states; Z88.5 Allergy status to narcotic agent; Z79.890 Hormone replacement therapy; Z85.528 Personal history of other malignant neoplasm of kidney; Z71.6 Tobacco abuse counseling; Z11.52 Encounter for screening for COVID-19
CPT/HCPCS: 0241U; 36415; 71260; 73552; 73701; 73720; 74177; 80053; 82306; 82542; 83735; 83970; 84153; 85025; 85610; 86304; 87071; 87075; 87205; 88305; 88311; 93005; 93010; 96374-59; 97110; 97162; 97166; 97530; 99285-25; A9270; A9579; C1713; C1769; J0690; J1100; J1650; J1885; J2250; J2405; J2704; J3010; J3370; J3411; J3480; J7030; J7120; Q9967

== ENCOUNTER 2023-10-21 18:30 | Emergency (ER) | payer MEDICARE, OTHER ==
[~2023-10-21] VITALS: Ht 165.1 cm; Wt 68.0 kg
[2023-10-21 19:48] LABS: BASOPHILS ABSOLUTE AUTO 0.02 K/mm3 (0.00-0.23); BASOPHILS PERCENT AUTO 0 % (0-2); EOSINOPHILS ABSOLUTE AUTO 0.18 K/mm3 (0.00-0.68); EOSINOPHILS PERCENT AUTO 2 % (0-6); Hematocrit 27.6 % (37.0-53.0); Hemoglobin 8.7 g/dL (13.5-17.5); IMMATURE GRAN ABSOLUTE AUTO 0.02 K/mm3 (0.00-0.10); IMMATURE GRAN PERCENT AUTO 0 % (0-1); LYMPHOCYTES ABSOLUTE AUTO 1.66 K/mm3 (0.84-5.20); LYMPHOCYTES PERCENT AUTO 20 % (21-46); MONOCYTES ABSOLUTE AUTO 0.72 K/mm3 (0.16-1.47); MONOCYTES PERCENT AUTO 9 % (4-13); Mean Corpuscular HGB Conc 31.5 g/dL (31.5-36.5); Mean Corpuscular Volume 92 fL (80-100); NEUTROPHILS ABSOLUTE AUTO 5.66 K/mm3 (1.96-9.15); NEUTROPHILS PERCENT AUTO 69 % (41-73); Platelet Count 227 K/mm3 (150-400); RDW Coefficient Variation 14.4 % (11.7-14.2); RDW Standard Deviation 47.3 fL (35.1-46.3); White Blood Cell Count 8.26 K/mm3 (4.00-11.30)
[2023-10-21] MEDS ORDERED: NS 1,000 ML IV SCH ×2 (19:50→21:45)
[2023-10-21 20:17] LABS: Albumin, Blood 2.8 g/dL (3.4-5.0); Albumin/Globulin Ratio 0.6 (0.8-1.8); Bilirubin, Total 0.8 mg/dL (0.1-1.0); Bun/Creatinine Ratio 24.1 (12.0-20.0); Creatinine, Blood 0.87 mg/dL (0.60-1.20); Potassium, Blood 3.9 mmol/L (3.5-5.5); Total Protein, Blood 7.8 g/dL (6.4-8.2)
[2023-10-21 21:28] LABS: Influenza A, PCR NEGATIVE (NEGATIVE); Influenza B, PCR NEGATIVE (NEGATIVE); Resp Syncytial Virus, PCR NEGATIVE (NEGATIVE); SARS-Cov-2 (COVID-19) PCR, MMC NEGATIVE (NEGATIVE)
[2023-10-21 22:05] LABS: Source, Urine Voided
[2023-10-21 22:10] LABS: Bilirubin, Urine Neg (Neg); Blood, Urine Neg (Neg); Color, Urine Yellow (P-Yellow); Glucose Qualitative, Urine Neg (Neg); Ketones, Urine 2+ (Neg); Leukocyte Esterase, Urine Neg (Neg); Nitrite, Urine Neg (Neg); Protein, Urine 2+ (Neg); Urobilinogen, Urine 1+ (Normal)
[2023-10-21 22:30] LABS: Appearance, Urine Hazy (Clear)
[2023-10-21 22:31] LABS: Bacteria Few /hpf; Red Blood Cells, Urine 0-2 /hpf (0-2); Squamous Epithelial Cells Rare /hpf (Few); White Blood Cells, Urine 0-2 /hpf (0-5)
[2023-10-21 22:32] LABS: Amorphous Light (0-Heavy); Calcium Oxalate Crystals Mod /hpf; Mucus Light (0-Heavy)
[2023-10-22] MEDS ORDERED: TraMADol HCl 50 MG Tab PO ONE (01:45)
[2023-10-22] MEDS ORDERED: LORazepam 2 MG/ML 1ML Injection IV ONE (03:20)
[2023-10-22] MEDS ORDERED: Acetaminophen 325 MG TABLET PO ONE (12:20)
[2023-10-22 16:21] VITALS: BP 133/76
== END 2023-10-22 16:22 ==
LOC: ER 18:30
PROVIDERS: Emergency Medicine
DX: R62.7 Adult failure to thrive (principal); Z68.25 Body mass index [BMI] 25.0-25.9, adult; I10 Essential (primary) hypertension; F17.200 Nicotine dependence, unspecified, uncomplicated; Z96.642 Presence of left artificial hip joint; Z88.5 Allergy status to narcotic agent; Z79.899 Other long term (current) drug therapy; Z79.890 Hormone replacement therapy
CPT/HCPCS: 0241U; 73502; 80053; 81001; 82550; 85025; 93005; 93010; 96361; 96374; 97162; 97530; 99285-25; A9270; J2060; J7030

== ENCOUNTER → 2024-05-13 | Outpatient (CLI) | payer MEDICARE, OTHER ==
[2024-05-13 08:26] LABS: International Normalized Ratio 1.07; Prothrombin Time Results 11.4 Sec (9.7-11.5)
== END ==
LOC: LAB 06:50 → LAB SHORT 06:50
PROVIDERS: Family Medicine
DX: R79.1 Abnormal coagulation profile (principal); K70.30 Alcoholic cirrhosis of liver without ascites
CPT/HCPCS: 85610; 85730